=== PATIENT | female | born 1965 | race Caucasian/White ===

== ENCOUNTER 2017-11-06 19:29 | Emergency (ER) | payer OTHER, SELFPAY ==
[2017-11-06 19:31] VITALS: BP 162/88; PULSE 81; RESP 17; TEMP 37.1; O2SAT 98; BMI 33.7
--- NOTE | 2017-11-06 20:19 | RAD_ITS ---
STUDY: X-RAY - LEFT FOOT CLINICAL: Female, 52 years old. Wound to lateral foot. Pain and swelling TECHNIQUE: 3 view(s) of the foot. COMPARISON: None. FINDINGS: There is no evidence of fracture or dislocation. There is soft tissue swelling at the lateral aspect of the left foot. There is a small amount of subcutaneous air. There are no radiographic findings of osteomyelitis. There are moderate degenerative changes in the midfoot. Plantar calcaneal spur noted. There are no radiodense foreign bodies. RAD/Foot min 3 Views IMPRESSION: Soft tissue swelling with a small amount of subcutaneous air at the lateral aspect of the left foot. No radiographic findings of osteomyelitis. If concern persists, consider further evaluation with MRI. No fracture or dislocation. Moderate degenerative changes. Electronically Signed: Manolo Merino, at 20:29 EDT Tel , Service support ,
[2017-11-06 20:25] LABS: Absolute Lymphocyte Count 2.68 X10^3/ul (0.83-4.51); Absolute Neutrophil Count 5.2 X10^3/uL (2.0-7.7); Basophil% 0.3 % (0-1); Eosinophil# 0.16 X10^3/uL; Eosinophils% 1.8 % (0-5); Hematocrit 33.8 % (37-47); Hemoglobin 11.5 g/dl (12.0-15.0); Lymphocyte # 2.68 X10^3/ul (4.0); Lymphocyte % 30.9 % (19-41); Mean Corpuscular Hgb 30.7 pg (27.0-32.0); Mean Corpuscular Volume 90.1 fL (81-99); Mean Platelet Vol. 9.5 fl (6.2-12.0); Monocyte# 0.59 X10^3/uL; Monocyte% 6.8 % (0-10); Neutrophil # 5.21 X10^3/uL (2.7-7.7); Neutrophil % 60.1 % (47-70); Platelet Count 186 K/mm3 (150-450); RBC Distribution Width SD 42.6 fl (35.1-43.9); Red Blood Count 3.75 M/mm3 (4.2-5.4); White Blood Count 8.7 K/mm3 (4.4-11.0)
[2017-11-06 20:26] LABS: Basophil# 0.03 X10^3/uL
[2017-11-06 20:29] LABS: POSITIVE COUNT NO; POSITIVE DIFFERENTIAL NO; POSITIVE MORPHOLOGY NO
[2017-11-06 20:36] LABS: Anion Gap 11 (5-15); BUN 22 mg/dL (7-18); BUN/Creat Ratio 15.4 RATIO (10-20); Calcium,Total 8.7 mg/dL (8.5-10.1); Chloride 101 mmol/L (98-107); Creatinine, Serum 1.43 mg/dL (0.55-1.02); EST Glomerular Filtration Rate 41 mL/min (>60); Est Glom Filt Rate - Afr Amer 49 mL/min (>60); Estimated Creatinine Clearance 44.24 ml/min; Glucose 336 mg/dL (74-106); Potassium 4.2 mmol/L (3.5-5.1); Sodium Level 137 mmol/L (136-145)
[2017-11-06] MEDS: 0.9% Normal Saline 1,000 ML 150 ML IV (21:17)
--- NOTE | 2017-11-06 21:35 | ED.VISSUMM ---
- ER Visit Summary Date of Service: 11/06/17 Chief Complaint: Diabetic ulcer left foot History of Present Illness: The patient is a 52 F who noted a blister to the palm of her left foot in the mirror today. She does state her feet have been achy for the past week and a half. She noted a red streak on the top of her foot tonight so came in to be checked. Patient does have a history of diabetes, hypertension, high cholesterol. She does admit to being out of 2 of her diabetes medications over the past couple weeks. Physical Examination: Vital signs significant for blood pressure 162/88, otherwise unremarkable. Head and neck examination normal. Heart is regular rate and rhythm. Lung sounds are clear. Abdomen is soft nontender. Left lower extremity examination was a 3 cm diameter blister to the lateral plantar surface of the left foot. The blister does appear to be callused and thickened, but is split across the center. There is no drainage at this time. She does have a lymphangitic streak from that blister onto the top of her foot. Test Results: Left foot x-rays reveal soft tissue swelling with small amount of subcu air over the lateral left foot. There are no findings consistent with osteomyelitis. CBC was normal white count with normal differential. Hemoglobin is 11.5. Chemistry studies reveal glucose of 336, BUN 20, creatinine 1.43. I do not have any prior labs to compare to. Emergency Department Course and Treatment: Blood cultures have been drawn. Clindamycin was given IV. On repeat evaluation patient is resting comfortably. Foot is cleansed and dressed. She is encouraged to increase fluids over the next several days. We will write her for clindamycin along with refills on her Glimepiride and Januvia. If the patient develops worsening of the lymphangitic streaking, fever, chills, etc. she is to return for IV antibiotics. She voices understanding and agreement. She is referred to podiatry for follow-up. Treatment Plan: [] Disposition: Discharge Impression: Left foot blister with cellulitis This note was generated with [employer] software. It may contain incorrect words, spelling, and punctuation that were not noted in review of the chart prior to signing ED Disposition - Plan for ED Patient: Disposition: Home or Assisted Living Chief Complaint: Wound Instructions: ED Infec Skin Cellulitis Prescriptions: Glimepiride [Amaryl] 2 mg PO DAILY #14 tablet Sitagliptin Phosphate [Januvia] 100 mg PO DAILY #14 tablet Clindamycin [Cleocin] 300 mg PO 4X/DAY #80 capsule Referrals: Ted Denis MD [Primary Care Provider] - 1-2 Weeks Adrián Duron DPM [STAFF PHYSICIAN] - As Needed
--- NOTE | 2017-11-06 21:38 | DCINST.ED_ITS ---
ED Disposition - Plan for ED Patient: Disposition: Home or Assisted Living Chief Complaint: Wound Instructions: ED Infec Skin Cellulitis Prescriptions: Glimepiride [Amaryl] 2 mg PO DAILY #14 tablet Sitagliptin Phosphate [Januvia] 100 mg PO DAILY #14 tablet Clindamycin [Cleocin] 300 mg PO 4X/DAY #80 capsule Referrals: Ted Denis MD [Primary Care Provider] - 1-2 Weeks Adrián Duron DPM [STAFF PHYSICIAN] - As Needed
[2017-11-06 21:42] VITALS: BP 165/79; PULSE 80; RESP 16; O2SAT 96
[2017-11-06] MEDS: Glimepiride 2 MG Tablet PO (21:53)
[2017-11-06] MEDS: LINAGLIPTIN 5 MG TABLET PO (21:53)
[2017-11-06 22:15] VITALS: BP 165/79; PULSE 80; RESP 16; O2SAT 96
== END 2017-11-06 22:17 | disposition home or self-care (01) ==
PROVIDERS: Emergency Provider Emergency Medicine
DX: L03.116 Cellulitis of left lower limb (principal); E11.621 Type 2 diabetes mellitus with foot ulcer; I10 Essential (primary) hypertension; E78.00 Pure hypercholesterolemia, unspecified
CPT/HCPCS: 36415; 73630; 80048; 85025; 87040; 99285; J7030; A4216

== ENCOUNTER 2018-07-02 11:35 | Emergency (ER) | payer OTHER, SELFPAY ==
[2018-07-02 11:36] VITALS: BP 151/83; PULSE 97; RESP 16; TEMP 36.2; O2SAT 97; BMI 31.3
--- NOTE | 2018-07-02 11:59 | CT_ITS ---
STUDY: CT SOFT TISSUE NECK WITH CONTRAST REASON FOR EXAM: Female, 52 years old. Possible abscess of the left teeth. RADIATION DOSAGE (If Supplied By Facility): CTDIvol = ( 13.88 ) mGy, DLP = ( 414.14 ) mGycm TECHNIQUE: The patient was scanned in a multi-detector CT scanner. High resolution transaxial imaging was performed following intravenous administration of 100ml IV Isovue 370. Sagittal and coronal images were reconstructed. Individualized dose optimization techniques were used for this CT. COMPARISON: None. FINDINGS: There is diffuse soft tissue swelling overlying the left side of the mandible and extending into the region of the left masseter muscle. The left masseter muscle is inhomogeneous. Possible abscess formation is seen. There is evidence of a small collection of gas in the soft tissues overlying the right lower mandible. Normal bilateral parotid glands. Normal bilateral edge cutter spaces. Normal bilateral parapharyngeal spaces. Normal bilateral carotid spaces. Normal bilateral sublingual and submandibular glands and spaces. Normal visualized nasopharynx. Normal retropharyngeal space. Normal perivertebral space. Normal visualized bilateral faucial tonsils. The visualized tongue, tongue base and oropharynx are normal. The visualized cervical lymph nodes (levels I-) are within normal size limits, and maintain normal morphology. There is no demonstrated solid or cystic mass lesion. There is no abnormal contrast enhancement. Normal epiglottis, bilateral vallecula and hypopharynx. The pre-epiglottic and paraglottic adipose spaces are normal. Normal visualized bilateral piriform sinuses, aryepiglottic folds, vocal cords, and arytenoid-cricoid articulations. Normal subglottic trachea. There is a 1.3 cm x 1 cm hypodense nodule with calcification in the upper pole of the right lobe of the thyroid. Normal visualized pulmonary apices. Mucosal thickening of the left maxillary sinus. There is multilevel degenerative changes of the cervical spine. CT/Soft Tissue Neck WITH Contrast IMPRESSION: Diffuse soft tissue swelling overlying the left side of the mandible extending into the left masseter muscle with air within the deep soft tissues suggestive of an abscess formation. Electronically Signed: Axel Harris, at 14:08 EDT , Service support ,
[2018-07-02] MEDS: Ondansetron 4 MG/2 ML Vial IV (12:42)
[2018-07-02] MEDS: 0.9% Normal Saline 1,000 ML 1000 ML IV (12:42)
[2018-07-02] MEDS: Morphine 4 MG/ML Syringe IV ×3 (12:44→17:59)
[2018-07-02 13:02] LABS: Absolute Lymphocyte Count 1.64 X10^3/ul (0.83-4.51); Absolute Neutrophil Count 8.3 X10^3/uL (2.0-7.7); Basophil# 0.02 X10^3/uL; Basophil% 0.2 % (0-1); Eosinophil# 0.18 X10^3/uL; Eosinophils% 1.7 % (0-5); Hematocrit 28.2 % (37-47); Hemoglobin 9.3 g/dl (12.0-15.0); Lymphocyte # 1.64 X10^3/ul (4.0); Lymphocyte % 15.1 % (19-41); Mean Corpuscular Hgb 29.9 pg (27.0-32.0); Mean Corpuscular Volume 90.7 fL (81-99); Mean Platelet Vol. 9.3 fl (6.2-12.0); Monocyte# 0.76 X10^3/uL; Neutrophil # 8.26 X10^3/uL (2.7-7.7); Neutrophil % 75.8 % (47-70); Platelet Count 196 K/mm3 (150-450); RBC Distribution Width CV 13.9 % (11.6-14.6); Red Blood Count 3.11 M/mm3 (4.2-5.4); White Blood Count 10.9 K/mm3 (4.4-11.0)
[2018-07-02 13:05] LABS: POSITIVE COUNT NO; POSITIVE DIFFERENTIAL NO; POSITIVE MORPHOLOGY NO
[2018-07-02 13:11] LABS: Anion Gap 5 (5-15); BUN 25 mg/dL (7-18); BUN/Creat Ratio 22.3 RATIO (10-20); Calcium,Total 8.6 mg/dL (8.5-10.1); Chloride 110 mmol/L (98-107); Creatinine, Serum 1.12 mg/dL (0.55-1.02); EST Glomerular Filtration Rate 54 mL/min (>60); Est Glom Filt Rate - Afr Amer 65 mL/min (>60); Estimated Creatinine Clearance 56.49 ml/min; Glucose 144 mg/dL (74-106); Potassium 4.2 mmol/L (3.5-5.1); Sodium Level 140 mmol/L (136-145)
[2018-07-02 14:03] VITALS: BP 120/74; PULSE 81; RESP 17; O2SAT 96
[2018-07-02 17:11] VITALS: BP 134/76; PULSE 100; RESP 16; O2SAT 94
--- NOTE | 2018-07-02 17:47 | ED.VISSUMM ---
- ER Visit Summary Date of Service: 07/02/18 Chief Complaint: Facial swelling History of Present Illness: The patient is a [address] Denis. She reports that she has facial swelling in the left began 4 days ago. States that she saw her dentist 3 days ago was placed on amoxicillin despite this the pain and swelling is worsening. She describes a throbbing pain is 1010 at worst and 6 out of 10 currently. Is worsened by laying on it. Sick ibuprofen and Tylenol without relief. She reports that she had a fever to 101 degrees 2 days ago, but has not had fever since then. She does report that it seems as though the tooth is draining pus into her mouth. Physical Examination: Vitals: Stable. Afebrile. Mouth: She does have trismus was limits my ability to do the exam. There is no focal abscess by the left mandibular second molar which is the source of this. There is obvious decay here. She does have some swelling to the left submandibular area. There is no evidence of Logwood's angina at this time. General: A&O x 3. NAD. Cardiovascular exam: Regular rate and rhythm, no murmur, rub or gallop. Respiratory exam: Clear to auscultation bilaterally. No wheezes or stridor. Abdominal exam: Soft, nontender, nondistended, normal bowel sounds. No peritoneal signs. Extremity: No clubbing, cyanosis, or edema. Test Results: CBC is marked for an H&H 9.3 and 28.2, 7 neutrophils 76, lymphs lites 15. Chem-7 shows a chloride of 110, BUN 25, creatinine 1.12, glucose 144. Clinical Impression(s) from Imaging Studies Soft Tissue Neck CT 07/02/18 11:59 IMPRESSION: Diffuse soft tissue swelling overlying the left side of the mandible extending into the left masseter muscle with air within the deep soft tissues suggestive of an abscess formation. Electronically Signed: Axel Harris, at 14:08 EDT , Service support , Emergency Department Course and Treatment: The patient was given morphine, Zofran, clindamycin IV. Treatment Plan: Patient was discussed with Dr. Reyes. At this time he suspects the trismus is really mainly due to irritation of the masseter muscle she does not require surgery as long as the airway is patent. Patient will be discharged with clindamycin and Percocet. Instructed follow-up Dr. Reyes this week for repeat exam. Return to the emergency department for any worsening symptoms. Disposition: To home in improved and stable condition. Impression: 1. Dental abscess. 2. Trismus. This note was generated with [employer] dictation software. It may contain incorrect words, spelling, and punctuation that were not noted in review of the chart prior to signing ED Disposition - Plan for ED Patient: Disposition: Home or Assisted Living Instructions: ED Dental Abscess Facial Cellulitis Prescriptions: Oxycodone HCl/Acetaminophen [Percocet 5/325] 1 tablet PO Q6H PRN PRN 5 Days #20 tablet PRN Reason: Pain Clindamycin HCl [Cleocin] 300 mg PO Q6H #40 capsule Referrals: Estuardo Reyes DDS [STAFF PHYSICIAN] - 3-5 Days
--- NOTE | 2018-07-02 18:02 | ED.DCSUM_ITS ---
- ER Visit Summary Date of Service: 07/02/18 Chief Complaint: Facial swelling History of Present Illness: The patient is a [address] Denis. She reports that she has facial swelling in the left began 4 days ago. States that she saw her dentist 3 days ago was placed on amoxicillin despite this the pain and swelling is worsening. She describes a throbbing pain is 1010 at worst and 6 out of 10 currently. Is worsened by laying on it. Sick ibuprofen and Tylenol without relief. She reports that she had a fever to 101 degrees 2 days ago, but has not had fever since then. She does report that it seems as though the tooth is draining pus into her mouth. Physical Examination: Vitals: Stable. Afebrile. Mouth: She does have trismus was limits my ability to do the exam. There is no focal abscess by the left mandibular second molar which is the source of this. There is obvious decay here. She does have some swelling to the left submandibular area. There is no evidence of Logwood's angina at this time. General: A&O x 3. NAD. Cardiovascular exam: Regular rate and rhythm, no murmur, rub or gallop. Respiratory exam: Clear to auscultation bilaterally. No wheezes or stridor. Abdominal exam: Soft, nontender, nondistended, normal bowel sounds. No peritoneal signs. Extremity: No clubbing, cyanosis, or edema. Test Results: CBC is marked for an H&H 9.3 and 28.2, 7 neutrophils 76, lymphs lites 15. Chem-7 shows a chloride of 110, BUN 25, creatinine 1.12, glucose 144. Clinical Impression(s) from Imaging Studies Soft Tissue Neck CT 07/02/18 11:59 IMPRESSION: Diffuse soft tissue swelling overlying the left side of the mandible extending into the left masseter muscle with air within the deep soft tissues suggestive of an abscess formation. Electronically Signed: Axel Harris, at 14:08 EDT , Service support , Emergency Department Course and Treatment: The patient was given morphine, Zofran, clindamycin IV. Treatment Plan: Patient was discussed with Dr. Reyes. At this time he suspects the trismus is really mainly due to irritation of the masseter muscle she does not require surgery as long as the airway is patent. Patient will be discharged with clindamycin and Percocet. Instructed follow-up Dr. Reyes this week for repeat exam. Return to the emergency department for any worsening symptoms. Disposition: To home in improved and stable condition. Impression: 1. Dental abscess. 2. Trismus. This note was generated with [employer] dictation software. It may contain incorrect words, spelling, and punctuation that were not noted in review of the chart prior to signing ED Disposition - Plan for ED Patient: Disposition: Home or Assisted Living Instructions: ED Dental Abscess Facial Cellulitis Prescriptions: Oxycodone HCl/Acetaminophen [Percocet 5/325] 1 tablet PO Q6H PRN PRN 5 Days #20 tablet PRN Reason: Pain Clindamycin HCl [Cleocin] 300 mg PO Q6H #40 capsule Referrals: Estuardo Reyes DDS [STAFF PHYSICIAN] - 3-5 Days
[2018-07-02 18:33] VITALS: BP 141/79; PULSE 102; RESP 16; O2SAT 95
== END 2018-07-02 18:36 | disposition home or self-care (01) ==
LOC: ED 12:03
PROVIDERS: Emergency Provider Emergency Medicine
DX: K04.7 Periapical abscess without sinus (principal); R22.0 Localized swelling, mass and lump, head; R25.2 Cramp and spasm; E11.9 Type 2 diabetes mellitus without complications; I10 Essential (primary) hypertension; E78.00 Pure hypercholesterolemia, unspecified; F17.210 Nicotine dependence, cigarettes, uncomplicated; Z79.899 Other long term (current) drug therapy; Z79.84 Long term (current) use of oral hypoglycemic drugs
CPT/HCPCS: 70491; 80048; 85025; 96365; 96375; 96376; 99283; J7030; J7050; Q9967; A4216; J0295; J2405

== ENCOUNTER 2018-07-09 09:39 | Observation (INO) | payer OTHER, SELFPAY ==
[2018-07-09] VITALS (17 sets, daily range): BP systolic 129–146; BP diastolic 56–86; PULSE 69–105; RESP 16–18; TEMP 36–37.4; O2SAT 89–100; BMI 31.3; BMI 32.2; BMI 32.3
--- NOTE | 2018-07-09 10:14 | ED.VIS.GEN ---
History of Present Illness Chief Complaint: Dental Informant: Patient Onset: Weeks Current Severity: Mild Maximum Severity: Moderate Narrative: 52-year-old female presents with a dental abscess. She has been dealing with this for the past 2 weeks. She has been on several courses of oral antibiotics and following with an oral surgeon. She is not improving, has developed trismus, and swelling/pain of the left side of her face to her eye. She saw her oral surgeon today and was sent to the emergency department for admission with a plan to operate this evening. It is worse with palpation. It is better with oral antibiotics. Past Medical History - Allergies and Home Meds Allergies/Adverse Reactions: Allergies No Known Allergies Allergy (Verified 07/02/18 11:36) Primary Care Physician: Ted Denis MD [Primary Care Provider] - Prior records reviewed: Yes - Diabetes, hypertension Surgical History: no surgical history Smoking Status: Current every day smoker Review of Systems General: Denies: Chills, Fever, Sweats Eyes: Denies: Visual changes - bilaterally, Diplopia ENT: Reports: - - dental pain. Denies: Rhinorrhea, Sore throat Cardiovascular: Denies: Chest pain, Palpitations Respiratory: Denies: Dyspnea, Cough, Dyspnea on exertion Gastrointestinal: Denies: Abdominal pain, Nausea, Vomiting, Diarrhea, Melena, Hematochezia Genitourinary: Denies: Dysuria, Hematuria, Frequency Musculoskeletal: Denies: Back pain, Extremity Pain Skin: Denies: Rash, Wounds Neurological: Denies: Headache, Weakness, Numbness Physical Exam Vital Signs/Narrative: Vital Signs Temp Pulse Resp BP Pulse Ox 07/09/18 09:55 98.8 F 76 16 137/86 H 97 General: Well nourished, Well developed, No Acute Distress Head: Normocephalic, Atraumatic Eyes: Perrl, EOMI ENT: Moist mucous membranes, No rhinorrhea, - - There is submandibular tenderness and fullness on the left and tenderness and induration on the left side of her cheek. Intraoral exam is quite limited by her trismus but she is still handling her secretions without difficulty. Anterior neck structures are soft and voice is normal. Neck: Supple, Nontender Cardiovascular: Regular rate, Regular rhythm, No murmurs Respiratory: No distress, CTA bilaterally, Chest nontender Abdomen: Soft, Nontender, Nondistended, Normal bowel sounds Back: Nontender, Normal Inspection Extremities: Nontender, No edema Skin: Normal color, No rash Neurological: Alert, Oriented x3, Cranial nerves II-XII grossly intact, Normal Strength, Normal Sensation Psychological: Normal affect, Normal Mood Diagnostic/Tx/Re-eval - Medical Decision Making I discussed the case with her oral surgeon as well as the hospitalist. I have ordered a CBC, BMP, and will review them. She was given IV clindamycin. She is protecting her airway without difficulty and I do not feel she needs imaging at this time. We will admit her medically for IV antibiotics, keep her n.p.o., and her surgeon will operate this evening. ED Disposition - Plan for ED Patient: Diagnosis: Dental abscess Referrals: Ted Denis MD [Primary Care Provider] -
[2018-07-09 10:20] LABS: Absolute Lymphocyte Count 1.43 X10^3/ul (0.83-4.51); Absolute Neutrophil Count 12.7 X10^3/uL (2.0-7.7); Basophil# 0.02 X10^3/uL; Basophil% 0.1 % (0-1); Eosinophil# 0.11 X10^3/uL; Eosinophils% 0.7 % (0-5); Hematocrit 29.6 % (37-47); Hemoglobin 9.8 g/dl (12.0-15.0); Lymphocyte # 1.43 X10^3/ul (4.0); Lymphocyte % 9.4 % (19-41); Mean Corp Hgb Conc 33.1 g/gl (32-36); Mean Corpuscular Volume 90.5 fL (81-99); Mean Platelet Vol. 8.3 fl (6.2-12.0); Monocyte# 0.88 X10^3/uL; Monocyte% 5.8 % (0-10); Neutrophil # 12.72 X10^3/uL (2.7-7.7); Neutrophil % 83.1 % (47-70); Platelet Count 405 K/mm3 (150-450); RBC Distribution Width CV 13.5 % (11.6-14.6); RBC Distribution Width SD 44.5 fl (35.1-43.9); Red Blood Count 3.27 M/mm3 (4.2-5.4); White Blood Count 15.3 K/mm3 (4.4-11.0)
[2018-07-09 10:22] LABS: POSITIVE COUNT NO; POSITIVE DIFFERENTIAL NO; POSITIVE MORPHOLOGY NO
[2018-07-09 10:29] LABS: Anion Gap 5 (5-15); BUN 21 mg/dL (7-18); BUN/Creat Ratio 18.8 RATIO (10-20); Calcium,Total 9.1 mg/dL (8.5-10.1); Chloride 105 mmol/L (98-107); Creatinine, Serum 1.12 mg/dL (0.55-1.02); EST Glomerular Filtration Rate 54 mL/min (>60); Est Glom Filt Rate - Afr Amer 65 mL/min (>60); Estimated Creatinine Clearance 56.49 ml/min; Glucose 112 mg/dL (74-106); Potassium 4.5 mmol/L (3.5-5.1); Sodium Level 136 mmol/L (136-145)
[2018-07-09] MEDS: Ondansetron 4 MG/2 ML Vial IV (10:34)
[2018-07-09] MEDS: Morphine 4 MG/ML Syringe IV ×2 (10:34→13:40)
--- NOTE | 2018-07-09 12:18 | EKG12_ITS ---
Test Reason : PREOP Blood Pressure : / mmHG Vent. Rate : 067 BPM Atrial Rate : 067 BPM P-R Int : 162 ms QRS Dur : 080 ms QT Int : 400 ms P-R-T Axes : 055 003 020 degrees QTc Int : 422 ms Normal sinus rhythm Septal infarct , age undetermined Abnormal ECG Confirmed by KAREN CORNELIUS, ANNA ([id number]), editor school photograph MIRLANDE ELAINE ([id number]) on 07/21/2018 1:50:48 PM Referred By: Estuardo Reyes Confirmed By:ANNA JONES MD
[2018-07-09 13:08] LABS: Hemoglobin A1c 7.1 % (4.2-6.3)
[2018-07-09] MEDS: 0.9% Normal Saline 1,000 ML 75 ML IV (13:40)
--- NOTE | 2018-07-09 13:52 | PCM.HP.STD ---
Problem List (1) Type 2 diabetes mellitus Status: Chronic (2) Obesity Status: Chronic Qualifiers: Obesity type: due to excess calories Body mass index: BMI 32.0-32.9 (3) Hypertension Status: Chronic Qualifiers: Hypertension type: essential hypertension Qualified Code(s): I10 - Essential (primary) hypertension (4) Hyperlipidemia Status: Chronic (5) Normochromic normocytic anemia Status: Chronic (6) Elevated serum creatinine Status: Chronic Comment: stage III CRF (7) History of PTCA Status: Chronic Comment: 2 stents done at [facility] in 2017 (8) CAD (coronary artery disease) Status: Chronic Qualifiers: Coronary Disease-Associated Artery/Lesion type: [place] artery History of Present Illness Date of Admission: 07/09/18 Chief Complaint: dental abscess - failed OP antibiotics The patient is a 52 year old F with a PMH of HTN, HLD, tobacco dependence, CAD, GERD, cholelithiasis and PTCA with [address] [facility] in 2017 who was sent to the Ed at [facility] by Dr. Reyes for a dental abscess involving the L mandible that has not improved with OP antibiotics over the past 2 weeks. The pt now has trismus....she can open her mouth enough to protrude her tongue. Denies drooling and is able to manage her saliva. The left submandibular gland is very indurated and painful to palpate. Vital signs of presentation to the emergency department were temperature 98.8, pulse rate 76, blood pressure 137/86, respiratory rate 16 and she is 97% saturated on room air. White blood cell count is elevated at 15.3 with 83% neutrophils. TINO globin is 9.8 with normochromic normocytic indices and a normal RDW. Platelets are normal at 405,000. BMP is remarkable for an elevated BUN at 21 with a creatinine of 1.12. The GFR is 54 which is consistent with stage III chronic renal failure. Hemoglobin A1c is 7.1. No XRAYS were done in the ED. She was admitted to the hospital and made NPO for planned surgery tonight. Clindamycin IV was started in the ED and we will continue this 600 mg IV Q 8 hours. Past Medical History Past Medical History (Chronic Problems): Chronic Problems Type 2 diabetes mellitus (Chronic) Obesity (Chronic) Hypertension (Chronic) Hyperlipidemia (Chronic) Normochromic normocytic anemia (Chronic) Elevated serum creatinine (Chronic) stage III CRF History of PTCA (Chronic) 2 stents done at [facility] in 2016 CAD (coronary artery disease) (Chronic) Allergies No Known Allergies Allergy (Verified 07/09/18 12:38) Home Medications: Ambulatory Orders Medication Instructions Recorded Sitagliptin Phosphate [Januvia] 100 mg PO DAILY #14 tablet 11/06/17 Clindamycin HCl [Cleocin] 300 mg PO Q6H #40 capsule 07/02/18 Losartan Potassium [Cozaar] 50 mg PO DAILY 07/02/18 Metformin HCl [Glucophage] 1,000 mg PO BIDCM 07/02/18 Omeprazole [Prilosec] 20 mg PO DAILY 07/02/18 Pravastatin [Pravachol] 40 mg PO DAILY 07/02/18 Ticagrelor [Brilinta] 90 mg PO DAILY 07/02/18 Glimepiride [Amaryl] 4 mg PO DAILY 07/09/18 Metronidazole 500 mg PO TID 07/09/18 Surgical History: hysterectomy - Hysterectomy with bilateral oophorectomy and removal of a 25 pound ovarian mass-benign, - - PTCA with 2 stents done at [facility] in 2016 Psychiatric History: No pertinent psych hx [employer]BER History: - - 25 lb benign ovarian mass - S/P Lives: Spouse/ Significant Other - hysterectomy with bilateral oophorectomy. Smoking Status: Current every day smoker - 1 pack/day Tobacco Use: Cigarettes Alcohol: Occasional Drugs: None - *Family History Paternal History Items: Heart Disease, - - Father of a myocardial infarction and there is an extensive history of heart disease on the father's side of the family. Maternal History Items: COPD, - - Mother of COPD Review of Systems Constitutional: Reports: Malaise. Denies: Chills, Fever, Weight Change HEENT: Reports: - - unable to open her mouth wide. Denies: Difficulty Swallowing, Ear Pain, Head Aches, Sinus Congestion, Sinus Drainage Cardiovascular: Denies: Chest Pain, Edema, Heaviness, Light Headedness, Palpitations Respiratory: Denies: Cough, Shortness of breath at rest, Sputum production Gastrointestinal: Denies: Abdominal Pain, Nausea, Vomiting Genitourinary: Denies: Dysuria Musculoskeletal: Denies: Joint Pain, Joint Tenderness Skin: Denies: Jaundice, Rash, Wounds Neurological: Reports: Difficulty swallowing - due to the dental abscess has been eating soft foods because of pain. Denies: Focal weakness, Numbness, Tingling Psychiatric: Denies: Anxiety, Depression, Homicidal Ideations, Suicidal Ideations Endocrine: Denies: Hx of Thyroiditis Hematologic/ Lymphatic: Denies: Easy Bruising, Easy Bleeding, Hx of blood clot VTE Information - Inpt Only VTE Present on Admission: No VTE Mechan Device Prophylaxis: SCD's, Knee High ADYO Hose VTE Pharm Prophylaxis ordered?: No Reason prophylaxis not ordered:: Treatment Not Indicated - held for surgery Patient Problems: Active and Suspected Problems Dental abscess (Acute) - Physical Exam General: Alert, Oriented x3, Cooperative, No apparent distress, Well developed, Well nourished HEENT: Atraumatic, PERRLA, EOMI, Normocephalic Oral: - - Only able to protrude her tongue through her teeth and cannot open her mouth wide due to trismus. No drooling. She has marked induration/swelling in the left submandibular area and also has swelling that extends from the left mandible up to just beneath the eye. There is no erythema. I was unable to visualize the pharynx secondary to trismus. Neck: Supple, No JVD, Negative Carotid Bruits Lungs: Clear to auscultation, Normal air movement Cardiovascular: Regular rate, Regular Rhythm, Normal S1, Normal S2, No murmurs, No Ectopic Activity, No rub noted, No Gallop Abdomen: Bowel Sounds Present, Soft, Non Tender, Non-Distended, Obese Extremities: No clubbing, No cyanosis, No edema, Capillary Refill Less than 3 Seconds, No Calf Tenderness, Peripheral Pulses Normal Skin: No rashes, No breakdown Musculoskeletal: No Tenderness to Palpation of Joints or Extremities, No Muscle Wasting Lymphatic: Cervical Adenopathy Neurological: Cranial nerves II-XII grossly intact, Neuro grossly intact Psych/Mental Status: Normal Affect, Appropriate Vital Signs Temp Pulse Resp BP Pulse Ox 98.1 F 69 18 129/56 H 95 07/09/18 13:46 07/09/18 13:46 07/09/18 13:46 07/09/18 13:46 07/09/18 13:46 Oxygen Delivery Method Room Air Weight: 206 lb Body Mass Index (BMI) 32.2 Laboratory Tests Past 24 Hrs 07/09/18 07/09/18 07/09/18 10:10 10:10 10:10 WBC 15.3 H RBC 3.27 L Hgb 9.8 L Hct 29.6 L MCV 90.5 MCH 30.0 MCHC 33.1 RDW 13.5 RDW Differential 44.5 H Plt Count 405 MPV 8.3 Immature Gran % (Auto) 0.900 Neut % (Auto) 83.1 H Lymph % (Auto) 9.4 L [place] % (Auto) 5.8 Eos % (Auto) 0.7 Baso % (Auto) 0.1 Absolute Neuts (auto) 12.7 H Absolute Lymphs (auto) 1.43 Total Counted Not Reportable Sodium 136 Potassium 4.5 Chloride 105 Carbon Dioxide 26.0 Anion Gap 5 BUN 21 H Creatinine 1.12 H Estim Creat Clear Calc 56.49 Est GFR (MDRD) Af Amer 65 Est GFR (MDRD) Non-Af 54 L BUN/Creatinine Ratio 18.8 Glucose 112 H Hemoglobin A1c 7.1 H Calcium 9.1 Assessment/Plan All Active Problems Dental abscess (Acute) Impressions 1. Dental abscess left mandible with trismus unresponsive to outpatient antibiotics for the past 2 weeks 2. Hypertension 3. Hyperlipidemia 4. Coronary artery disease 5. History of PTCA in 2017 at [facility] with 2 stents placed-patient does not recall which artery. 6. Obesity 7. GERD 8. Elevated Creat - Possible stage III chronic renal failure however we only have limited lab available on this patient and this may be acute Admitted to [facility] 2 N.p.o. IV fluids started All oral meds have been held Accu-Cheks before meals and at bedtime with sliding scale insulin coverage until she is able to take a diet SCDs and teds hose for DVT prophylaxis. Pharmacologic prophylaxis held for surgery planned this afternoon Recheck lab in the a.m. clindamycin 600 mg IV every 8 hours Code Visit Inpatient E&M: 69687 Init Hosp L2
--- NOTE | 2018-07-09 13:57 | HP.PCM_ITS ---
Problem List (1) Type 2 diabetes mellitus Status: Chronic (2) Obesity Status: Chronic Qualifiers: Obesity type: due to excess calories Body mass index: BMI 32.0-32.9 (3) Hypertension Status: Chronic Qualifiers: Hypertension type: essential hypertension Qualified Code(s): I10 - Essential (primary) hypertension (4) Hyperlipidemia Status: Chronic (5) Normochromic normocytic anemia Status: Chronic (6) Elevated serum creatinine Status: Chronic Comment: stage III CRF (7) History of PTCA Status: Chronic Comment: 2 stents done at [place] in 2017 (8) CAD (coronary artery disease) Status: Chronic Qualifiers: Coronary Disease-Associated Artery/Lesion type: [place] artery History of Present Illness Date of Admission: 07/09/18 Chief Complaint: dental abscess - failed OP antibiotics The patient is a 52 year old F with a PMH of HTN, HLD, tobacco dependence, CAD, GERD, cholelithiasis and PTCA with 2 stents at [facility] in 2017 who was sent to the Ed at [facility] by Dr. Reyes for a dental abscess involving the L mandible that has not improved with OP antibiotics over the past 2 weeks. The pt now has trismus....she can open her mouth enough to protrude her tongue. Denies drooling and is able to manage her saliva. The left submandibular gland is very indurated and painful to palpate. Vital signs of presentation to the emergency department were temperature 98.8, pulse rate 76, blood pressure 137/86, respiratory rate 16 and she is 97% saturated on room air. White blood cell count is elevated at 15.3 with 83% neutrophils. TINO globin is 9.8 with normochromic normocytic indices and a normal RDW. Platelets are normal at 405,000. BMP is remarkable for an elevated BUN at 21 with a creatinine of 1.12. The GFR is 54 which is consistent with stage III chronic renal failure. Hemoglobin A1c is 7.1. No XRAYS were done in the ED. She was admitted to the hospital and made NPO for planned surgery tonight. Clindamycin IV was started in the ED and we will continue this 600 mg IV Q 8 hours. Past Medical History Past Medical History (Chronic Problems): Chronic Problems Type 2 diabetes mellitus (Chronic) Obesity (Chronic) Hypertension (Chronic) Hyperlipidemia (Chronic) Normochromic normocytic anemia (Chronic) Elevated serum creatinine (Chronic) stage III CRF History of PTCA (Chronic) 2 stents done at [place] in 2016 CAD (coronary artery disease) (Chronic) Allergies No Known Allergies Allergy (Verified 07/09/18 12:38) Home Medications: Ambulatory Orders Medication Instructions Recorded Sitagliptin Phosphate [Januvia] 100 mg PO DAILY #14 tablet 11/06/17 Clindamycin HCl [Cleocin] 300 mg PO Q6H #40 capsule 07/02/18 Losartan Potassium [Cozaar] 50 mg PO DAILY 07/02/18 Metformin HCl [Glucophage] 1,000 mg PO BIDCM 07/02/18 Omeprazole [Prilosec] 20 mg PO DAILY 07/02/18 Pravastatin [Pravachol] 40 mg PO DAILY 07/02/18 Ticagrelor [Brilinta] 90 mg PO DAILY 07/02/18 Glimepiride [Amaryl] 4 mg PO DAILY 07/09/18 Metronidazole 500 mg PO TID 07/09/18 Surgical History: hysterectomy - Hysterectomy with bilateral oophorectomy and removal of a 25 pound ovarian mass-benign, - - PTCA with 2 stents done at [place] in 2016 Psychiatric History: 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 Smoking Status: Current every day smoker - 1 pack/day Tobacco Use: Cigarettes Alcohol: Occasional Drugs: None - *Family History Paternal History Items: Heart Disease, - - Father of a myocardial infarction and there is an extensive history of heart disease on the father's side of the family. Maternal History Items: COPD, - - Mother of COPD Review of Systems Constitutional: Reports: Malaise. Denies: Chills, Fever, Weight Change HEENT: Reports: - - unable to open her mouth wide. Denies: Difficulty Swallowing, Ear Pain, Head Aches, Sinus Congestion, Sinus Drainage Cardiovascular: Denies: Chest Pain, Edema, Heaviness, Light Headedness, Palpitations Respiratory: Denies: Cough, Shortness of breath at rest, Sputum production Gastrointestinal: Denies: Abdominal Pain, Nausea, Vomiting Genitourinary: Denies: Dysuria Musculoskeletal: Denies: Joint Pain, Joint Tenderness Skin: Denies: Jaundice, Rash, Wounds Neurological: Reports: Difficulty swallowing - due to the dental abscess has been eating soft foods because of pain. Denies: Focal weakness, Numbness, Tingling Psychiatric: Denies: Anxiety, Depression, Homicidal Ideations, Suicidal Elroy ations Endocrine: Denies: Hx of Thyroiditis Hematologic/ Lymphatic: Denies: Easy Bruising, Easy Bleeding, Hx of blood clot VTE Information - Inpt Only VTE Present on Admission: No VTE Mechan Device Prophylaxis: SCD's, Knee High DAYO Hose VTE Pharm Prophylaxis ordered?: No Reason prophylaxis not ordered:: Treatment Not Indicated - held for surgery Patient Problems: Active and Suspected Problems Dental abscess (Acute) - Physical Exam General: Alert, Oriented x3, Cooperative, No apparent distress, Well developed, Well nourished HEENT: Atraumatic, PERRLA, EOMI, Normocephalic Oral: - - Only able to protrude her tongue through her teeth and cannot open her mouth wide due to trismus. No drooling. She has marked induration/swelling in the left submandibular area and also has swelling that extends from the left mandible up to just beneath the eye. There is no erythema. I was unable to visualize the pharynx secondary to trismus. Neck: Supple, No JVD, Negative Carotid Bruits Lungs: Clear to auscultation, Normal air movement Cardiovascular: Regular rate, Regular Rhythm, Normal S1, Normal S2, No murmurs, No Ectopic Activity, No rub noted, No Gallop Abdomen: Bowel Sounds Present, Soft, Non Tender, Non-Distended, Obese Extremities: No clubbing, No cyanosis, No edema, Capillary Refill Less than 3 Seconds, No Calf Tenderness, Peripheral Pulses Normal Skin: No rashes, No breakdown Musculoskeletal: No Tenderness to Palpation of Joints or Extremities, No Muscle Wasting Lymphatic: Cervical Adenopathy Neurological: Cranial nerves II-XII grossly intact, Neuro grossly intact Psych/Mental Status: Normal Affect, Appropriate Vital Signs Temp Pulse Resp BP Pulse Ox 98.1 F 69 18 129/56 H 95 07/09/18 13:46 07/09/18 13:46 07/09/18 13:46 07/09/18 13:46 07/09/18 13:46 Oxygen Delivery Method Room Air Weight: 206 lb Body Mass Index (BMI) 32.2 Laboratory Tests Past 24 Hrs 07/09/18 07/09/18 07/09/18 10:10 10:10 10:10 WBC 15.3 H RBC 3.27 L Hgb 9.8 L Hct 29.6 L MCV 90.5 MCH 30.0 MCHC 33.1 RDW 13.5 RDW Differential 44.5 H Plt Count 405 MPV 8.3 Immature Gran % (Auto) 0.900 Neut % (Auto) 83.1 H Lymph % (Auto) 9.4 L [place] % (Auto) 5.8 Eos % (Auto) 0.7 Baso % (Auto) 0.1 Absolute Neuts (auto) 12.7 H Absolute Lymphs (auto) 1.43 Total Counted Not Reportable Sodium 136 Potassium 4.5 Chloride 105 Carbon Dioxide 26.0 Anion Gap 5 BUN 21 H Creatinine 1.12 H Estim Creat Clear Calc 56.49 Est GFR (MDRD) Af Amer 65 Est GFR (MDRD) Non-Af 54 L BUN/Creatinine Ratio 18.8 Glucose 112 H Hemoglobin A1c 7.1 H Calcium 9.1 Assessment/Plan All Active Problems Dental abscess (Acute) Impressions 1. Dental abscess left mandible with trismus unresponsive to outpatient antibiotics for the past 2 weeks 2. Hypertension 3. Hyperlipidemia 4. Coronary artery disease 5. History of PTCA in 2017 at [facility] with 2 stents placed-patient does not recall which artery. 6. Obesity 7. GERD 8. Elevated Creat - Possible stage III chronic renal failure however we only have limited lab available on this patient and this may be acute Admitted to [facility] 2 N.p.o. IV fluids started All oral meds have been held Accu-Cheks before meals and at bedtime with sliding scale insulin coverage until she is able to take a diet SCDs and teds hose for DVT prophylaxis. Pharmacologic prophylaxis held for surgery planned this afternoon Recheck lab in the a.m. clindamycin 600 mg IV every 8 hours Code Visit Inpatient E&M: 68218 Init Hosp L2
[2018-07-09] MEDS: Dextrose 50%-Water 25 GM/50 ML DISP.SYRIN IV (15:06)
[2018-07-09 15:16] LABS: Bedside Glucose 58 mg/dL (70-110)
--- NOTE | 2018-07-09 15:23 | NURSING ---
Report given to Berta Marcus RN. Berta aware that blood sugar only 58 and half amp of given at 1505.
--- NOTE | 2018-07-09 15:30 | RAD_ITS ---
STUDY: X-RAY CHEST REASON FOR EXAM: Female, 52 years old. Preoperative chest TECHNIQUE: Portable chest COMPARISON: None. FINDINGS: The lungs are clear and expanded. There is no demonstrated pleural abnormality. Normal size heart. Normal mediastinum and jigna. Normal visualized pulmonary arteries. Normal visualized aortic arch and descending thoracic aorta. Normal visualized thoracic spine. Normal visualized ribs, clavicles, and shoulders. There is no demonstrated abnormality of the visualized soft tissue structures of the upper abdomen. RAD/Chest 1 View (Portable) IMPRESSION: Normal x-ray examination of the chest. Electronically Signed: Melchor Slade, at 16:03 EDT Tel , Service support ,
[2018-07-09 15:51] LABS: Bedside Glucose 96 mg/dL (70-110)
--- NOTE | 2018-07-09 16:04 | HP.PCM_ITS ---
Problem List (1) Dental abscess Status: Acute Comment: 52 yo female admitted for IV antibiotics and fluids in preparation for I and D of left neck abscess. History of Present Illness Date of Admission: 07/09/18 Chief Complaint: Pain and inability to eat properly from severe trismus The patient is a 52 year old Female seen last week in ED for trismus and infection presumably from left lower tooth. Past Medical History Past Medical History (Chronic Problems): Chronic Problems Type 2 diabetes mellitus (Chronic) Obesity (Chronic) Hypertension (Chronic) Hyperlipidemia (Chronic) Normochromic normocytic anemia (Chronic) Elevated serum creatinine (Chronic) stage III CRF History of PTCA (Chronic) 2 stents done at [place] in 2016 CAD (coronary artery disease) (Chronic) Allergies No Known Allergies Allergy (Verified 07/09/18 12:38) Home Medications: Ambulatory Orders Medication Instructions Recorded Sitagliptin Phosphate [Januvia] 100 mg PO DAILY #14 tablet 11/06/17 Clindamycin HCl [Cleocin] 300 mg PO Q6H #40 capsule 07/02/18 Losartan Potassium [Cozaar] 50 mg PO DAILY 07/02/18 Metformin HCl [Glucophage] 1,000 mg PO BIDCM 07/02/18 Omeprazole [Prilosec] 20 mg PO DAILY 07/02/18 Pravastatin [Pravachol] 40 mg PO DAILY 07/02/18 Ticagrelor [Brilinta] 90 mg PO DAILY 07/02/18 Glimepiride [Amaryl] 4 mg PO DAILY 07/09/18 Metronidazole 500 mg PO TID 07/09/18 Surgical History: hysterectomy - Hysterectomy with bilateral oophorectomy and removal of a 25 pound ovarian mass-benign, - - PTCA with 2 stents done at [place] in 2016 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 Smoking Status: Current every day smoker - 1 pack/day Tobacco Use: Cigarettes Alcohol: Occasional Drugs: None - *Family History Paternal History Items: Heart Disease, - - Father of a myocardial infarction and there is an extensive history of heart disease on the father's side of the family. Maternal History Items: COPD, - - Mother of COPD VTE Information - Inpt Only VTE Present on Admission: Yes VTE Mechan Device Prophylaxis: SCD's VTE Pharm Prophylaxis ordered?: No Patient Problems: Active and Suspected Problems Dental abscess (Acute) 52 yo female admitted for IV antibiotics and fluids in preparation for I and D of left neck abscess. - Physical Exam General: Alert, Oriented x3, Cooperative HEENT: Atraumatic, PERRLA, EOMI, Normocephalic, TM's Clear Oral: Moist Mucosa Neck: Supple Lungs: Clear to auscultation Cardiovascular: Regular rate Abdomen: Soft, Non Tender, Non-Distended Extremities: No clubbing, No cyanosis, No edema Skin: No rashes Musculoskeletal: No Tenderness to Palpation of Joints or Extremities Lymphatic: Cervical Adenopathy Neurological: Cranial nerves II-XII grossly intact Psych/Mental Status: Normal Affect Vital Signs Temp Pulse Resp BP Pulse Ox 98.1 F 69 18 129/56 H 95 07/09/18 15:16 07/09/18 15:16 07/09/18 15:16 07/09/18 15:16 07/09/18 15:16 Oxygen Delivery Method Room Air Weight: 93.44 kg Body Mass Index (BMI) 32.2 Laboratory Tests Past 24 Hrs 07/09/18 07/09/18 07/09/18 10:10 10:10 10:10 WBC 15.3 H RBC 3.27 L Hgb 9.8 L Hct 29.6 L MCV 90.5 MCH 30.0 MCHC 33.1 RDW 13.5 RDW Differential 44.5 H Plt Count 405 MPV 8.3 Immature Gran % (Auto) 0.900 Neut % (Auto) 83.1 H Lymph % (Auto) 9.4 L [place] % (Auto) 5.8 Eos % (Auto) 0.7 Baso % (Auto) 0.1 Absolute Neuts (auto) 12.7 H Absolute Lymphs (auto) 1.43 Total Counted Not Reportable Sodium 136 Potassium 4.5 Chloride 105 Carbon Dioxide 26.0 Anion Gap 5 BUN 21 H Creatinine 1.12 H Estim Creat Clear Calc 56.49 Est GFR (MDRD) Af Amer 65 Est GFR (MDRD) Non-Af 54 L BUN/Creatinine Ratio 18.8 Glucose 112 H Hemoglobin A1c 7.1 H Calcium 9.1 POC Glucose 07/09/18 07/09/18 15:43 15:01 POC Glucose 96 58 L Assessment/Plan All Active Problems Dental abscess (Acute) Left neck abscess from infection stemming from left lower molar. Failed OP therapy with antibiotics now admitted in preparation for I and D left neck.
--- NOTE | 2018-07-09 18:05 | PCM.OPRPT ---
Problem List (1) Dental abscess Status: Acute Comment: 52 yo female admitted for IV antibiotics and fluids in preparation for I and D of left neck abscess. Report of Operation Date of Procedure: 07/09/18 Pre-Operative Diagnosis: Left submandibular, sublingual and residential plumber space abscess Post-Operative Diagnosis: Same Surgery/Procedure Performed:: I and D of left submandibular, sublingual and residential plumber spaces and extraction teeth 19 20 Description of Surgical Findings:: Severe trismus and teeth 19 20 as the source of the dental abscess extending into the secondary spaces. Type of Anesthesia:: General Drains: left neck submandibular space, sublingual space and residential plumber spaces. Estimated Blood Loss (mL): minimal Description of Procedure: Patient taken to OR and placed in supine position. Due to difficult airway glidascope was used. Once intubated the trismus did not get any better making visualization almost impossible in the lower pharyngeal areas. Local anesthesia administered. Tooth 19 extremely decayed and tooth 20 mobile. They were removed. An incision was made in the left submandibular region and sharp/blunt dissection into the left secondary spaces to included submandibular, sublingual and residential plumber spaces. Drains were placed then irrigation with saline. the incision in the neck was loosely closed. The throat was suctioned free of debri and cultures sent of the wound. The patient was awakened and extubated and taken to PACU in stable condition. All sponge and needle counts correct. - Complications None
[2018-07-09 18:11] LABS: Bedside Glucose 64 mg/dL (70-110)
--- NOTE | 2018-07-09 18:13 | OP.PCM_ITS ---
Problem List (1) Dental abscess Status: Acute Comment: 52 yo female admitted for IV antibiotics and fluids in preparation for I and D of left neck abscess. Report of Operation Date of Procedure: 07/09/18 Pre-Operative Diagnosis: Left submandibular, sublingual and international account executive space abscess Post-Operative Diagnosis: Same Surgery/Procedure Performed:: I and D of left submandibular, sublingual and international account executive spaces and extraction teeth 19 20 Description of Surgical Findings:: Severe trismus and teeth 19 20 as the source of the dental abscess extending into the secondary spaces. Type of Anesthesia:: General Drains: left neck submandibular space, sublingual space and international account executive spaces. Estimated Blood Loss (mL): minimal Description of Procedure: Patient taken to OR and placed in supine position. Due to difficult airway glidascope was used. Once intubated the trismus did not get any better making visualization almost impossible in the lower pharyngeal areas. Local anesthesia administered. Tooth 19 extremely decayed and tooth 20 mobile. They were removed. An incision was made in the left submandibular region and sharp/blunt dissection into the left secondary spaces to included submandibular, sublingual and international account executive spaces. Drains were placed then irrigation with saline. the incision in the neck was loosely closed. The throat was suctioned free of debri and cultures sent of the wound. The patient was awakened and extubated and taken to PACU in stable condition. All sponge and needle counts correct. - Complications None
[2018-07-09 18:45] LABS: Bedside Glucose 113 mg/dL (70-110)
--- NOTE | 2018-07-09 19:02 | NURSING ---
just arrived back to floor from surgery
[2018-07-09] MEDS: oxyCODONE 5 MG Tablet PO (21:31)
[2018-07-09 21:46] LABS: Bedside Glucose 65 mg/dL (70-110)
[2018-07-09 21:51] LABS: Bedside Glucose 78 mg/dL (70-110)
[2018-07-09] MEDS: Dext 5%-0.45% NS 1,000 ML 100 ML IV (22:50)
[2018-07-09] MEDS: Acetaminophen 325 MG Tablet 650 MG PO (23:18)
[2018-07-10 02:16] LABS: Bedside Glucose 116 mg/dL (70-110)
[2018-07-10 02:18] VITALS: BP 127/70; PULSE 72; RESP 16; TEMP 37.2; O2SAT 98
[2018-07-10] MEDS: Acetaminophen 325 MG Tablet 650 MG PO ×2 (06:09→20:12)
[2018-07-10 06:35] LABS: Bedside Glucose 111 mg/dL (70-110)
[2018-07-10 07:05] LABS: Absolute Lymphocyte Count 1.93 X10^3/ul (0.83-4.51); Absolute Neutrophil Count 13.4 X10^3/uL (2.0-7.7); Basophil# 0.03 X10^3/uL; Basophil% 0.2 % (0-1); Eosinophil# 0.09 X10^3/uL; Eosinophils% 0.5 % (0-5); Hematocrit 29.8 % (37-47); Hemoglobin 9.5 g/dl (12.0-15.0); Lymphocyte # 1.93 X10^3/ul (4.0); Lymphocyte % 11.6 % (19-41); Mean Corp Hgb Conc 31.9 g/gl (32-36); Mean Corpuscular Hgb 29.4 pg (27.0-32.0); Mean Corpuscular Volume 92.3 fL (81-99); Mean Platelet Vol. 8.9 fl (6.2-12.0); Monocyte# 1.14 X10^3/uL; Monocyte% 6.8 % (0-10); Neutrophil # 13.38 X10^3/uL (2.7-7.7); Neutrophil % 80.1 % (47-70); Platelet Count 424 K/mm3 (150-450); RBC Distribution Width CV 13.3 % (11.6-14.6); RBC Distribution Width SD 44.1 fl (35.1-43.9); Red Blood Count 3.23 M/mm3 (4.2-5.4); White Blood Count 16.7 K/mm3 (4.4-11.0)
[2018-07-10 07:12] LABS: POSITIVE COUNT NO; POSITIVE DIFFERENTIAL NO; POSITIVE MORPHOLOGY NO
[2018-07-10 07:32] LABS: ALB/GLOB Ratio 0.6 RATIO (0.9-2.4); AST(SGOT) 21 U/L (15-37); Alanine Aminotransfer ALT/SGPT 20 U/L (13-56); Albumin, Serum 2.8 g/dL (3.2-5.0); Alkaline Phosphatase 75 U/L (45-117); Anion Gap 5 (5-15); BUN 14 mg/dL (7-18); BUN/Creat Ratio 14.8 RATIO (10-20); Calcium,Total 8.9 mg/dL (8.5-10.1); Chloride 107 mmol/L (98-107); Cholesterol 188 mg/dL (200); Creatinine, Serum 0.95 mg/dL (0.55-1.02); EST Glomerular Filtration Rate 65 mL/min (>60); Est Glom Filt Rate - Afr Amer 79 mL/min (>60); Globulin 4.9 g/dL (2.2-4.2); Glucose 105 mg/dL (74-106); High Density Lipoprotein 24 mg/dL; Potassium 4.6 mmol/L (3.5-5.1); Protein, Total 7.7 g/dL (6.4-8.2); Sodium Level 138 mmol/L (136-145); Triglycerides 213 mg/dL; Very Low Density Lipoprotein 43 mg/dL (5-40)
[2018-07-10] MEDS: oxyCODONE 5 MG Tablet PO ×3 (08:46→21:51)
[2018-07-10 09:16] VITALS: BP 148/76; PULSE 76; RESP 16; TEMP 37.5; O2SAT 97
[2018-07-10] MEDS: Dext 5%-0.45% NS 1,000 ML 100 ML IV ×2 (10:19→21:53)
[2018-07-10] MEDS: Losartan Potassium 50 MG Tablet PO (10:20)
[2018-07-10] MEDS: TICAGRELOR 90 MG TABLET PO (10:20)
--- NOTE | 2018-07-10 10:42 | PCM.PROGNOTE ---
Patient Problems: Active and Suspected Problems Dental abscess (Acute) 52 yo female admitted for IV antibiotics and fluids in preparation for I and D of left neck abscess. Subjective: Day #2 clindamycin All events of the past 24 hours of been reviewed. T-max is 99.5 and that is the current temp. Vital signs are stable and blood pressure is adequately controlled. Pulse ox is 97% on room air today. White blood cell count today is 16.7 with a left shift. Hemoglobin is stable at 9.5. CMP is remarkable for a mildly decreased albumin at 2.8 and increased globulin at 4.9 secondary to infection. Lipid panel shows triglycerides of 213 which is mildly increased. The LDL cholesterol is 121 and not adequately controlled. She is taking pravastatin 40 mg daily. HDL is low at 24. Hemoglobin A1c was 7.1 which is very good. Blood sugar record was reviewed. Blood sugar at at bedtime was low at 65 and rechecked later was 78. The blood sugar at 210 was 116 and the fasting blood sugar is 111. She states her pain is adequately controlled. She denies chest pain, shortness of breath, nausea, drooling. She was able to eat some oatmeal, orange juice and a shake today. Objective: PHYSICAL EXAM: GENERAL: alert, oriented X 3, Cooperative, NAD ORAL: moist mucosa, still with trismus and unable to open her mouth enough for me to see the buccal mucosa NECK: No JVD, supple, trachea midline, There is a drain Left neck where the submandibular gland was opened and a dressing over it. Dr. Reyes may remove the drain today LUNGS: CTA, symmetric chest expansion HEART: RRR, Normal S1 and S2, no rub, no gallop ABDOMEN: soft, NT, ND, BS present, no guarding with palpation EXTREMITIES: no edema, no cyanosis, no calf tenderness SKIN: No rashes, no breakdown NEUROLOGIC: no focal neurologic deficits PSYCH: appropriate, normal affect, pleasant - Physical Exam Vital Signs Temp Pulse Resp BP Pulse Ox 99.5 F H 76 16 148/76 H 97 07/10/18 09:16 07/10/18 09:16 07/10/18 09:16 07/10/18 09:16 07/10/18 09:16 Oxygen Flow Rate (L/min) 2 Oxygen Delivery Method Room Air Weight: 206 lb Body Mass Index (BMI) 32.2 Intake and Output for Last 24 Hours 07/08/18 07/09/18 07/10/18 23:59 23:59 23:59 Intake Total 1500 / 1500 1623 / 1623 Output Total 1300 / 1300 Balance 1500 / 1500 323 / 323 Laboratory Tests Past 24 Hrs 07/09/18 07/10/18 07/10/18 10:10 06:17 06:17 WBC 16.7 H RBC 3.23 L Hgb 9.5 L Hct 29.8 L MCV 92.3 MCH 29.4 MCHC 31.9 L RDW 13.3 RDW Differential 44.1 H Plt Count 424 MPV 8.9 Immature Gran % (Auto) 0.800 Neut % (Auto) 80.1 H Lymph % (Auto) 11.6 L [place] % (Auto) 6.8 Eos % (Auto) 0.5 Baso % (Auto) 0.2 Absolute Neuts (auto) 13.4 H Absolute Lymphs (auto) 1.93 Total Counted Not Reportable Sodium 138 Potassium 4.6 Chloride 107 Carbon Dioxide 26.0 Anion Gap 5 BUN 14 Creatinine 0.95 Estim Creat Clear Calc 66.60 Est GFR (MDRD) Af Amer 79 Est GFR (MDRD) Non-Af 65 BUN/Creatinine Ratio 14.8 Glucose 105 Hemoglobin A1c 7.1 H Calcium 8.9 Total Bilirubin 0.30 AST 21 ALT 20 Alkaline Phosphatase 75 Total Protein 7.7 Albumin 2.8 L Globulin 4.9 H Albumin/Globulin Ratio 0.6 L Triglycerides 213 H Cholesterol 188 LDL Cholesterol 121 VLDL Cholesterol 43 H HDL Cholesterol 24 L POC Glucose 07/10/18 07/10/18 07/09/18 06:29 02:10 21:48 POC Glucose 111 H 116 H 78 07/09/18 07/09/18 07/09/18 21:23 18:43 18:06 POC Glucose 65 L 113 H 64 L 07/09/18 07/09/18 15:43 15:01 POC Glucose 96 58 L Medical Necessity - Tobacco Use Smoking Status: Current every day smoker Tobacco Use: Cigarettes Assessment/Plan All Active Problems Dental abscess (Acute) Impressions 1. Dental abscess left mandible with trismus unresponsive to outpatient antibiotics for the past 2 weeks. taken to surgery on 07/09/18. cultures were sent from surgery. 2. Hypertension 3. Hyperlipidemia-not adequately controlled 4. Coronary artery disease 5. History of PTCA in 2017 at [facility] with 2 stents placed-patient does not recall which artery. 6. Obesity 7. GERD 8. Elevated Creat - Possible stage III chronic renal failure however we only have limited lab available on this patient and this may be acute 9. Diabetes mellitus type 2 with hemoglobin A1c of 7.1 10. Hypoglycemia-likely due to prolonged effect of metformin and Amaryl. await the results of the GM stain and the Culture. If there are GM negatives in the GM stain will probably add Zosyn Adjust the insulin - wait until she is able to take more calories to restart the amaryl , Januvia and the Glucophage. Start Lipitor If no more surgery is planned and the drain is removed will restart the Brilinta Once again discussed smoking cessation and she still refuses the nicotine patch. Discussed low fat diet. 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 Code Visit Inpatient E&M: 85955 Subs Hosp L2
[2018-07-10 11:31] LABS: Bedside Glucose 248 mg/dL (70-110)
[2018-07-10] MEDS: Insulin Lispro 100 UNIT/ML INSULN.PEN SC ×2 (12:07→21:46)
[2018-07-10] MEDS: Enoxaparin 40 MG/0.4 ML Syringe SC (14:31)
[2018-07-10] MEDS: 0.9% NaCl Peripheral Flush Adult/Peds IV ×2 (14:34→16:32)
[2018-07-10 16:11] LABS: Bedside Glucose 139 mg/dL (70-110)
[2018-07-10] MEDS: Morphine 4 MG/ML Syringe IV (16:32)
--- NOTE | 2018-07-10 16:59 | PCM.PN.BLA ---
Progress Note Patient seen in room resting comfortably. Swelling left cheek and neck as one would expect from recent surgery in the face of a significant infection. Drain is putting out minimal mucopurulent discharge. I decided to remove the drains secondary to little output and for patient comfort. Intra- orally the incision sites are intact. Patient is opening a minimal amount approx 10 mm of opening but this is not unusual eith seeing how under anesthesia and paralysis yesterday we only had this amount of opening. The drain sutures were removed and the drains dc'd. She is tolerating PO well and I have encouraged her to continue drinking. At this time my hopes are for a decreasing WBC count and continued no fever and pending cultures continue the cleocin and zosyn possibly to be added. Possible discharge home in the next 24 hours.
[2018-07-10 20:10] VITALS: BP 144/77; PULSE 87; RESP 18; TEMP 37.5; O2SAT 97
[2018-07-10] MEDS: Atorvastatin Calcium 40 MG Tablet PO (21:46)
[2018-07-10 22:01] LABS: Bedside Glucose 194 mg/dL (70-110)
[2018-07-11] MEDS: oxyCODONE 5 MG Tablet PO ×2 (02:39→15:26)
[2018-07-11 02:40] VITALS: BP 152/69; PULSE 76; RESP 18; TEMP 37; O2SAT 98
[2018-07-11 05:44] LABS: Absolute Lymphocyte Count 1.86 X10^3/ul (0.83-4.51); Absolute Neutrophil Count 9.1 X10^3/uL (2.0-7.7); Basophil# 0.02 X10^3/uL; Basophil% 0.2 % (0-1); Eosinophil# 0.13 X10^3/uL; Eosinophils% 1.1 % (0-5); Hematocrit 27.3 % (37-47); Hemoglobin 8.8 g/dl (12.0-15.0); Lymphocyte # 1.86 X10^3/ul (4.0); Lymphocyte % 15.3 % (19-41); Mean Corp Hgb Conc 32.2 g/gl (32-36); Mean Corpuscular Hgb 29.4 pg (27.0-32.0); Mean Corpuscular Volume 91.3 fL (81-99); Mean Platelet Vol. 8.6 fl (6.2-12.0); Monocyte# 0.94 X10^3/uL; Monocyte% 7.7 % (0-10); Neutrophil # 9.08 X10^3/uL (2.7-7.7); Neutrophil % 74.5 % (47-70); Platelet Count 395 K/mm3 (150-450); RBC Distribution Width SD 42.3 fl (35.1-43.9); Red Blood Count 2.99 M/mm3 (4.2-5.4); White Blood Count 12.2 K/mm3 (4.4-11.0)
[2018-07-11 06:19] LABS: POSITIVE COUNT NO; POSITIVE DIFFERENTIAL NO; POSITIVE MORPHOLOGY NO
[2018-07-11] MEDS: Enoxaparin 40 MG/0.4 ML Syringe SC (06:33)
[2018-07-11] MEDS: Insulin Lispro 100 UNIT/ML INSULN.PEN SC ×3 (06:33→17:11)
[2018-07-11] MEDS: Acetaminophen 325 MG Tablet 650 MG PO (06:37)
[2018-07-11 06:46] LABS: Bedside Glucose 180 mg/dL (70-110)
--- NOTE | 2018-07-11 07:24 | PN_ITS ---
Patient Problems: Active and Suspected Problems Dental abscess (Acute) 52 yo female admitted for IV antibiotics and fluids in preparation for I and D of left neck abscess. Subjective: Postoperative day #2 T-max is 99.5 Vital signs are stable. She is 97-98% saturated on room air. White blood cell count is down to 12.2 with 74% neutrophils and 1.2% immature granulocytes. Hemoglobin is 8.8 with normochromic normocytic indices and a normal RDW. Gram stain showed mixed gram-positive organisms. Dr. Reyes removed all the drains last evening. She still has trismus but is able to eat soft foods and liquids. Still c/o pain....mostly around the TMJ . Starting to cough up sputum since she has not been smoking. Denies SOB. Objective: GENERAL: alert, oriented X 3, Cooperative, NAD ORAL: moist mucosa, still with trismus and unable to open her mouth enough for me to see the buccal mucosa, there is less swelling in the submandibular area on the left and the tissue is softer. She has pain with palpation of the left TMJ NECK: No JVD, supple, trachea midline, The drains have been removed LUNGS: CTA after cough and a few deep breaths, symmetric chest expansion, + cough - able to clear secretions. discussed smoking cessation again with her HEART: RRR, Normal S1 and S2, no rub, no gallop, no murmur ABDOMEN: soft, NT, ND, BS present, no guarding with palpation EXTREMITIES: no edema, no cyanosis, no calf tenderness SKIN: No rashes, no breakdown NEUROLOGIC: no focal neurologic deficits PSYCH: appropriate, normal affect, pleasant - Physical Exam Vital Signs Temp Pulse Resp BP Pulse Ox 98.6 F 76 18 152/69 H 98 07/11/18 02:40 07/11/18 02:40 07/11/18 02:40 07/11/18 02:40 07/11/18 02:40 Oxygen Flow Rate (L/min) 2 Oxygen Delivery Method Room Air Weight: 205 lb 15.999 oz Body Mass Index (BMI) 32.2 Intake and Output for Last 24 Hours 07/09/18 07/10/18 07/11/18 23:59 23:59 23:59 Intake Total 1500 / 1500 4793 / 4793 1882 / 1882 Output Total 2800 / 2800 1800 / 1800 Balance 1500 / 1500 1992 82 / 82 Microbiology Past 72 Hours 07/09/18 17:15 Gram Stain - Final Abs - Aerobic & Anaerobic Swabs Wound Culture - Preliminary Mixed Gram Positive Organisms Laboratory Tests Past 24 Hrs 07/10/18 07/11/18 06:17 05:30 WBC 12.2 H RBC 2.99 L Hgb 8.8 L Hct 27.3 L MCV 91.3 MCH 29.4 MCHC 32.2 RDW 13.0 RDW Differential 42.3 Plt Count 395 MPV 8.6 Immature Gran % (Auto) 1.200 H Neut % (Auto) 74.5 H Lymph % (Auto) 15.3 L [place] % (Auto) 7.7 Eos % (Auto) 1.1 Baso % (Auto) 0.2 Absolute Neuts (auto) 9.1 H Absolute Lymphs (auto) 1.86 Total Counted Not Reportable Sodium 138 Potassium 4.6 Chloride 107 Carbon Dioxide 26.0 Anion Gap 5 BUN 14 Creatinine 0.95 Estim Creat Clear Calc 66.60 Est GFR (MDRD) Af Amer 79 Est GFR (MDRD) Non-Af 65 BUN/Creatinine Ratio 14.8 Glucose 105 Calcium 8.9 Total Bilirubin 0.30 AST 21 ALT 20 Alkaline Phosphatase 75 Total Protein 7.7 Albumin 2.8 L Globulin 4.9 H Albumin/Globulin Ratio 0.6 L Triglycerides 213 H Cholesterol 188 LDL Cholesterol 121 VLDL Cholesterol 43 H HDL Cholesterol 24 L POC Glucose 07/11/18 07/10/18 07/10/18 06:31 21:44 16:05 POC Glucose 180 H 194 H 139 H 07/10/18 11:25 POC Glucose 248 H Medical Necessity - Tobacco Use Smoking Status: Current every day smoker Tobacco Use: Cigarettes Assessment/Plan All Active Problems Dental abscess (Acute) Impressions 1. Dental abscess left mandible with trismus unresponsive to outpatient antibiotics for the past 2 weeks. taken to surgery on 07/09/18. cultures were sent from surgery. 2. Hypertension 3. Hyperlipidemia-not adequately controlled 4. Coronary artery disease 5. History of PTCA in 2017 at [facility] with 2 stents placed-patient does not recall which artery. 6. Obesity 7. GERD 8. Elevated Creat - Possible stage III chronic renal failure however we only have limited lab available on this patient and this may be acute 9. Diabetes mellitus type 2 with hemoglobin A1c of 7.1 10. Hypoglycemia-likely due to prolonged effect of metformin and Amaryl. No gram negatives in the Gram stain so we will continue clindamycin. White blood cell count has improved with clindamycin and surgery. Await the final report on the culture taken at the time of surgery Start Motrin 400 mg p.o. every 8 hours for pain at the TMJ joint Discontinue IV fluids Restart oral hypoglycemic agents Recheck lab in the a.m. Probable discharge tomorrow Code Visit Inpatient E&M: 63748 Subs Hosp L2
[2018-07-11 08:35] VITALS: BP 139/67; PULSE 74; RESP 18; TEMP 36.9; O2SAT 98
[2018-07-11] MEDS: Losartan Potassium 50 MG Tablet PO (09:52)
[2018-07-11] MEDS: Dext 5%-0.45% NS 1,000 ML 100 ML IV (09:52)
[2018-07-11] MEDS: TICAGRELOR 90 MG TABLET PO (09:53)
[2018-07-11 11:30] LABS: Bedside Glucose 232 mg/dL (70-110)
[2018-07-11] MEDS: Ibuprofen 100 MG/5 ML UDC 400 MG PO (12:29)
[2018-07-11 16:00] VITALS: BP 144/70; PULSE 79; RESP 18; TEMP 37.2; O2SAT 98
[2018-07-11 16:36] LABS: Bedside Glucose 179 mg/dL (70-110)
--- NOTE | 2018-07-11 16:46 | PCM.DC ---
- Discharge Diagnoses Current Active Problems: Current Active and Chronic Problems Dental abscess (Acute) 52 yo female admitted for IV antibiotics and fluids in preparation for I and D of left neck abscess. Type 2 diabetes mellitus (Chronic) Obesity (Chronic) Hypertension (Chronic) Hyperlipidemia (Chronic) Normochromic normocytic anemia (Chronic) Elevated serum creatinine (Chronic) stage III CRF History of PTCA (Chronic) 2 stents done at [facility] in 2017 CAD (coronary artery disease) (Chronic) You will use the following diet at home:: Calorie/Carbohydrate Controlled (specify 1200, 1400, etc), Cardiac Your food should be the consistency of: Regular Your liquids should be the consistency of: Regular/Thin Discharge Activity: May not drive while taking narcotic pain medications. Call your doctor if your incision/area has: Continuous Slow Oozing, Sudden Increased Bleeding, Increased Pain/ Swelling, Increased Redness, Foul Smelling Discharge, Swelling at the incision site Call your doctor if you observe: Fever of 101 or Higher, Shortness of breath, Chest pain, - - Call your PCP if severe diarrhea ( > 5 stools a day), painful sores in the mouth, painful swallowing, rash or itching. Taking a probiotic such as Lactobacillus or Kefir can help with loose stools while taking antibiotics. Additional Instructions: 1. I have given you a prescription for Lipitor......it is a better statin than pravastatin. the LDL, or bad cholesterol, in a person with known heart disease should be 70 or less. Your LDL is 120. 2. You can take the Clindamycin you already have a t home......you will need to take it for at least 7 more days. If you do not have enough to last that long then Dr. Reyes can give you a prescription at your appt tomorrow. 3. If you need help quitting smoking call the hospital and ask to be connected to the smoking cessation operating systems programmer. Stents do not stay open forever. The risk factors for heart disease are high blood pressure,. diabetes, high cholesterol, smoking, being a woman over the age of 55 and family hx of heart disease....the more risk factors you have the higher the risk. Try your best to stop smoking .....it will prolong your life. Pending Tests on Discharge: final wound culture Allergies/Adverse Reactions: Allergies No Known Allergies Allergy (Verified 07/09/18 12:38) Medications to take at Discharge Sitagliptin Phosphate [Januvia] 100 mg PO DAILY #14 tablet 11/06/17 Clindamycin HCl [Cleocin] 300 mg PO Q6H #40 capsule 07/02/18 Losartan Potassium [Cozaar] 50 mg PO DAILY 07/02/18 Metformin HCl [Glucophage] 1,000 mg PO BIDCM 07/02/18 Omeprazole [Prilosec] 20 mg PO DAILY 07/02/18 Ticagrelor [Brilinta] 90 mg PO DAILY 07/02/18 Glimepiride [Amaryl] 4 mg PO DAILY 07/09/18 Metronidazole 500 mg PO TID 07/09/18 Atorvastatin Calcium [Lipitor] 40 mg PO QHS #30 tab 07/11/18 Oxycodone HCl/Acetaminophen [Percocet 10-325 mg Tablet] 1 tab PO Q6H PRN PRN 7 Days #20 tab 07/11/18 The following prescriptions were given: Oxycodone HCl/Acetaminophen [Percocet 10-325 mg Tablet] 1 tab PO Q6H PRN PRN 7 Days #20 tab PRN Reason: Pain Atorvastatin Calcium [Lipitor] 40 mg PO QHS #30 tab Primary Care Physician: Ted Denis MD [Primary Care Provider] - Please follow up with your Primary Care Physician in: 1 week Test Results: Test results from this visit will be discussed in further detail at your follow-up appointment, if applicable. Please Follow Up With: Estuardo Reyes DDS When: tomorrow....call the office first thing in the morning Proposed Discharge Date: 07/11/18
--- NOTE | 2018-07-11 16:57 | DS.PCM_ITS ---
Discharge Date and Diagnosis - Problem List Patient Problems: Active and Suspected Problems Hypoglycemia (Acute) GERD (gastroesophageal reflux disease) (Acute) Date of Admission: 07/09/18 Date of Discharge: 07/11/18 - Primary Discharge Diagnosis Active and Suspected Problems Dental abscess (Acute)Left mandible Elevated serum creatinine (Acute) Hypoglycemia (Acute) - Secondary Discharge Diagnosis Chronic Problems Tobacco dependence due to cigarettes (Chronic) Type 2 diabetes mellitus (Chronic) Obesity (Chronic) Hypertension (Chronic) Hyperlipidemia (Chronic) Normochromic normocytic anemia (Chronic) History of PTCA (Chronic) 2 stents done at [place] in 2017 CAD (coronary artery disease) (Chronic) Hospital Course and Treatment Imaging Results: Clinical Impression(s) from Imaging Studies Chest X-Ray 07/09/18 15:30 IMPRESSION: Normal x-ray examination of the chest. Electronically Signed: Mlechor Slade, at 16:03 EDT Tel , Service support , Laboratory Results - last 24 hr 07/10/18 07/11/18 07/11/18 21:44 05:30 06:31 WBC 12.2 H RBC 2.99 L Hgb 8.8 L Hct 27.3 L MCV 91.3 MCH 29.4 MCHC 32.2 RDW 13.0 RDW Differential 42.3 Plt Count 395 MPV 8.6 Immature Gran % (Auto) 1.200 H Neut % (Auto) 74.5 H Lymph % (Auto) 15.3 L [place] % (Auto) 7.7 Eos % (Auto) 1.1 Baso % (Auto) 0.2 Absolute Neuts (auto) 9.1 H Absolute Lymphs (auto) 1.86 Total Counted Not Reportable POC Glucose 194 H 180 H 07/11/18 07/11/18 11:26 16:31 WBC RBC Hgb Hct MCV MCH MCHC RDW RDW Differential Plt Count MPV Immature Gran % (Auto) Neut % (Auto) Lymph % (Auto) [place] % (Auto) Eos % (Auto) Baso % (Auto) Absolute Neuts (auto) Absolute Lymphs (auto) Total Counted POC Glucose 232 H 179 H Microbiology 07/09/18 17:15 Abs - Aerobic & Anaerobic Swabs Gram Stain - Final 04/12/19 17:15 Abs - Aerobic & Anaerobic Swabs Wound Culture - Preliminary Mixed Gram Positive Organisms Dr. Estuardo Reyes-oral surgery Operations: - - Incision and drainage of left submandibular, sublingual and house superintendent spaces and extraction of teeth 19 and 20 on 07/09/[address] Reyes. Procedures: None Summary of Care Provided: The patient is a 52 year old F with a PMH of HTN, HLD, tobacco dependence, CAD, GERD, cholelithiasis and PTCA with 2 stents at [facility] in 2017 who was sent to the ED at [facility] by Dr. Reyes for a dental abscess involving the L mandible that has not improved with OP antibiotics including Flagyl and Clindamycin over the preceding 2 weeks. She had has trismus and could only open her mouth enough to protrude her tongue. I was unable to visualize the buccal mucosa or the posterior pharnyx. She denied drooling and was able to manage her saliva. The left submandibular gland was very indurated and painful to palpate. Vital signs at presentation to the emergency department were temperature 98.8, pulse rate 76, blood pressure 137/86, respiratory rate 16 and she was 97% saturated on room air. White blood cell count was elevated at 15.3 with 83% neutrophils. Hemoglobin was 9.8 with normochromic normocytic indices and a normal RDW. Platelets were normal at 405,000. BMP was remarkable for an elevated BUN at 21 with a creatinine of 1.12. The GFR was 54 which is consistent with stage III chronic renal failure. We had no recent baseline. Hemoglobin A1c was 7.1. No XRAYS were done in the ED. She was admitted to the hospital and made NPO for surgery that night by Dr. Reyes. She was started on intravenous clindamycin in the emergency department and this was continued at admission. She was taken to surgery by Dr. Reyes on the evening of 07/09/2018 for incision and drainage of the left submandibular, sublingual and house superintendent spaces and extraction of teeth 19 and 20. The drains were pulled on the evening of 07/10/18. On the morning of 07/11 the swelling was decreasing and her pain was adequately controlled. She was afebrile. The white blood cell count was 12.2, down from 16.7 the preceding day. Blood sugars were adequately controlled. She c/o Left roman catholic pain and left TMJ pain. She still had trismus but was able to eat soft foods and shakes. Dr. Reyes phoned and and said the patient could be discharged and he would see her in the office on Thursday. She was given a prescription for Percocet for pain control. She will resume Clindamycin and Flagyl she has at home. Smoking cessation counselling was given in the hospital. Her lipid panel was checked and triglycerides were elevated at 213. The total cholesterol is 188 with an LDL of 121 and an HDL that is low at 24. She has been taking pravastatin 40 mg daily and she was given a prescription for atorvastatin 40 mg and instructed to take it nightly. She will need a lipid panel and liver panel done in 6 weeks. She was seen in consultation by the dietitian who recommended [id number] kamran a day and instructed her in a low-fat carb controlled diet. I discussed the results of the lipid panel with her and advised her to change her diet. She was told that if she was interested and needed help to stop smoking that she could call the hospital and ask for the smoking cessation coordinator. GENERAL: alert, oriented X 3, Cooperative, NAD ORAL: moist mucosa, still with trismus and unable to open her mouth enough for me to see the buccal mucosa, there is less swelling in the submandibular area on the left and the tissue is softer. She has pain with palpation of the left TMJ NECK: No JVD, supple, trachea midline, The drains have been removed LUNGS: CTA after cough and a few deep breaths, symmetric chest expansion, + cough - able to clear secretions. discussed smoking cessation again with her HEART: RRR, Normal S1 and S2, no rub, no gallop, no murmur ABDOMEN: soft, NT, ND, BS present, no guarding with palpation EXTREMITIES: no edema, no cyanosis, no calf tenderness SKIN: No rashes, no breakdown NEUROLOGIC: no focal neurologic deficits PSYCH: appropriate, normal affect, pleasant This note was generated with [employer] dictation software. It may contain incorrect words, spelling, and punctuation that were not noted in checking the note before signing. Patient Problems: Active and Suspected Problems Hypoglycemia (Acute) GERD (gastroesophageal reflux disease) (Acute) - Physical Exam Vital Signs Temp Pulse Resp BP Pulse Ox 98.9 F 79 18 144/70 H 98 07/11/18 16:00 04/14/19 16:00 07/11/18 16:00 07/11/18 16:00 07/11/18 16:00 Oxygen Flow Rate (L/min) 2 Oxygen Delivery Method Room Air Weight: 205 lb 15.999 oz Body Mass Index (BMI) 32.2 Intake and Output for Last 24 Hours 07/09/18 07/10/18 07/11/18 23:59 23:59 23:59 Intake Total 1500 / 1500 4793 / 4793 3282 / 3282 Output Total 2800 / 2800 3000 / 3000 Balance 1500 / 1500 1992 282 / 282 Microbiology Past 72 Hours 07/09/18 17:15 Gram Stain - Final Abs - Aerobic & Anaerobic Swabs Wound Culture - Preliminary Mixed Gram Positive Organisms Laboratory Tests Past 24 Hrs 07/11/18 05:30 WBC 12.2 H RBC 2.99 L Hgb 8.8 L Hct 27.3 L MCV 91.3 MCH 29.4 MCHC 32.2 RDW 13.0 RDW Differential 42.3 Plt Count 395 MPV 8.6 Immature Gran % (Auto) 1.200 H Neut % (Auto) 74.5 H Lymph % (Auto) 15.3 L [place] % (Auto) 7.7 Eos % (Auto) 1.1 Baso % (Auto) 0.2 Absolute Neuts (auto) 9.1 H Absolute Lymphs (auto) 1.86 Total Counted Not Reportable POC Glucose 07/11/18 07/11/18 07/11/18 16:31 11:26 06:31 POC Glucose 179 H 232 H 180 H 07/10/18 21:44 POC Glucose 194 H Discharge Activity: May not drive while taking narcotic pain medications. Call your doctor if your incision/area has: Continuous Slow Oozing, Sudden Increased Bleeding, Increased Pain/ Swelling, Increased Redness, Foul Smelling Discharge, Swelling at the incision site Call your doctor if you observe: Fever of 101 or Higher, Shortness of breath, Chest pain, - - Call your PCP if severe diarrhea ( > 5 stools a day), painful sores in the mouth, painful swallowing, rash or itching. Taking a probiotic such as Lactobacillus or Kefir can help with loose stools while taking antibiotics. Home Medications: Medications to take at Discharge Sitagliptin Phosphate [Januvia] 100 mg PO DAILY #14 tablet 11/06/17 Clindamycin HCl [Cleocin] 300 mg PO Q6H #40 capsule 07/02/18 Losartan Potassium [Cozaar] 50 mg PO DAILY 07/02/18 Metformin HCl [Glucophage] 1,000 mg PO BIDCM 07/02/18 Omeprazole [Prilosec] 20 mg PO DAILY 07/02/18 Ticagrelor [Brilinta] 90 mg PO DAILY 07/02/18 Glimepiride [Amaryl] 4 mg PO DAILY 07/09/18 Metronidazole 500 mg PO TID 07/09/18 Atorvastatin Calcium [Lipitor] 40 mg PO QHS #30 tab 07/11/18 Oxycodone HCl/Acetaminophen [Percocet 10-325 mg Tablet] 1 tab PO Q6H PRN PRN 7 Days #20 tab 07/11/18 Following Prescrptions Were Given to Patient: Oxycodone HCl/Acetaminophen [Percocet 10-325 mg Tablet] 1 tab PO Q6H PRN PRN 7 Days #20 tab PRN Reason: Pain Atorvastatin Calcium [Lipitor] 40 mg PO QHS #30 tab Primary Care Physician: Ted Denis MD [Primary Care Provider] - Please follow up with your Primary Care Physician in: 1 week Please Follow Up With: Estuardo Reyes DDS When: tomorrow....call the office first thing in the morning Disposition: Home Minutes spent on discharge:: 35 Medical Necessity - Tobacco Use Smoking Status: Current every day smoker Tobacco Use: Cigarettes Meaningful Use Info Meaningful Use Diagnoses (Choose all that apply): None applicable Code Visit Inpatient E&M: 93253 Disch Hosp
[2018-07-11 17:29] VITALS: BP 144/70; PULSE 79; RESP 16; TEMP 37.2; O2SAT 98
== END 2018-07-11 17:20 | disposition home or self-care (01) ==
LOC: ED 09:56 → MS2 11:51
PROVIDERS: Admitting Provider Internal Medicine; Emergency Provider Emergency Medicine; Referring Provider Dentist Oral and Maxillofacial Surgery; Visit Provider Internal Medicine
PROC: (CPT 41009; principal; 2018-07-09 16:20)
DX: K04.7 Periapical abscess without sinus (principal); R25.2 Cramp and spasm; K02.9 Dental caries, unspecified; E66.9 Obesity, unspecified; E78.5 Hyperlipidemia, unspecified; K21.9 Gastro-esophageal reflux disease without esophagitis; I25.10 Atherosclerotic heart disease of native coronary artery without angina pectoris; F17.210 Nicotine dependence, cigarettes, uncomplicated; Z79.899 Other long term (current) drug therapy; Z68.32 Body mass index [BMI] 32.0-32.9, adult; Z71.3 Dietary counseling and surveillance; Z95.5 Presence of coronary angioplasty implant and graft; Z79.84 Long term (current) use of oral hypoglycemic drugs; I10 Essential (primary) hypertension; E11.649 Type 2 diabetes mellitus with hypoglycemia without coma
CPT/HCPCS: 41009; 41899; 36415; 71045; 80048; 80053; 80061; 82962; 83036; 85025; 87070; 87075; 87205; 93005; 96361; 96365; 96366; 96372; 96375; 96376; 97802; 99218; 99282; 99406; J7030; A4216; G0378; J2405; J7799

== ENCOUNTER 2018-07-29 17:29 | Inpatient (IN) | payer OTHER, SELFPAY ==
[2018-07-09 15:16] VITALS: BMI 32.2
[2018-07-29 17:30] VITALS: BP 151/63; PULSE 101; RESP 16; TEMP 36.8; O2SAT 98; BMI 33.2
[2018-07-29] MEDS: 0.9% Normal Saline 1,000 ML 1000 ML IV (18:20)
[2018-07-29 18:34] LABS: Absolute Lymphocyte Count 1.82 X10^3/ul (0.83-4.51); Absolute Neutrophil Count 7.1 X10^3/uL (2.0-7.7); Basophil# 0.02 X10^3/uL; Basophil% 0.2 % (0-1); Eosinophil# 0.17 X10^3/uL; Eosinophils% 1.7 % (0-5); Hemoglobin 9.2 g/dl (12.0-15.0); Lymphocyte # 1.82 X10^3/ul (4.0); Lymphocyte % 18.2 % (19-41); Mean Corp Hgb Conc 32.9 g/gl (32-36); Mean Corpuscular Hgb 29.9 pg (27.0-32.0); Mean Corpuscular Volume 90.9 fL (81-99); Mean Platelet Vol. 9.6 fl (6.2-12.0); Monocyte# 0.92 X10^3/uL; Monocyte% 9.2 % (0-10); Neutrophil # 7.05 X10^3/uL (2.7-7.7); Neutrophil % 70.3 % (47-70); POSITIVE COUNT NO; POSITIVE DIFFERENTIAL NO; POSITIVE MORPHOLOGY NO; Platelet Count 250 K/mm3 (150-450); RBC Distribution Width CV 13.8 % (11.6-14.6); RBC Distribution Width SD 44.3 fl (35.1-43.9); Red Blood Count 3.08 M/mm3 (4.2-5.4)
[2018-07-29 18:41] LABS: International Normalized Ratio 1.1; Prothrombin Time (Protime)PT. 14.2 SECONDS (11.7-14.9)
[2018-07-29 18:42] LABS: Partial Thromboplast Time 31.8 Seconds (24.1-36.2)
[2018-07-29 18:56] VITALS: BP 160/75; PULSE 91; RESP 18; TEMP 37.1; O2SAT 98
--- NOTE | 2018-07-29 18:58 | CT_ITS ---
STUDY: CT SOFT TISSUE NECK WITH CONTRAST REASON FOR EXAM: Female, 52 years old. Dental abscess and facial pain RADIATION DOSAGE (If Supplied By Facility): CTDIvol = ( 22.13 ) mGy, DLP = ( 757.37 ) mGycm TECHNIQUE: The patient was scanned in a multi-detector CT scanner. High resolution transaxial imaging was performed following intravenous administration of 100mL IV Isovue 300. Sagittal and coronal images were reconstructed. Individualized dose optimization techniques were used for this CT. COMPARISON: None. FINDINGS: There is diffuse soft tissue swelling and phlegmonous changes in the soft tissues lateral to the left mandibular body and ramus with associated thickening of the fascia and cellulitis in the subcutaneous fat.. There is enlargement and phlegmonous change noted within the left masseter muscle. Arising in the left web retailer space lateral to the maxillary sinus and medial to the zygomatic arch there is a thick-walled enhancing mass measuring approximately 1.8 x 2.2 x 4.5 cm extending superiorly and laterally lateral to the left temporal and frontal bone consistent with acute abscess. There is dental disease noted in the left mandible. There is no definitive evidence for acute osteomyelitis. Normal bilateral parotid glands. Normal bilateral parapharyngeal spaces. Normal bilateral carotid spaces. Normal bilateral sublingual and submandibular glands and spaces. Normal visualized nasopharynx. Normal retropharyngeal space. Normal perivertebral space. Normal visualized bilateral faucial tonsils. The visualized tongue, tongue base and oropharynx are normal. The visualized cervical lymph nodes (levels I-) are within normal size limits, and maintain normal morphology. There is no demonstrated solid or cystic mass lesion. There is no abnormal contrast enhancement. Normal epiglottis, bilateral vallecula and hypopharynx. The pre-epiglottic and paraglottic adipose spaces are normal. Normal visualized bilateral piriform sinuses, aryepiglottic folds, vocal cords, and arytenoid-cricoid articulations. Normal subglottic trachea. Complex partially calcified nodule in the right lobe of the thyroid which may be further assessed with ultrasound. Normal visualized pulmonary apices. Small mucous retention cyst in left maxillary sinus. Cervical spine demonstrates moderate spondylosis. CT/Soft Tissue Neck WITH Contrast IMPRESSION: Left facial soft tissue swelling with phlegmonous changes in the masseter and abscess arising in the left web retailer space extending superiorly and laterally to the left temporal and frontal bones. No definitive evidence for acute osteomyelitis of the mandible although there are changes consistent with dental disease.. Incidental finding of complex nodule within the right lobe of the thyroid which may be further assessed with ultrasound Electronically Signed: Adrián Rangel MD at 20:35 EDT , Service support ,
--- NOTE | 2018-07-29 18:58 | CT_ITS ---
We are attempting to reach Carl Csatañeda MD to discuss findings. An addendum with communication details will be sent when the communication is complete. STUDY: CT BRAIN WITH AND WITHOUT CONTRAST REASON FOR EXAM: Female, 52 years old. Left facial swelling and pain RADIATION DOSAGE (If Supplied By Facility): CTDIvol = ( 44.99 ) mGy, DLP = ( 1648.46 ) mGycm TECHNIQUE: Transaxial CT imaging of the brain was performed pre and post contrast administration. The examination was performed with intravenous administration of 100mL IV Isovue 300. Individualized dose optimization techniques were used for this CT. COMPARISON: None. FINDINGS: There is a large thick-walled rim-enhancing fluid collection in the left grounds cleaner space extending into the soft tissues of the scalp measuring 1.55 x 4 x 1.5 cm which may be consistent with abscess . The inferior most aspect of the lesion is not imaged Normal calvarium. Normal size ventricles and extra-axial spaces for the patient's age. Normal white matter tracts of the cerebral hemispheres. Normal basal ganglia and thalami. Normal brainstem. Normal cerebellum. There is no intracranial hemorrhage. There are no findings of an acute ischemic infarction. Normal visualized paranasal sinuses. CT/Brain/Head W/WO Contrast IMPRESSION: Large thick-walled rim-enhancing mass which appears to be arising within the left grounds cleaner space extending into the soft tissues of the scalp lateral to the left temporal and frontal bones which may be consistent with abscess Electronically Signed: Adrián Rangel MD at 20:16 EDT , Service support ,
[2018-07-29 18:59] LABS: ALB/GLOB Ratio 0.8 RATIO (0.9-2.4); AST(SGOT) 9 U/L (15-37); Alanine Aminotransfer ALT/SGPT 14 U/L (13-56); Albumin, Serum 3.2 g/dL (3.2-5.0); Alkaline Phosphatase 70 U/L (45-117); Anion Gap 6 (5-15); BUN 20 mg/dL (7-18); BUN/Creat Ratio 20.8 RATIO (10-20); Calcium,Total 8.6 mg/dL (8.5-10.1); Chloride 109 mmol/L (98-107); Creatinine, Serum 0.96 mg/dL (0.55-1.02); EST Glomerular Filtration Rate 64 mL/min (>60); Est Glom Filt Rate - Afr Amer 78 mL/min (>60); Globulin 4.2 g/dL (2.2-4.2); Glucose 232 mg/dL (74-106); Protein, Total 7.4 g/dL (6.4-8.2); Sodium Level 141 mmol/L (136-145)
[2018-07-29 19:00] VITALS: BP 151/74; PULSE 93; RESP 15; TEMP 37.5; O2SAT 99
[2018-07-29 19:00] LABS: Lactic Acid 1.8 mmol/L (0.4-2.0)
[2018-07-29] MEDS: Ondansetron 4 MG/2 ML Vial IV (19:04)
[2018-07-29] MEDS: Morphine 4 MG/ML Syringe IV ×2 (19:04→21:34)
[2018-07-29 20:04] VITALS: BP 152/97; PULSE 91; RESP 17; TEMP 37.6; O2SAT 96; O2SAT 98
--- NOTE | 2018-07-29 21:00 | PCM.HP.STD ---
Problem List (1) GERD (gastroesophageal reflux disease) Status: Acute (2) Tobacco dependence due to cigarettes Status: Chronic (3) Dental abscess Status: Acute Comment: 52 yo female admitted for IV antibiotics and fluids in preparation for I and D of left neck abscess. (4) Type 2 diabetes mellitus Status: Chronic (5) Obesity Status: Chronic Qualifiers: Obesity type: due to excess calories Body mass index: BMI 32.0-32.9 (6) Hypertension Status: Chronic Qualifiers: Hypertension type: essential hypertension Qualified Code(s): I10 - Essential (primary) hypertension (7) Hyperlipidemia Status: Chronic History of Present Illness Date of Admission: 07/29/18 Chief Complaint: left face swelling and pain The patient is a 52 year old F with a significant history of hypertension; CAD status post stent; diabetes mellitus; and hyperlipidemia who presented to the emergency department with a one-month history of persistent pain and swelling on the left side of her face attributed to infected teeth. Patient reports drainage from her teeth. She cannot open her mouth fully. And she chews from her right side. In the past patient followed up with Dr. Estuardo Reyes, orofacial surgeon and had some teeth pulled and a drain placed. She had previously been on a course of antibiotics. On the day of presentation she went to see Dr. Melchor Carrion, infectious disease specialist who recommended patient come to the emergency department. Emergency department doctor reported discussing the case with Dr. Melchor Carrion. Emergency department doctor, Dr. Melchor Carrion wanted an MRI to rule out osteomyelitis. However because an MRI was not available a CT with contrast was done. The CT did not show any osteomyelitis. However it showed facial soft tissue swelling; phlegmon and abscess in the left title i paraprofessional space extending superiorly and laterally to the left temporal and frontal bones. Per emergency department doctor, Dr. Carrion recommended vancomycin and Zosyn to be initiated. Past Medical History Past Medical History (Chronic Problems): Chronic Problems Tobacco dependence due to cigarettes (Chronic) Type 2 diabetes mellitus (Chronic) Obesity (Chronic) Hypertension (Chronic) Hyperlipidemia (Chronic) Normochromic normocytic anemia (Chronic) History of PTCA (Chronic) 2 stents done at [place] in 2017 CAD (coronary artery disease) (Chronic) Allergies No Known Allergies Allergy (Verified 07/29/18 17:33) Home Medications: Ambulatory Orders Medication Instructions Recorded Losartan Potassium [Cozaar] 50 mg PO DAILY 07/02/18 Metformin HCl [Glucophage] 1,000 mg PO BIDCM 07/02/18 Omeprazole [Prilosec] 20 mg PO DAILY 07/02/18 Ticagrelor [Brilinta] 90 mg PO DAILY 07/02/18 Atorvastatin Calcium [Lipitor] 40 mg PO DAILY 07/29/18 Glimepiride 4 mg PO DAILY 07/29/18 Sitagliptin Phosphate [Januvia] 100 mg PO DAILY 07/29/18 Surgical History: hysterectomy - Hysterectomy with bilateral oophorectomy and removal of a 25 pound ovarian mass-benign, - - PTCA with 2 stents done at [place] in 2017 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 Maternal History Items: COPD, - - Mother of COPD Review of Systems Constitutional: Denies: Chills, Fever, Weight Change HEENT: Denies: Head Aches, Sinus Congestion, Sinus Drainage Cardiovascular: Denies: Chest Pain, Palpitations Respiratory: Denies: Cough, Shortness of breath at rest, Sputum production Gastrointestinal: Denies: Abdominal Pain, Nausea, Vomiting Genitourinary: Denies: Dysuria Musculoskeletal: Denies: Joint Pain, Joint Tenderness Skin: Denies: Rash, Wounds Neurological: Denies: Numbness, Tingling, Focal weakness Psychiatric: Denies: Anxiety, Depression, Homicidal Ideations, Suicidal Ideations Hematologic/ Lymphatic: Denies: Easy Bruising, Easy Bleeding VTE Information - Inpt Only VTE Present on Admission: No VTE Mechan Device Prophylaxis: SCD's VTE Pharm Prophylaxis ordered?: No - Physical Exam General: Alert, Oriented x3, Cooperative HEENT: Atraumatic, PERRLA, EOMI, Normocephalic, - - Tender left jaw Oral: - - Pool of yellowish pus at left side of jaw. Left side premolar/molar with blackened region. Neck: Supple, No JVD, Negative Carotid Bruits Lungs: Clear to auscultation, Normal air movement Cardiovascular: Regular rate, No murmurs Abdomen: Bowel Sounds Present, Soft, Non Tender Extremities: No edema, Capillary Refill Less than 3 Seconds Skin: No breakdown, - Musculoskeletal: No Tenderness to Palpation of Joints or Extremities Neurological: Neuro grossly intact Psych/Mental Status: Normal Affect, Appropriate Vital Signs Temp Pulse Resp BP Pulse Ox 99.6 F H 91 17 152/97 H 98 07/29/18 20:04 07/29/18 20:04 07/29/18 20:04 07/29/18 20:04 07/29/18 20:04 Oxygen Delivery Method Room Air Weight: 96.2 kg Body Mass Index (BMI) 33.2 Laboratory Tests Past 24 Hrs 07/29/18 07/29/18 07/29/18 18:15 18:15 18:15 WBC 10.0 RBC 3.08 L Hgb 9.2 L Hct 28.0 L MCV 90.9 MCH 29.9 MCHC 32.9 RDW 13.8 RDW Differential 44.3 H Plt Count 250 MPV 9.6 Immature Gran % (Auto) 0.400 Neut % (Auto) 70.3 H Lymph % (Auto) 18.2 L [place] % (Auto) 9.2 Eos % (Auto) 1.7 Baso % (Auto) 0.2 Absolute Neuts (auto) 7.1 Absolute Lymphs (auto) 1.82 Total Counted Not Reportable PT 14.2 INR 1.1 APTT 31.8 Sodium 141 Potassium 4.0 Chloride 109 H Carbon Dioxide 26.0 Anion Gap 6 BUN 20 H Creatinine 0.96 Estim Creat Clear Calc 65.90 Est GFR (MDRD) Af Amer 78 Est GFR (MDRD) Non-Af 64 BUN/Creatinine Ratio 20.8 H Glucose 232 H Lactic Acid Calcium 8.6 Total Bilirubin 0.20 AST 9 L ALT 14 Alkaline Phosphatase 70 Total Protein 7.4 Albumin 3.2 Globulin 4.2 Albumin/Globulin Ratio 0.8 L 07/29/18 18:15 WBC RBC Hgb Hct MCV MCH MCHC RDW RDW Differential Plt Count MPV Immature Gran % (Auto) Neut % (Auto) Lymph % (Auto) [place] % (Auto) Eos % (Auto) Baso % (Auto) Absolute Neuts (auto) Absolute Lymphs (auto) Total Counted PT INR APTT Sodium Potassium Chloride Carbon Dioxide Anion Gap BUN Creatinine Estim Creat Clear Calc Est GFR (MDRD) Af Amer Est GFR (MDRD) Non-Af BUN/Creatinine Ratio Glucose Lactic Acid 1.8 Calcium Total Bilirubin AST ALT Alkaline Phosphatase Total Protein Albumin Globulin Albumin/Globulin Ratio Assessment/Plan All Active Problems Hypoglycemia (Acute) GERD (gastroesophageal reflux disease) (Acute) Dental abscess (Acute) Elevated serum creatinine (Acute) The patient is a 52 year old F with a significant history of hypertension; CAD status post stent; diabetes mellitus; and hyperlipidemia who presented to the emergency department with a one-month history of persistent pain and swelling of the left side of the face who was previously treated with teeth extraction; antibiotics and with placement of drainage tubes was found to have radiographic evidence of left facial soft tissue swelling; phlegmon and abscess in the left title i paraprofessional space extending superiorly and laterally to the left temporal and frontal bones. Dental abscess Vancomycin and Zosyn ordered We will consult orofacial surgeon and infectious disease Patient is on Brilinta because of history of CAD with stents. She reported that her stent was placed 3 years ago. We will hold her Brilinta at this time in anticipation of dental intervention. Oxycodone as needed for moderate pain. Morphine IV as needed for severe pain. Trend CBC and BMP Culture of dental drainage was obtained at the emergency department; follow Diabetes mellitus Presentation her blood glucose was still within goal Linagliptin continued Glimepiride continued Metformin held since it is too early in her admission and patient received IV contrast. Of note her GFR is normal. Accu-Chek q. before meals at bedtime; and 2 AM with correction scale insulin ordered. Hypertension On presentation her blood pressure was not within goal Cozaar continued Trend blood pressure and adjust blood pressure medication. Tobacco abuse Counselled. Patient declined nicotine patch at this time. Reports that she may request a nicotine patch if needed be. Hyperlipidemia Lipitor continued GERD Prilosec continued DVT prophylaxis SCDs ordered. Code Visit Inpatient E&M: 60729 Init Hosp L3
[2018-07-29 21:23] VITALS: BP 147/78; PULSE 88; RESP 16; TEMP 37.6; O2SAT 99
--- NOTE | 2018-07-29 21:26 | ED.DCSUM_ITS ---
- ER Visit Summary Date of Service: 07/29/18 Chief Complaint: Dental abscess History of Present Illness: The patient is a 52 F with a history of dental abscess. She reports left-sided facial pain and swelling. She was admitted a couple weeks ago for the same. She had I&D as well as a dental extraction. She had a drain placed. She followed up with infectious disease. Her symptoms are worsening. She has trismus. She was advised by her infectious doctor to come to the ED for MRI and cultures. Physical Examination: Afebrile and vital signs unremarkable. Patient has trismus and left side facial swelling and tenderness. Skin intact. She does have gingival swelling and drainage. Neck nontender with good range of motion. No lymphadenopathy. Test Results: Hemoglobin 9.2. Coags normal. Lactate normal. Cultures including wound and blood cultures are pending. CT showed abscess in the left patternmaker wood space. No sign of osteo-. She does have a thyroid nodule. Emergency Department Course and Treatment: Patient was discussed with Dr. Carrion. He advised MRI. This was not available at this time and so a CT was done. He advised cultures and starting vancomycin and Zosyn. I spoke with her oral surgeon who will follow in the hospital. I spoke with the hospitalist will admit for further care. Treatment Plan: As above Disposition: Admission Impression: 1. Dental abscess 2. Thyroid nodule This note was generated with [employer] dictation software. It may contain incorrect words, spelling, and punctuation that were not noted in review of the chart prior to signing ED Disposition - Plan for ED Patient: Referrals: Ted Denis MD [Primary Care Provider] -
[2018-07-29 22:37] VITALS: BMI 32.8
[2018-07-29 22:40] VITALS: BP 149/71; PULSE 100; RESP 16; TEMP 37.1; O2SAT 94
--- NOTE | 2018-07-30 01:09 | PCM.RX.CS ---
Consult Pharmacy has been consulted to manage selected antiobiotic: Vancomycin Type of Consult: New start Suspected Infection: Skin/Soft tissue Prior Doses of Antibiotics Received/Current Regimen: Medications Vancomycin HCl 1,250 mg/ (Sodium Chloride) 275 mls @ 167 mls/hr IV Q12H COREY Discontinued Medications Vancomycin HCl 2,000 mg/ (Sodium Chloride) 540 mls @ 250 mls/hr IV X1 ONE Stop: 07/30/18 01:09 Last Admin: 07/29/18 23:57 Dose: 250 mls/hr Labs: Sodium 141 mmol/L (136-145) 07/29/18 18:15 Potassium 4.0 mmol/L (3.5-5.1) 07/29/18 18:15 Chloride 109 mmol/L (98-107) H 07/29/18 18:15 Carbon Dioxide 26.0 mmol/L (21.0-32.0) 07/29/18 18:15 Anion Gap 6 (5-15) 07/29/18 18:15 BUN 20 mg/dL (7-18) H 07/29/18 18:15 Creatinine 0.96 mg/dL (0.55-1.02) 07/29/18 18:15 Est GFR (MDRD) Af Amer 78 mL/min (>60) 07/29/18 18:15 Est GFR (MDRD) Non-Af 64 mL/min (>60) 07/29/18 18:15 BUN/Creatinine Ratio 20.8 RATIO (10-20) H 07/29/18 18:15 Glucose 232 mg/dL (74-106) H 07/29/18 18:15 Weight used for dosin.2 kg Estimated Creatinine Clearance: 66 Goal Trough: 15-20 mcg/mL Pharmacy Plan for Drug Dosing: Pharmacy Service will continue to monitor and adjust dosing as required. Follow-Up Labs: Trough Vancomycin Labs to be done on [date and time ordered]: 07/31/18 @1135
[2018-07-30] MEDS: oxyCODONE 5 MG Tablet PO ×5 (02:15→20:38)
[2018-07-30 02:26] LABS: Bedside Glucose 110 mg/dL (70-110)
[2018-07-30 04:40] VITALS: BP 148/67; PULSE 98; RESP 16; TEMP 36.7; O2SAT 97
[2018-07-30 05:08] VITALS: O2SAT 94
[2018-07-30] MEDS: Heparin Injection (Vial) 5,000 UNIT/ML VIAL 5000 UNIT SC ×3 (06:24→22:42)
[2018-07-30 06:26] LABS: Absolute Lymphocyte Count 1.68 X10^3/ul (0.83-4.51); Absolute Neutrophil Count 6.9 X10^3/uL (2.0-7.7); Basophil# 0.02 X10^3/uL; Basophil% 0.2 % (0-1); Eosinophil# 0.18 X10^3/uL; Eosinophils% 1.8 % (0-5); Hematocrit 27.7 % (37-47); Hemoglobin 8.9 g/dl (12.0-15.0); Lymphocyte # 1.68 X10^3/ul (4.0); Mean Corp Hgb Conc 32.1 g/gl (32-36); Mean Corpuscular Hgb 29.3 pg (27.0-32.0); Mean Corpuscular Volume 91.1 fL (81-99); Mean Platelet Vol. 9.2 fl (6.2-12.0); Monocyte# 1.04 X10^3/uL; Monocyte% 10.5 % (0-10); Neutrophil # 6.94 X10^3/uL (2.7-7.7); Neutrophil % 70.3 % (47-70); Platelet Count 239 K/mm3 (150-450); RBC Distribution Width SD 44.9 fl (35.1-43.9); Red Blood Count 3.04 M/mm3 (4.2-5.4); White Blood Count 9.9 K/mm3 (4.4-11.0)
[2018-07-30 06:33] LABS: Anion Gap 5 (5-15); BUN 14 mg/dL (7-18); BUN/Creat Ratio 18.1 RATIO (10-20); Calcium,Total 8.7 mg/dL (8.5-10.1); Chloride 110 mmol/L (98-107); Creatinine, Serum 0.78 mg/dL (0.55-1.02); EST Glomerular Filtration Rate 82 mL/min (>60); Est Glom Filt Rate - Afr Amer 100 mL/min (>60); Estimated Creatinine Clearance 81.11 ml/min; Glucose 94 mg/dL (74-106); Potassium 4.3 mmol/L (3.5-5.1); Sodium Level 141 mmol/L (136-145)
[2018-07-30 06:35] VITALS: O2SAT 95
[2018-07-30 06:36] LABS: Bedside Glucose 104 mg/dL (70-110)
[2018-07-30 06:38] LABS: Erythrocyte Sedimentation Rate 47 mm/hr (0-30); POSITIVE COUNT NO; POSITIVE DIFFERENTIAL NO; POSITIVE MORPHOLOGY NO
--- NOTE | 2018-07-30 07:33 | PCM.PN.HOSP ---
Patient Problems: Active and Suspected Problems Osteomyelitis, jaw acute (Acute) Subjective: Patient was seen and examined. Pain is controlled. Denies any fever or chills. Swelling in the left temporal region is improved, still has moderate swelling in the pre-aural region and mandibular region as well as left side of the neck. Oral maxillofacial surgeon consulted. Remains on IV vancomycin and Zosyn. Vitals/I&O's: Vital Signs Temp Pulse Resp BP Pulse Ox 98.0 F 98 16 148/67 H 95 07/30/18 04:40 07/30/18 04:40 07/30/18 04:40 07/30/18 04:40 07/30/18 06:35 Oxygen Delivery Method Room Air Weight: 96.5 kg Body Mass Index (BMI) 32.8 Intake and Output for Last 24 Hours 07/28/18 07/29/18 07/30/18 23:59 23:59 23:59 Intake Total 1107 / 1107 Output Total 500 / 500 Balance 607 / 607 General: Alert, Oriented x3, Cooperative, No apparent distress HEENT: Atraumatic, PERRLA, EOMI, Normocephalic, - - Swelling in the left side of the face and neck Oral: Moist Mucosa Neck: Supple Lungs: Clear to auscultation, Normal air movement Cardiovascular: Regular rate, Regular Rhythm, Normal S1, Normal S2, No murmurs Abdomen: Bowel Sounds Present, Soft, Non Tender, Non-Distended, No Hepato-splenomegaly Extremities: No edema Skin: No rashes, No breakdown Musculoskeletal: No Tenderness to Palpation of Joints or Extremities Lymphatic: No Cervical, Supraclavicular, or Inguinal Adenopathy Neurological: Cranial nerves II-XII grossly intact, Neuro grossly intact Psych/Mental Status: Normal Affect, Appropriate Laboratory Results 07/29/18 18:15: WBC 10.0, RBC 3.08 L, Hgb 9.2 L, Hct 28.0 L, MCV 90.9, MCH 29.9, MCHC 32.9, RDW 13.8, RDW Differential 44.3 H, Plt Count 250, MPV 9.6, Immature Gran % (Auto) 0.400, Neut % (Auto) 70.3 H, Lymph % (Auto) 18.2 L, [place] % (Auto) 9.2, Eos % (Auto) 1.7, Baso % (Auto) 0.2, Absolute Neuts (auto) 7.1, Absolute Lymphs (auto) 1.82, Total Counted Not Reportable 07/29/18 18:15: PT 14.2, INR 1.1, APTT 31.8 07/29/18 18:15: Sodium 141, Potassium 4.0, Chloride 109 H, Carbon Dioxide 26.0, Anion Gap 6, BUN 20 H, Creatinine 0.96, Estim Creat Clear Calc 65.90, Est GFR (MDRD) Af Amer 78, Est GFR (MDRD) Non-Af 64, BUN/Creatinine Ratio 20.8 H, Glucose 232 H, Calcium 8.6, Total Bilirubin 0.20, AST 9 L, ALT 14, Alkaline Phosphatase 70, Total Protein 7.4, Albumin 3.2, Globulin 4.2, Albumin/Globulin Ratio 0.8 L 07/29/18 18:15: Lactic Acid 1.8 07/30/18 02:18: POC Glucose 110 07/30/18 05:58: WBC 9.9, RBC 3.04 L, Hgb 8.9 L, Hct 27.7 L, MCV 91.1, MCH 29.3, MCHC 32.1, RDW 14.0, RDW Differential 44.9 H, Plt Count 239, MPV 9.2, Immature Gran % (Auto) 0.200, Neut % (Auto) 70.3 H, Lymph % (Auto) 17.0 L, [place] % (Auto) 10.5 H, Eos % (Auto) 1.8, Baso % (Auto) 0.2, Absolute Neuts (auto) 6.9, Absolute Lymphs (auto) 1.68, Total Counted Not Reportable, ESR 47 H 07/30/18 05:58: Sodium 141, Potassium 4.3, Chloride 110 H, Carbon Dioxide 26.0, Anion Gap 5, BUN 14, Creatinine 0.78, Estim Creat Clear Calc 81.11, Est GFR (MDRD) Af Amer 100, Est GFR (MDRD) Non-Af 82, BUN/Creatinine Ratio 18.1, Glucose 94, Calcium 8.7, C-React Prot Ext Range 61.60 H 07/30/18 06:28: POC Glucose 104 Current Medications Acetaminophen (Tylenol) 650 mg PO Q6H PRN PRN PRN Reason: Mild Pain (1-3)/Temp > 100.7 F Atorvastatin Calcium (Lipitor) 40 mg PO DAILY@2200 COREY Dextrose (D50w Syringe) 0 gm IV X1 PRN; Protocol PRN Reason: Hypoglycemia Glimepiride (Amaryl) 4 mg PO DAILYCM [facility] Glucagon () 1 mg IM .X1 PRN PRN Reason: Hypoglycemia Heparin Sodium (Porcine) (Heparin Na) 5,000 unit SC Q8 [facility] Last Admin: 07/30/18 06:24 Dose: 5,000 unit Piperacillin Sod/Tazobactam (Sod 3.375 gm/ Sodium Chloride) 50 mls @ 100 mls/hr IV Q8 COREY Last Admin: 07/30/18 06:24 Dose: 100 mls/hr Vancomycin IV Pharmacy to Dose (2,000 ea/ Sodium Chloride) 500 mls @ 250 mls/hr IV PRN PRN; Protocol Vancomycin HCl 1,250 mg/ (Sodium Chloride) 275 mls @ 167 mls/hr IV Q12H [facility] Insulin Human Lispro (Humalog Kwikpen (Bkc)) 0 unit SQ ACHS & 3AM COREY; Protocol Last Admin: 07/30/18 06:51 Dose: Not Given Linagliptin (Tradjenta) 5 mg PO DAILY [facility] Losartan Potassium (Cozaar) 50 mg PO DAILY [facility] Morphine Sulfate () 2 mg IV Q3H PRN PRN PRN Reason: Severe pain (7-10/10) Ondansetron HCl (Zofran) 4 mg IV Q6H PRN PRN PRN Reason: NAUSEA/VOMITING Oxycodone HCl (Oxyir) 5 mg PO Q4H PRN PRN PRN Reason: Moderate Pain (4-6/10) Last Admin: 07/30/18 06:21 Dose: 5 mg Pantoprazole Sodium (Protonix) 20 mg PO DAILY [facility] Sodium Chloride () 5 - 15 ml IV UD PRN PRN Reason: SALINE FLUSH Medical Necessity - Tobacco Use Smoking Status: Current every day smoker Tobacco Use: Cigarettes Assessment/Plan All Active Problems Osteomyelitis, jaw acute (Acute) Hypoglycemia (Acute) GERD (gastroesophageal reflux disease) (Acute) Dental abscess (Acute) Elevated serum creatinine (Acute) 52-year-old female department, history of hypertension, CAD status post stent, type II DM, who was recently admitted and discharged and treated for left mandibular dental abscess status post surgery, drain insertion, and removal. Patient presents with persistent left mandibular swelling and discharge. 1. Left alpha-hemolytic mandibular abscess, no osteomyelitis noted from CT of the soft tissue, ID on board Wound cultures growing alpha-hemolytic organism Patient is on IV vancomycin and Zosyn, will continue the same 2. Type II DM, sugars are fairly controlled, continue on Amaryl, Tradjenta, continue with Accu-Cheks with insulin sliding scale 3. Hypertension, controlled, continue losartan 4. Nicotine dependence, refused replacement 5. DVT prophylaxis -heparin subcu Code Visit Inpatient E&M: 94772 Subs Hosp L2
--- NOTE | 2018-07-30 09:45 | CASEMGMT ---
RN CM Face to Face with patient for initial transition planning/care coordination assessment. RN CM introduced self and role at [facility]. Patient lying in bed, alert and oriented. Patient willing to participate in assessment and is able to answer all questions appropriately. Care providers, pharmacy, and demographics verified. Patient wishes to discharge home, denies need for home health at this time, will monitor for need for IV ATBs and HHC. Patient states she has no further needs or concerns at this time. CM to follow for discharge planning needs that may arise. PCP: Ted Denis Specialists: Amy, oral surgeon; Sheyla, infectious disease Preferred Pharmacy: [facility] Insurance: MMO/TPA Prescription Benefit: yes Living Will/HPOA: none LNOK: Living Arrangements: Patient lives with in 1 story home with 3 steps to enter the home. Patient is independent at home. Transportation: self/ DME/HHC: Patient denies any DME or previous HHC Disposition Plan: Patient to discharge home with family support and follow-up plans in place. Monitor for HHC and IV ATBs at discharge. Deepali CARTAGENAN, RN, CM
[2018-07-30] MEDS: Losartan Potassium 50 MG Tablet PO (10:16)
[2018-07-30] MEDS: Glimepiride 4 MG Tablet PO (10:16)
[2018-07-30] MEDS: Pantoprazole Sodium 20 MG Tablet PO (10:16)
[2018-07-30] MEDS: LINAGLIPTIN 5 MG TABLET PO (10:17)
[2018-07-30 10:40] VITALS: BP 142/72; PULSE 87; RESP 20; TEMP 36.9; O2SAT 98
--- NOTE | 2018-07-30 11:51 | CON.PCM_ITS ---
Problem List (1) Osteomyelitis, jaw acute Status: Acute Reason for Consult: jaw osteo Consulted by: Dr. Reyna History of Present Illness: The patient is a 52 year old F with L jaw osteo due to infected tooth. Taken to OR by Dr. Reyes 07/09, surg cx with s.viridans x2, GPR. Was on po clinda for next three weeks without improvement, ongoing purulence from surgical site, mild chills, some nausea. Developed progressive swelling/pain/warmth/redness extending up L side of face. Referred to ID, seen by me yesterday, sent to ED. Bcx and wound cx collected, vanc/zosyn started, CT showed likely abscess extending upwards. Feeling ok today, some nausea. Full ROS performed and neg except as noted above. - Medical History Past Medical History (Chronic Problems): Chronic Problems Tobacco dependence due to cigarettes (Chronic) Type 2 diabetes mellitus (Chronic) Obesity (Chronic) Hypertension (Chronic) Hyperlipidemia (Chronic) Normochromic normocytic anemia (Chronic) History of PTCA (Chronic) 2 stents done at [place] in 2017 CAD (coronary artery disease) (Chronic) Allergies/Adverse Reactions: Allergies No Known Allergies Allergy (Verified 07/29/18 17:33) Home Medications: Ambulatory Orders Medication Instructions Recorded Losartan Potassium [Cozaar] 50 mg PO DAILY 07/02/18 Metformin HCl [Glucophage] 1,000 mg PO BIDCM 07/02/18 Omeprazole [Prilosec] 20 mg PO DAILY 07/02/18 Ticagrelor [Brilinta] 90 mg PO DAILY 07/02/18 Atorvastatin Calcium [Lipitor] 40 mg PO DAILY 07/29/18 Glimepiride 4 mg PO DAILY 07/29/18 Sitagliptin Phosphate [Januvia] 100 mg PO DAILY 07/29/18 - Social History Tobacco Use: cigarettes Vital Signs Temp Pulse Resp BP Pulse Ox 98.4 F 87 20 H 142/72 H 98 07/30/18 10:40 07/30/18 10:40 07/30/18 10:40 07/30/18 10:40 07/30/18 10:40 Oxygen Delivery Method Room Air Weight: 96.5 kg Body Mass Index (BMI) 32.8 Microbiology Past 72 Hours 07/29/18 18:40 Gram Stain - Final Wound Abcess - Other Laboratory Tests Past 24 Hrs 07/29/18 07/29/18 07/29/18 18:15 18:15 18:15 WBC 10.0 RBC 3.08 L Hgb 9.2 L Hct 28.0 L MCV 90.9 MCH 29.9 MCHC 32.9 RDW 13.8 RDW Differential 44.3 H Plt Count 250 MPV 9.6 Immature Gran % (Auto) 0.400 Neut % (Auto) 70.3 H Lymph % (Auto) 18.2 L [place] % (Auto) 9.2 Eos % (Auto) 1.7 Baso % (Auto) 0.2 Absolute Neuts (auto) 7.1 Absolute Lymphs (auto) 1.82 Total Counted Not Reportable ESR PT 14.2 INR 1.1 APTT 31.8 Sodium 141 Potassium 4.0 Chloride 109 H Carbon Dioxide 26.0 Anion Gap 6 BUN 20 H Creatinine 0.96 Estim Creat Clear Calc 65.90 Est GFR (MDRD) Af Amer 78 Est GFR (MDRD) Non-Af 64 BUN/Creatinine Ratio 20.8 H Glucose 232 H Lactic Acid Calcium 8.6 Total Bilirubin 0.20 AST 9 L ALT 14 Alkaline Phosphatase 70 C-React Prot Ext Range Total Protein 7.4 Albumin 3.2 Globulin 4.2 Albumin/Globulin Ratio 0.8 L 07/29/18 07/30/18 07/30/18 18:15 05:58 05:58 WBC 9.9 RBC 3.04 L Hgb 8.9 L Hct 27.7 L MCV 91.1 MCH 29.3 MCHC 32.1 RDW 14.0 RDW Differential 44.9 H Plt Count 239 MPV 9.2 Immature Gran % (Auto) 0.200 Neut % (Auto) 70.3 H Lymph % (Auto) 17.0 L [place] % (Auto) 10.5 H Eos % (Auto) 1.8 Baso % (Auto) 0.2 Absolute Neuts (auto) 6.9 Absolute Lymphs (auto) 1.68 Total Counted Not Reportable ESR 47 H PT INR APTT Sodium 141 Potassium 4.3 Chloride 110 H Carbon Dioxide 26.0 Anion Gap 5 BUN 14 Creatinine 0.78 Estim Creat Clear Calc 81.11 Est GFR (MDRD) Af Amer 100 Est GFR (MDRD) Non-Af 82 BUN/Creatinine Ratio 18.1 Glucose 94 Lactic Acid 1.8 Calcium 8.7 Total Bilirubin AST ALT Alkaline Phosphatase C-React Prot Ext Range 61.60 H Total Protein Albumin Globulin Albumin/Globulin Ratio - Other Studies Radiology: [] reviewed Other Studies: [] Route of nutrition/ use of supplements: [] Nutritional Intake: [] IV Site: [] [place] Catheter: [] - Physical Exam General: Alert, Oriented x3, Cooperative, - - ill appearing HEENT: Atraumatic, PERRLA, EOMI, - - L face with swelling, warmth, mild erythema. L mandible with purulence from surg site. Neck: Supple, No Nodes Lungs: Clear to auscultation, Normal air movement Cardiovascular: Regular rate, Regular Rhythm, No murmurs Abdomen: Soft, Non Tender, Non-Distended Extremities: No edema Musculoskeletal: No Tenderness to Palpation of Joints or Extremities Neurological: Cranial nerves II-XII grossly intact - Assessment/Plan Antibiotics: [] Assessment/Plan: [] L jaw osteo with worsening associated abscess extending up to temporal area - cxs pending, Dr. Reyes to see. I think she will need surgical debridement. Cont vanc/zosyn. Check staph aureus pcr. 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
[2018-07-30] MEDS: Morphine 2 MG/ML Syringe IV (12:58)
[2018-07-30] MEDS: 0.9% NaCl Peripheral Flush Adult/Peds IV (12:59)
[2018-07-30 13:05] LABS: Bedside Glucose 139 mg/dL (70-110)
--- NOTE | 2018-07-30 14:14 | PCM.CONS.GEN ---
Reason for Consult Date of Consultation: 07/30/18 Reason for Consultation: Continued left facial abscess from odontogenic sources. 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 She was taken to OR with same symptoms of trismus elevated white count although and pain. Difficult intubation due to trismus. I was able to remove the offending teeth and drained the americanization teacher and buccal and lingual spaces in addition to the extractions. Much exudate at that surgery. She continued to improve and was discharged hoem after 2 days. I continued to see her in office where she improved. She continues to have significant drainage. Past Medical History Past Medical History (Chronic Problems): Chronic Problems Tobacco dependence due to cigarettes (Chronic) Type 2 diabetes mellitus (Chronic) Obesity (Chronic) Hypertension (Chronic) Hyperlipidemia (Chronic) Normochromic normocytic anemia (Chronic) History of PTCA (Chronic) 2 stents done at [place] in 2016 CAD (coronary artery disease) (Chronic) Allergies No Known Allergies Allergy (Verified 07/29/18 17:33) Home Medications: Ambulatory Orders Medication Instructions Recorded Losartan Potassium [Cozaar] 50 mg PO DAILY 07/02/18 Metformin HCl [Glucophage] 1,000 mg PO BIDCM 07/02/18 Omeprazole [Prilosec] 20 mg PO DAILY 07/02/18 Ticagrelor [Brilinta] 90 mg PO DAILY 07/02/18 Atorvastatin Calcium [Lipitor] 40 mg PO DAILY 07/29/18 Glimepiride 4 mg PO DAILY 07/29/18 Sitagliptin Phosphate [Januvia] 100 mg PO DAILY 07/29/18 Surgical History: hysterectomy - Hysterectomy with bilateral oophorectomy and removal of a 25 pound ovarian mass-benign, - - PTCA with 2 stents done at [facility] in 2016 Psychiatric History: 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 Maternal History Items: COPD, - - Mother of COPD Patient Problems: Active and Suspected Problems Osteomyelitis, jaw acute (Acute) - Physical Exam General: Alert, Oriented x3, Cooperative, No apparent distress HEENT: Atraumatic, PERRLA, Normocephalic Oral: Moist Mucosa Neck: Supple Lungs: Normal air movement Skin: No rashes Musculoskeletal: No Tenderness to Palpation of Joints or Extremities Neurological: Cranial nerves II-XII grossly intact Psych/Mental Status: Normal Affect, Appropriate Vital Signs Temp Pulse Resp BP Pulse Ox 98.4 F 87 20 H 142/72 H 98 07/30/18 10:40 07/30/18 10:40 07/30/18 10:40 07/30/18 10:40 07/30/18 10:40 Oxygen Delivery Method Room Air Weight: 96.5 kg Body Mass Index (BMI) 32.8 Intake and Output for Last 24 Hours 07/28/18 07/29/18 07/30/18 23:59 23:59 23:59 Intake Total 1685 / 1685 Output Total 1500 / 1500 Balance 185 / 185 Microbiology Past 72 Hours 07/29/18 18:40 Gram Stain - Final Wound Abcess - Other Wound Culture - Preliminary Alpha hemolytic organism Laboratory Tests Past 24 Hrs 07/29/18 07/29/18 07/29/18 18:15 18:15 18:15 WBC 10.0 RBC 3.08 L Hgb 9.2 L Hct 28.0 L MCV 90.9 MCH 29.9 MCHC 32.9 RDW 13.8 RDW Differential 44.3 H Plt Count 250 MPV 9.6 Immature Gran % (Auto) 0.400 Neut % (Auto) 70.3 H Lymph % (Auto) 18.2 L [place] % (Auto) 9.2 Eos % (Auto) 1.7 Baso % (Auto) 0.2 Absolute Neuts (auto) 7.1 Absolute Lymphs (auto) 1.82 Total Counted Not Reportable ESR PT 14.2 INR 1.1 APTT 31.8 Sodium 141 Potassium 4.0 Chloride 109 H Carbon Dioxide 26.0 Anion Gap 6 BUN 20 H Creatinine 0.96 Estim Creat Clear Calc 65.90 Est GFR (MDRD) Af Amer 78 Est GFR (MDRD) Non-Af 64 BUN/Creatinine Ratio 20.8 H Glucose 232 H Lactic Acid Calcium 8.6 Total Bilirubin 0.20 AST 9 L ALT 14 Alkaline Phosphatase 70 C-React Prot Ext Range Total Protein 7.4 Albumin 3.2 Globulin 4.2 Albumin/Globulin Ratio 0.8 L 07/29/18 07/30/18 07/30/18 18:15 05:58 05:58 WBC 9.9 RBC 3.04 L Hgb 8.9 L Hct 27.7 L MCV 91.1 MCH 29.3 MCHC 32.1 RDW 14.0 RDW Differential 44.9 H Plt Count 239 MPV 9.2 Immature Gran % (Auto) 0.200 Neut % (Auto) 70.3 H Lymph % (Auto) 17.0 L [place] % (Auto) 10.5 H Eos % (Auto) 1.8 Baso % (Auto) 0.2 Absolute Neuts (auto) 6.9 Absolute Lymphs (auto) 1.68 Total Counted Not Reportable ESR 47 H PT INR APTT Sodium 141 Potassium 4.3 Chloride 110 H Carbon Dioxide 26.0 Anion Gap 5 BUN 14 Creatinine 0.78 Estim Creat Clear Calc 81.11 Est GFR (MDRD) Af Amer 100 Est GFR (MDRD) Non-Af 82 BUN/Creatinine Ratio 18.1 Glucose 94 Lactic Acid 1.8 Calcium 8.7 Total Bilirubin AST ALT Alkaline Phosphatase C-React Prot Ext Range 61.60 H Total Protein Albumin Globulin Albumin/Globulin Ratio POC Glucose 07/30/18 07/30/18 07/30/18 12:11 06:28 02:18 POC Glucose 139 H 104 110 Assessment/Plan All Active Problems Osteomyelitis, jaw acute (Acute) Hypoglycemia (Acute) GERD (gastroesophageal reflux disease) (Acute) Dental abscess (Acute) Elevated serum creatinine (Acute) Discussed case with hospitalist. Due to difficult airway, and patient reports swelling coming down and she continues to have drainage which was establishe 1-2 weeks ago I did not feel rushing to the OR for debridement was indicated and especially concerning the difficult airway at that time. She will remain in hospital with fluids and aggressive IV antibiotic therapy with further assessment.
[2018-07-30 16:31] LABS: Bedside Glucose 98 mg/dL (70-110)
[2018-07-30 16:33] VITALS: BP 134/68; PULSE 96; RESP 18; TEMP 37.1; O2SAT 97
[2018-07-30] MEDS: Acetaminophen 325 MG Tablet 650 MG PO (18:59)
[2018-07-30 20:33] VITALS: BP 141/70; PULSE 85; RESP 18; TEMP 37.5; O2SAT 95
[2018-07-30] MEDS: Insulin Lispro 100 UNIT/ML INSULN.PEN SQ (22:42)
[2018-07-30] MEDS: Atorvastatin Calcium 40 MG Tablet PO (22:43)
[2018-07-30 22:51] LABS: Bedside Glucose 236 mg/dL (70-110)
[2018-07-30 22:51] LABS: Bedside Glucose 220 mg/dL (70-110)
[2018-07-31 02:46] VITALS: BP 143/81; PULSE 91; RESP 18; TEMP 37.5; O2SAT 95
[2018-07-31] MEDS: oxyCODONE 5 MG Tablet PO ×5 (02:55→22:48)
[2018-07-31] MEDS: Heparin Injection (Vial) 5,000 UNIT/ML VIAL 5000 UNIT SC ×3 (05:41→22:41)
[2018-07-31 07:32] VITALS: O2SAT 93
[2018-07-31 07:47] VITALS: BP 138/81; PULSE 86; RESP 18; TEMP 37.3; O2SAT 97
[2018-07-31] MEDS: Losartan Potassium 50 MG Tablet PO (08:53)
[2018-07-31] MEDS: Glimepiride 4 MG Tablet PO (08:53)
[2018-07-31] MEDS: Pantoprazole Sodium 20 MG Tablet PO (08:53)
[2018-07-31] MEDS: LINAGLIPTIN 5 MG TABLET PO (08:53)
[2018-07-31 09:41] LABS: Bedside Glucose 132 mg/dL (70-110)
[2018-07-31 09:41] LABS: Bedside Glucose 97 mg/dL (70-110)
[2018-07-31] MEDS: Insulin Lispro 100 UNIT/ML INSULN.PEN SQ ×3 (11:32→22:41)
[2018-07-31 11:41] LABS: Bedside Glucose 184 mg/dL (70-110)
[2018-07-31 12:05] LABS: Vancomycin, Trough Level 13.3 ug/mL (5.0-15.0)
--- NOTE | 2018-07-31 12:05 | PCM.PN.HOSP ---
Patient Problems: Active and Suspected Problems Osteomyelitis, jaw acute (Acute) Subjective: Patient was seen and examined. Denies any fever or chills. Has lots of drainage in the mouth. She is otherwise stable. Objective: Physical exam: General: Alert, Oriented x3, Cooperative, No apparent distress HEENT: Atraumatic, PERRLA, EOMI, Normocephalic, - - Swelling in the left side of the face and neck Oral: Moist Mucosa Neck: Supple Lungs: Clear to auscultation, Normal air movement Cardiovascular: Regular rate, Regular Rhythm, Normal S1, Normal S2, No murmurs Abdomen: Bowel Sounds Present, Soft, Non Tender, Non-Distended, No Hepato-splenomegaly Extremities: No edema Skin: No rashes, No breakdown Musculoskeletal: No Tenderness to Palpation of Joints or Extremities Lymphatic: No Cervical, Supraclavicular, or Inguinal Adenopathy Neurological: Cranial nerves II-XII grossly intact, Neuro grossly intact Psych/Mental Status: Normal Affect, Appropriate Vitals/I&O's: Vital Signs Temp Pulse Resp BP Pulse Ox 99.1 F 86 18 138/81 H 97 07/31/18 07:47 07/31/18 07:47 07/31/18 07:47 07/31/18 07:47 07/31/18 07:47 Oxygen Delivery Method Room Air Weight: 96.5 kg Body Mass Index (BMI) 32.8 Intake and Output for Last 24 Hours 07/29/18 07/30/18 07/31/18 23:59 23:59 23:59 Intake Total 2781 / 2781 1190 / 1190 Output Total 1999 2400 / 2400 Balance 781 / 781 -1210 / -1210 Microbiology Past 72 Hours 07/29/18 18:40 Wound Abcess - Other Gram Stain - Final 07/29/18 18:40 Wound Abcess - Other Wound Culture - Final Strep not Strep pneumo Strep not Strep pneumo#2 Gram positive stacie Laboratory Results 07/30/18 10:13: POC Glucose 236 H 07/30/18 12:11: POC Glucose 139 H 07/30/18 16:24: POC Glucose 98 07/30/18 22:38: POC Glucose 220 H 07/31/18 02:51: POC Glucose 97 07/31/18 06:43: POC Glucose 132 H 07/31/18 11:20: Vancomycin Trough 13.3 07/31/18 11:29: POC Glucose 184 H Current Medications Acetaminophen (Tylenol) 650 mg PO Q6H PRN PRN PRN Reason: Mild Pain (1-3)/Temp > 100.7 F Last Admin: 07/30/18 18:59 Dose: 650 mg Atorvastatin Calcium (Lipitor) 40 mg PO DAILY@2200 [facility] Last Admin: 07/30/18 22:43 Dose: 40 mg Dextrose (D50w Syringe) 0 gm IV X1 PRN; Protocol PRN Reason: Hypoglycemia Glimepiride (Amaryl) 4 mg PO DAILYCM [facility] Last Admin: 07/31/18 08:53 Dose: 4 mg Glucagon () 1 mg IM .X1 PRN PRN Reason: Hypoglycemia Heparin Sodium (Porcine) (Heparin Na) 5,000 unit SC Q8 [facility] Last Admin: 07/31/18 05:41 Dose: 5,000 unit Piperacillin Sod/Tazobactam (Sod 3.375 gm/ Sodium Chloride) 50 mls @ 100 mls/hr IV Q8 [facility] Last Admin: 07/31/18 05:41 Dose: 100 mls/hr Vancomycin IV Pharmacy to Dose (2,000 ea/ Sodium Chloride) 500 mls @ 250 mls/hr IV PRN PRN; Protocol Vancomycin HCl 1,250 mg/ (Sodium Chloride) 275 mls @ 167 mls/hr IV Q12H [facility] Last Admin: 07/31/18 11:31 Dose: 167 mls/hr Insulin Human Lispro (Humalog Kwikpen (Bkc)) 0 unit SQ ACHS & 3AM [facility]; Protocol Last Admin: 07/31/18 11:32 Dose: 2 units Linagliptin (Tradjenta) 5 mg PO DAILY [facility] Last Admin: 07/31/18 08:53 Dose: 5 mg Losartan Potassium (Cozaar) 50 mg PO DAILY [facility] Last Admin: 07/31/18 08:53 Dose: 50 mg Morphine Sulfate () 2 mg IV Q3H PRN PRN PRN Reason: Severe pain (7-10/10) Last Admin: 07/30/18 12:58 Dose: 2 mg Ondansetron HCl (Zofran) 4 mg IV Q6H PRN PRN PRN Reason: NAUSEA/VOMITING Oxycodone HCl (Oxyir) 5 mg PO Q4H PRN PRN PRN Reason: Moderate Pain (4-6/10) Last Admin: 07/31/18 07:57 Dose: 5 mg Pantoprazole Sodium (Protonix) 20 mg PO DAILY [facility] Last Admin: 07/31/18 08:53 Dose: 20 mg Sodium Chloride () 5 - 15 ml IV UD PRN PRN Reason: SALINE FLUSH Last Admin: 07/30/18 12:59 Dose: 10 ml Medical Necessity - Tobacco Use Smoking Status: Current every day smoker Tobacco Use: Cigarettes Assessment/Plan All Active Problems Osteomyelitis, jaw acute (Acute) Hypoglycemia (Acute) GERD (gastroesophageal reflux disease) (Acute) Dental abscess (Acute) Elevated serum creatinine (Acute) 52-year-old female department with past medical history of hypertension, CAD status post stent, type II DM, who was recently admitted and discharged and treated for left mandibular dental abscess status post surgery, drain insertion, and removal. Patient presents with persistent left mandibular swelling and discharge. 1. Left streptococcus mandibular abscess, no osteomyelitis noted from CT of the soft tissue, ID and alecia-maxillofacial surgeon on board Wound cultures growing streptococcus, continue on IV vancomycin and Zosyn, 2. Type II DM, sugars are controlled, continue on Amaryl, Tradjenta, continue with Accu-Cheks with insulin sliding scale 3. Hypertension, controlled, continue losartan 4. Nicotine dependence, refused replacement 5. DVT prophylaxis -heparin subcu Code Visit Inpatient E&M: 42672 Subs Hosp L2
--- NOTE | 2018-07-31 12:08 | PN_ITS ---
Patient Problems: Active and Suspected Problems Osteomyelitis, jaw acute (Acute) Subjective: Patient was seen and examined. Denies any fever or chills. Has lots of drainage in the mouth. She is otherwise stable. Objective: Physical exam: General: Alert, Oriented x3, Cooperative, No apparent distress HEENT: Atraumatic, PERRLA, EOMI, Normocephalic, - - Swelling in the left side of the face and neck Oral: Moist Mucosa Neck: Supple Lungs: Clear to auscultation, Normal air movement Cardiovascular: Regular rate, Regular Rhythm, Normal S1, Normal S2, No murmurs Abdomen: Bowel Sounds Present, Soft, Non Tender, Non-Distended, No Hepato- splenomegaly Extremities: No edema Skin: No rashes, No breakdown Musculoskeletal: No Tenderness to Palpation of Joints or Extremities Lymphatic: No Cervical, Supraclavicular, or Inguinal Adenopathy Neurological: Cranial nerves II-XII grossly intact, Neuro grossly intact Psych/Mental Status: Normal Affect, Appropriate Vitals/I&O's: Vital Signs Temp Pulse Resp BP Pulse Ox 99.1 F 86 18 138/81 H 97 07/31/18 07:47 07/31/18 07:47 07/31/18 07:47 07/31/18 07:47 07/31/18 07:47 Oxygen Delivery Method Room Air Weight: 96.5 kg Body Mass Index (BMI) 32.8 Intake and Output for Last 24 Hours 07/29/18 07/30/18 07/31/18 23:59 23:59 23:59 Intake Total 2781 / 2781 1190 / 1190 Output Total 1999 2400 / 2400 Balance 781 / 781 -1210 / -1210 Microbiology Past 72 Hours 07/29/18 18:40 Wound Abcess - Other Gram Stain - Final 07/29/18 18:40 Wound Abcess - Other Wound Culture - Final Strep not Strep pneumo Strep not Strep pneumo#2 Gram positive stacie Laboratory Results 07/30/18 10:13: POC Glucose 236 H 07/30/18 12:11: POC Glucose 139 H 07/30/18 16:24: POC Glucose 98 07/30/18 22:38: POC Glucose 220 H 07/31/18 02:51: POC Glucose 97 07/31/18 06:43: POC Glucose 132 H 07/31/18 11:20: Vancomycin Trough 13.3 07/31/18 11:29: POC Glucose 184 H Current Medications Acetaminophen (Tylenol) 650 mg PO Q6H PRN PRN PRN Reason: Mild Pain (1-3)/Temp > 100.7 F Last Admin: 07/30/18 18:59 Dose: 650 mg Atorvastatin Calcium (Lipitor) 40 mg PO DAILY@2200 [facility] Last Admin: 07/30/18 22:43 Dose: 40 mg Dextrose (D50w Syringe) 0 gm IV X1 PRN; Protocol PRN Reason: Hypoglycemia Glimepiride (Amaryl) 4 mg PO DAILYCM [facility] Last Admin: 07/31/18 08:53 Dose: 4 mg Glucagon () 1 mg IM .X1 PRN PRN Reason: Hypoglycemia Heparin Sodium (Porcine) (Heparin Na) 5,000 unit SC Q8 [facility] Last Admin: 07/31/18 05:41 Dose: 5,000 unit Piperacillin Sod/Tazobactam (Sod 3.375 gm/ Sodium Chloride) 50 mls @ 100 mls/hr IV Q8 [facility] Last Admin: 07/31/18 05:41 Dose: 100 mls/hr Vancomycin IV Pharmacy to Dose (2,000 ea/ Sodium Chloride) 500 mls @ 250 mls/hr IV PRN PRN; Protocol Vancomycin HCl 1,250 mg/ (Sodium Chloride) 275 mls @ 167 mls/hr IV Q12H [facility] Last Admin: 07/31/18 11:31 Dose: 167 mls/hr Insulin Human Lispro (Humalog Kwikpen (Bkc)) 0 unit SQ ACHS & 3AM [facility]; Protocol Last Admin: 07/31/18 11:32 Dose: 2 units Linagliptin (Tradjenta) 5 mg PO DAILY [facility] Last Admin: 07/31/18 08:53 Dose: 5 mg Losartan Potassium (Cozaar) 50 mg PO DAILY [facility] Last Admin: 07/31/18 08:53 Dose: 50 mg Morphine Sulfate () 2 mg IV Q3H PRN PRN PRN Reason: Severe pain (7-10/10) Last Admin: 07/30/18 12:58 Dose: 2 mg Ondansetron HCl (Zofran) 4 mg IV Q6H PRN PRN PRN Reason: NAUSEA/VOMITING Oxycodone HCl (Oxyir) 5 mg PO Q4H PRN PRN PRN Reason: Moderate Pain (4-6/10) Last Admin: 07/31/18 07:57 Dose: 5 mg Pantoprazole Sodium (Protonix) 20 mg PO DAILY [facility] Last Admin: 07/31/18 08:53 Dose: 20 mg Sodium Chloride () 5 - 15 ml IV UD PRN PRN Reason: SALINE FLUSH Last Admin: 07/30/18 12:59 Dose: 10 ml Medical Necessity - Tobacco Use Smoking Status: Current every day smoker Tobacco Use: Cigarettes Assessment/Plan All Active Problems Osteomyelitis, jaw acute (Acute) Hypoglycemia (Acute) GERD (gastroesophageal reflux disease) (Acute) Dental abscess (Acute) Elevated serum creatinine (Acute) 52-year-old female department with past medical history of hypertension, CAD status post stent, type II DM, who was recently admitted and discharged and treated for left mandibular dental abscess status post surgery, drain insertion, and removal. Patient presents with persistent left mandibular swelling and discharge. 1. Left streptococcus mandibular abscess, no osteomyelitis noted from CT of the soft tissue, ID and alecia-maxillofacial surgeon on board Wound cultures growing streptococcus, continue on IV vancomycin and Zosyn, 2. Type II DM, sugars are controlled, continue on Amaryl, Tradjenta, continue with Accu-Cheks with insulin sliding scale 3. Hypertension, controlled, continue losartan 4. Nicotine dependence, refused replacement 5. DVT prophylaxis -heparin subcu Code Visit Inpatient E&M: 09555 Subs Hosp L2
[2018-07-31 14:00] VITALS: BP 147/74; PULSE 81; RESP 18; TEMP 37.2; O2SAT 99
--- NOTE | 2018-07-31 14:13 | PCM.RX.CS ---
Consult Pharmacy has been consulted to manage selected antiobiotic: Vancomycin Type of Consult: Follow-up Suspected Infection: Skin/Soft tissue, Osteomyelitis Prior Doses of Antibiotics Received/Current Regimen: Medications Discontinued Medications Vancomycin HCl 1,250 mg/ (Sodium Chloride) 275 mls @ 167 mls/hr IV Q12H [facility] Last Admin: 07/31/18 11:31 Dose: 167 mls/hr Labs: Sodium 141 mmol/L (136-145) 07/30/18 05:58 Potassium 4.3 mmol/L (3.5-5.1) 07/30/18 05:58 Chloride 110 mmol/L (98-107) H 07/30/18 05:58 Carbon Dioxide 26.0 mmol/L (21.0-32.0) 07/30/18 05:58 Anion Gap 5 (5-15) 07/30/18 05:58 BUN 14 mg/dL (7-18) 07/30/18 05:58 Creatinine 0.78 mg/dL (0.55-1.02) 07/30/18 05:58 Est GFR (MDRD) Af Amer 100 mL/min (>60) 07/30/18 05:58 Est GFR (MDRD) Non-Af 82 mL/min (>60) 07/30/18 05:58 BUN/Creatinine Ratio 18.1 RATIO (10-20) 07/30/18 05:58 Glucose 94 mg/dL (74-106) 07/30/18 05:58 Vancomycin Trough 13.3 ug/mL (5.0-15.0) 07/31/18 11:20 Microbiology: Microbiology 07/29/18 18:40 Wound Abcess - Other Gram Stain - Final 07/29/18 18:40 Wound Abcess - Other Wound Culture - Final Strep not Strep pneumo Strep not Strep pneumo#2 Gram positive stacie Goal Trough: 15-20 mcg/mL Pharmacy Plan for Drug Dosing: The patient had a trough drawn which resulted in a value of 13.3 (~11.5hrs from last administered dose). The patient has a goal trough of 15-20. Given patient diagnosis, will increase the dose in an attempt to target the 15-20 trough goal range. Will recheck a trough prior to the 4th dose of new regimen and adjust then as necessary. PLAN/RECOMMENDATIONS 1. Vancomycin 1500mg IV Q12hr to start 07/31/18 @2300 2. Trough scheduled 08/02/18 @1030, prior to 4th dose of new regimen 3. Pharmacy Service will continue to monitor and adjust dosing as required.
--- NOTE | 2018-07-31 15:15 | PCM.PN.BLA ---
Progress Note Patient seen this afternoon with continued pain in the left temporal region. It does appear slightly more reddened. Trismus continues. Diagnosis at this time is left measurement superintendent space infection as a result of abscessed teeth which have been removed several weeks ago now with superior extension into the left temporal space. The original drainage sites continue to drain. At this time I would like to take the patient to OR for I and D of the left temporal spaces with debridement. This will be done tomorrow morning after being NPO this evening.
--- NOTE | 2018-07-31 15:25 | PN_ITS ---
Progress Note Patient seen this afternoon with continued pain in the left temporal region. It does appear slightly more reddened. Trismus continues. Diagnosis at this time is left siebel architect space infection as a result of abscessed teeth which have been removed several weeks ago now with superior extension into the left temporal space. The original drainage sites continue to drain. At this time I would like to take the patient to OR for I and D of the left temporal spaces with debridement. This will be done tomorrow morning after being NPO this evening.
--- NOTE | 2018-07-31 16:35 | PCM.PN.ID ---
Patient Problems: Active and Suspected Problems Osteomyelitis, jaw acute (Acute) - Physical Exam Vital Signs Temp Pulse Resp BP Pulse Ox 99.0 F 81 18 147/74 H 99 07/31/18 14:00 07/31/18 14:00 07/31/18 14:00 07/31/18 14:00 07/31/18 14:00 Oxygen Delivery Method Room Air Weight: 96.5 kg Body Mass Index (BMI) 32.8 Intake and Output for Last 24 Hours 07/29/18 07/30/18 07/31/18 23:59 23:59 23:59 Intake Total 2781 / 2781 2126 / 2126 Output Total 1999 3300 / 3300 Balance 781 / 781 -1173 / -1173 Microbiology Past 72 Hours 07/30/18 12:30 Nasal Screen MRSA/MSSA - Final Swab (Method) 07/29/18 18:40 Gram Stain - Final Wound Abcess - Other Wound Culture - Final Strep not Strep pneumo Strep not Strep pneumo#2 Gram positive stacie Laboratory Tests Past 24 Hrs 07/31/18 11:20 Vancomycin Trough 13.3 POC Glucose 07/31/18 07/31/18 07/31/18 11:29 06:43 02:51 POC Glucose 184 H 132 H 97 07/30/18 07/30/18 22:38 10:13 POC Glucose 220 H 236 H Medical Necessity - Tobacco Use Smoking Status: Current every day smoker Tobacco Use: Cigarettes Route of nutrition/ use of supplements: [] Nutritional Intake: [] IV Site: [] [place] Catheter: [] - Assessment/Plan Antibiotics: [] Assessment/Plan: [] L jaw osteo with worsening associated abscess extending up to temporal area - cx with strep and GPR. MRSA pcr neg. Will stop vanc, narrow zosyn to ceftriaxone/flagyl due to unasyn shortage. Will follow.
[2018-07-31 16:51] LABS: Bedside Glucose 160 mg/dL (70-110)
[2018-07-31 21:04] VITALS: BP 146/64; PULSE 84; RESP 16; TEMP 37.5; O2SAT 97
[2018-07-31] MEDS: metroNIDAZOLE 500 MG Tablet PO (22:41)
[2018-07-31] MEDS: Atorvastatin Calcium 40 MG Tablet PO (22:41)
[2018-07-31 22:50] LABS: Bedside Glucose 214 mg/dL (70-110)
[2018-08-01] VITALS (14 sets, daily range): BP systolic 127–164; BP diastolic 54–90; PULSE 64–104; RESP 14–18; TEMP 36.6–37.3; O2SAT 92–100; BMI 32.8
[2018-08-01 02:36] LABS: Bedside Glucose 121 mg/dL (70-110)
--- NOTE | 2018-08-01 05:00 | EKG12_ITS ---
Test Reason : PRE OP Blood Pressure : / mmHG Vent. Rate : 087 BPM Atrial Rate : 087 BPM P-R Int : 156 ms QRS Dur : 078 ms QT Int : 364 ms P-R-T Axes : 054 009 031 degrees QTc Int : 438 ms Normal sinus rhythm Septal infarct (cited on or before 09-JUL-2018) Abnormal ECG When compared with ECG of 09-JUL-2018 12:39, No significant change was found Confirmed by FRANCIS CORNELIUS, ROSE ([id number]), science editor MIRLANDE ELAINE ([id number]) on 08/03/2018 2:04:03 PM Referred By: KRISTOPHER Confirmed By:ROSE BLANCO MD
[2018-08-01] MEDS: metroNIDAZOLE 500 MG Tablet PO (05:55)
[2018-08-01] MEDS: oxyCODONE 5 MG Tablet PO ×2 (06:07→21:03)
--- NOTE | 2018-08-01 06:12 | NURSING ---
Pt took Flagyl & Oxyir with approximately 3 cc of water since she is NPO for surgery.
[2018-08-01 06:31] LABS: Absolute Lymphocyte Count 1.76 X10^3/ul (0.83-4.51); Absolute Neutrophil Count 5.5 X10^3/uL (2.0-7.7); Basophil# 0.03 X10^3/uL; Basophil% 0.4 % (0-1); Eosinophil# 0.19 X10^3/uL; Eosinophils% 2.3 % (0-5); Hematocrit 25.5 % (37-47); Hemoglobin 8.5 g/dl (12.0-15.0); Lymphocyte # 1.76 X10^3/ul (4.0); Lymphocyte % 20.9 % (19-41); Mean Corp Hgb Conc 33.3 g/gl (32-36); Mean Corpuscular Hgb 29.7 pg (27.0-32.0); Mean Corpuscular Volume 89.2 fL (81-99); Mean Platelet Vol. 9.1 fl (6.2-12.0); Monocyte# 0.89 X10^3/uL; Monocyte% 10.6 % (0-10); Neutrophil # 5.54 X10^3/uL (2.7-7.7); Neutrophil % 65.6 % (47-70); Platelet Count 238 K/mm3 (150-450); RBC Distribution Width CV 13.6 % (11.6-14.6); RBC Distribution Width SD 44.4 fl (35.1-43.9); Red Blood Count 2.86 M/mm3 (4.2-5.4); White Blood Count 8.4 K/mm3 (4.4-11.0)
[2018-08-01 06:33] LABS: POSITIVE COUNT NO; POSITIVE DIFFERENTIAL NO; POSITIVE MORPHOLOGY NO
[2018-08-01 06:45] LABS: Bedside Glucose 135 mg/dL (70-110)
[2018-08-01 06:48] LABS: BUN 12 mg/dL (7-18); Creatinine, Serum 0.72 mg/dL (0.55-1.02); Estimated Creatinine Clearance 87.87 ml/min; Glucose 118 mg/dL (74-106)
[2018-08-01 06:49] LABS: Anion Gap 7 (5-15); BUN/Creat Ratio 16.6 RATIO (10-20); Calcium,Total 8.8 mg/dL (8.5-10.1); Chloride 106 mmol/L (98-107); EST Glomerular Filtration Rate 89 mL/min (>60); Est Glom Filt Rate - Afr Amer 108 mL/min (>60); Potassium 3.8 mmol/L (3.5-5.1); Sodium Level 140 mmol/L (136-145)
[2018-08-01 08:00] LABS: Hemoglobin A1c 6.3 % (4.2-6.3)
--- NOTE | 2018-08-01 08:25 | PN_ITS ---
Patient Problems: Active and Suspected Problems Osteomyelitis, jaw acute (Acute) Subjective: Patient was seen and examined. Going for surgery today by oromaxillary surgery. Has a lot of output from the mouth. Denies any fever or chills. Feels well. Objective: Physical exam: General: Alert, Oriented x3, Cooperative, No apparent distress HEENT: Atraumatic, PERRLA, EOMI, Normocephalic, - - Swelling in the left side of the face and neck Oral: Moist Mucosa Neck: Supple Lungs: Clear to auscultation, Normal air movement Cardiovascular: Regular rate, Regular Rhythm, Normal S1, Normal S2, No murmurs Abdomen: Bowel Sounds Present, Soft, Non Tender, Non-Distended, No Hepato- splenomegaly Extremities: No edema Skin: No rashes, No breakdown Musculoskeletal: No Tenderness to Palpation of Joints or Extremities Lymphatic: No Cervical, Supraclavicular, or Inguinal Adenopathy Neurological: Cranial nerves II-XII grossly intact, Neuro grossly intact Psych/Mental Status: Normal Affect, Appropriate Vitals/I&O's: Vital Signs Temp Pulse Resp BP Pulse Ox 98.8 F 75 18 151/70 H 98 08/01/18 07:59 08/01/18 07:59 08/01/18 07:59 08/01/18 07:59 08/01/18 07:59 Oxygen Delivery Method Room Air Weight: 96.5 kg Body Mass Index (BMI) 32.8 Intake and Output for Last 24 Hours 07/30/18 07/31/18 08/01/18 23:59 23:59 23:59 Intake Total 2781 / 2781 3017 / 3017 967 / 967 Output Total 1999 4100 / 4100 2500 / 2500 Balance 781 / 781 -1083 / -1083 -1533 / -1533 Microbiology Past 72 Hours 07/29/18 18:20 Blood Culture (Wb) - Right Hand Blood Culture - Preliminary No growth in 48 hours. 07/29/18 18:15 Blood Culture (Wb) - Left Forearm Blood Culture - Preliminary No growth in 48 hours. 07/30/18 12:30 Swab (Method) Nasal Screen MRSA/MSSA - Final 07/29/18 18:40 Wound Abcess - Other Gram Stain - Final 07/29/18 18:40 Wound Abcess - Other Wound Culture - Final Strep not Strep pneumo Strep not Strep pneumo#2 Gram positive stacie Laboratory Results 07/31/18 02:51: POC Glucose 97 07/31/18 06:43: POC Glucose 132 H 07/31/18 11:20: Vancomycin Trough 13.3 07/31/18 11:29: POC Glucose 184 H 07/31/18 16:31: POC Glucose 160 H 07/31/18 22:41: POC Glucose 214 H 08/01/18 02:31: POC Glucose 121 H 08/01/18 05:40: WBC 8.4, RBC 2.86 L, Hgb 8.5 L, Hct 25.5 L, MCV 89.2, MCH 29.7, MCHC 33.3, RDW 13.6, RDW Differential 44.4 H, Plt Count 238, MPV 9.1, Immature Gran % (Auto) 0.200, Neut % (Auto) 65.6, Lymph % (Auto) 20.9, Swift % (Auto) 10.6 H, Eos % (Auto) 2.3, Baso % (Auto) 0.4, Absolute Neuts (auto) 5.5, Absolute Lymphs (auto) 1.76, Total Counted Not Reportable 08/01/18 05:40: Sodium 140, Potassium 3.8, Chloride 106, Carbon Dioxide 27.0, Anion Gap 7, BUN 12, Creatinine 0.72, Estim Creat Clear Calc 87.87, Est GFR (MDRD) Af Amer 108, Est GFR (MDRD) Non-Af 89, BUN/Creatinine Ratio 16.6, Glucose 118 H, Calcium 8.8 08/01/18 05:40: Hemoglobin A1c 6.3 08/01/18 06:38: POC Glucose 135 H Current Medications Acetaminophen (Tylenol) 650 mg PO Q6H PRN PRN PRN Reason: Mild Pain (1-3)/Temp > 100.7 F Last Admin: 07/30/18 18:59 Dose: 650 mg Atorvastatin Calcium (Lipitor) 40 mg PO DAILY@2200 [facility] Last Admin: 07/31/18 22:41 Dose: 40 mg Dextrose (D50w Syringe) 0 gm IV X1 PRN; Protocol PRN Reason: Hypoglycemia Glimepiride (Amaryl) 4 mg PO DAILYCM [facility] Last Admin: 07/31/18 08:53 Dose: 4 mg Glucagon () 1 mg IM .X1 PRN PRN Reason: Hypoglycemia Heparin Sodium (Porcine) (Heparin Na) 5,000 unit SC Q8 [facility] Last Admin: 08/01/18 05:57 Dose: Not Given Ceftriaxone Sodium 2 gm/ (Sodium Chloride) 50 mls @ 100 mls/hr IV Q24 [facility] Last Admin: 07/31/18 17:40 Dose: 100 mls/hr Insulin Human Lispro (Humalog Kwikpen (Bkc)) 0 unit SQ ACHS & 3AM [facility]; Protocol Last Admin: 08/01/18 06:39 Dose: Not Given Linagliptin (Tradjenta) 5 mg PO DAILY [facility] Last Admin: 07/31/18 08:53 Dose: 5 mg Losartan Potassium (Cozaar) 50 mg PO DAILY [facility] Last Admin: 07/31/18 08:53 Dose: 50 mg Metronidazole (Flagyl) 500 mg PO TID [facility] Last Admin: 08/01/18 05:55 Dose: 500 mg Morphine Sulfate () 2 mg IV Q3H PRN PRN PRN Reason: Severe pain (7-10/10) Last Admin: 07/30/18 12:58 Dose: 2 mg Ondansetron HCl (Zofran) 4 mg IV Q6H PRN PRN PRN Reason: NAUSEA/VOMITING Oxycodone HCl (Oxyir) 5 mg PO Q4H PRN PRN PRN Reason: Moderate Pain (4-6/10) Last Admin: 08/01/18 06:07 Dose: 5 mg Pantoprazole Sodium (Protonix) 20 mg PO DAILY [facility] Last Admin: 07/31/18 08:53 Dose: 20 mg Sodium Chloride () 5 - 15 ml IV UD PRN PRN Reason: SALINE FLUSH Last Admin: 07/30/18 12:59 Dose: 10 ml Medical Necessity - Tobacco Use Smoking Status: Current every day smoker Tobacco Use: Cigarettes Assessment/Plan All Active Problems Osteomyelitis, jaw acute (Acute) Hypoglycemia (Acute) GERD (gastroesophageal reflux disease) (Acute) Dental abscess (Acute) Elevated serum creatinine (Acute) 52-year-old female department with past medical history of hypertension, CAD status post stent, type II DM, who was recently admitted and discharged and treated for left mandibular dental abscess status post surgery, drain insertion, and removal. Patient presents with persistent left mandibular swelling and discharge. 1. Left streptococcus mandibular/temporal region abscess, status post recent dental abscess surgery with tooth extraction no osteomyelitis noted from CT of the soft tissue, ID and alecia-maxillofacial surgeon on board Wound cultures growing streptococcus, on IV ceftriaxone and Flagyl 2. Type II DM, sugars are controlled, continue on Amaryl, Tradjenta, continue with Accu-Cheks with insulin sliding scale 3. Hypertension, controlled, continue losartan 4. Nicotine dependence, refused replacement 5. DVT prophylaxis -heparin subcu Code Visit Inpatient E&M: 25567 Subs Hosp L2
--- NOTE | 2018-08-01 08:27 | PN_ITS ---
Patient Problems: Active and Suspected Problems Osteomyelitis, jaw acute (Acute) Vitals/I&O's: Vital Signs Temp Pulse Resp BP Pulse Ox 98.8 F 75 18 151/70 H 98 08/01/18 07:59 08/01/18 07:59 08/01/18 07:59 08/01/18 07:59 08/01/18 07:59 Oxygen Delivery Method Room Air Weight: 96.5 kg Body Mass Index (BMI) 32.8 Intake and Output for Last 24 Hours 07/30/18 07/31/18 08/01/18 23:59 23:59 23:59 Intake Total 2781 / 2781 3017 / 3017 967 / 967 Output Total 1999 4100 / 4100 2500 / 2500 Balance 781 / 781 -1083 / -1083 -1533 / -1533 Microbiology Past 72 Hours 07/29/18 18:20 Blood Culture (Wb) - Right Hand Blood Culture - Preliminary No growth in 48 hours. 07/29/18 18:15 Blood Culture (Wb) - Left Forearm Blood Culture - Preliminary No growth in 48 hours. 07/30/18 12:30 Swab (Method) Nasal Screen MRSA/MSSA - Final 07/29/18 18:40 Wound Abcess - Other Gram Stain - Final 07/29/18 18:40 Wound Abcess - Other Wound Culture - Final Strep not Strep pneumo Strep not Strep pneumo#2 Gram positive stacie Laboratory Results 07/31/18 02:51: POC Glucose 97 07/31/18 06:43: POC Glucose 132 H 07/31/18 11:20: Vancomycin Trough 13.3 07/31/18 11:29: POC Glucose 184 H 07/31/18 16:31: POC Glucose 160 H 07/31/18 22:41: POC Glucose 214 H 08/01/18 02:31: POC Glucose 121 H 08/01/18 05:40: WBC 8.4, RBC 2.86 L, Hgb 8.5 L, Hct 25.5 L, MCV 89.2, MCH 29.7, MCHC 33.3, RDW 13.6, RDW Differential 44.4 H, Plt Count 238, MPV 9.1, Immature Gran % (Auto) 0.200, Neut % (Auto) 65.6, Lymph % (Auto) 20.9, [place] % (Auto) 10.6 H, Eos % (Auto) 2.3, Baso % (Auto) 0.4, Absolute Neuts (auto) 5.5, Absolute Lymphs (auto) 1.76, Total Counted Not Reportable 08/01/18 05:40: Sodium 140, Potassium 3.8, Chloride 106, Carbon Dioxide 27.0, Anion Gap 7, BUN 12, Creatinine 0.72, Estim Creat Clear Calc 87.87, Est GFR (MDRD) Af Amer 108, Est GFR (MDRD) Non-Af 89, BUN/Creatinine Ratio 16.6, Glucose 118 H, Calcium 8.8 08/01/18 05:40: Hemoglobin A1c 6.3 08/01/18 06:38: POC Glucose 135 H Current Medications Acetaminophen (Tylenol) 650 mg PO Q6H PRN PRN PRN Reason: Mild Pain (1-3)/Temp > 100.7 F Last Admin: 07/30/18 18:59 Dose: 650 mg Atorvastatin Calcium (Lipitor) 40 mg PO DAILY@2200 [facility] Last Admin: 07/31/18 22:41 Dose: 40 mg Dextrose (D50w Syringe) 0 gm IV X1 PRN; Protocol PRN Reason: Hypoglycemia Glimepiride (Amaryl) 4 mg PO DAILYCM [facility] Last Admin: 07/31/18 08:53 Dose: 4 mg Glucagon () 1 mg IM .X1 PRN PRN Reason: Hypoglycemia Heparin Sodium (Porcine) (Heparin Na) 5,000 unit SC Q8 [facility] Last Admin: 08/01/18 05:57 Dose: Not Given Ceftriaxone Sodium 2 gm/ (Sodium Chloride) 50 mls @ 100 mls/hr IV Q24 [facility] Last Admin: 07/31/18 17:40 Dose: 100 mls/hr Insulin Human Lispro (Humalog Kwikpen (Bkc)) 0 unit SQ ACHS & 3AM [facility]; Protocol Last Admin: 08/01/18 06:39 Dose: Not Given Linagliptin (Tradjenta) 5 mg PO DAILY [facility] Last Admin: 07/31/18 08:53 Dose: 5 mg Losartan Potassium (Cozaar) 50 mg PO DAILY [facility] Last Admin: 07/31/18 08:53 Dose: 50 mg Metronidazole (Flagyl) 500 mg PO TID [facility] Last Admin: 08/01/18 05:55 Dose: 500 mg Morphine Sulfate () 2 mg IV Q3H PRN PRN PRN Reason: Severe pain (7-10/10) Last Admin: 07/30/18 12:58 Dose: 2 mg Ondansetron HCl (Zofran) 4 mg IV Q6H PRN PRN PRN Reason: NAUSEA/VOMITING Oxycodone HCl (Oxyir) 5 mg PO Q4H PRN PRN PRN Reason: Moderate Pain (4-6/10) Last Admin: 08/01/18 06:07 Dose: 5 mg Pantoprazole Sodium (Protonix) 20 mg PO DAILY [facility] Last Admin: 07/31/18 08:53 Dose: 20 mg Sodium Chloride () 5 - 15 ml IV UD PRN PRN Reason: SALINE FLUSH Last Admin: 07/30/18 12:59 Dose: 10 ml Medical Necessity - Tobacco Use Smoking Status: Current every day smoker Tobacco Use: Cigarettes Assessment/Plan All Active Problems Osteomyelitis, jaw acute (Acute) Hypoglycemia (Acute) GERD (gastroesophageal reflux disease) (Acute) Dental abscess (Acute) Elevated serum creatinine (Acute)
[2018-08-01 09:41] LABS: Bedside Glucose 128 mg/dL (70-110)
[2018-08-01] MEDS: Bupiv/Epi 0.5% Mpf 30 ML Vial (10:28)
--- NOTE | 2018-08-01 11:34 | PCM.OPRPT ---
Report of Operation Date of Procedure: 08/01/18 Pre-Operative Diagnosis: Temporal space abscess as a component of Cryptological Technician space abscess Post-Operative Diagnosis: Same Surgery/Procedure Performed:: I and D of all components of Cryptological Technician space to include pterygomandibular, masseteric and superficial and deep temporal spaces Description of Surgical Findings:: The patient was identified in the pre-op hold area and the discussion for the procedure included re-exploring the masseteric, pterygomandibular and then surgical access for the deep and superficial spaces of the temporal space. She agrees and consent was previously obtained. Risk included but not limited to injury to neurovascular structures including the facial nerve. Patient placed in supine position on OR table and anesthesia was administered and oral intubation with the glide scope was performed. Difficult but successful intubation due to severe trismus. Patient was then sterile prepped and draped. Local anesthesia administered in the oral cavity in the left maxillary vestibule and in the left temporal region of the skull. An 18 ga needle for aspiration in the left temporal space yielded purulent exudate. At this time our attention was directed to the left maxillary vestibule and incisions made. Sharp and blunt dissection into the pterygomandibular,masseteric spaces made and dissection superiorly to the left zygomatic arch. No return of exudate.At this time a left temporal incision first thr.ugh skin then down to the superficial layer of deep fascia. Widespread undermining of the tissue was done. At this time incision through the fascia easily expressed purulent exudate. Wide spreading of the tissues over the temporalis region expressed more pus. At this time entry to the deep space via through the temporalis muscle resulted in more exudate. Copious irrigation with sterile saline performed. Jennifer drains placed in both deep and superficial pockets of the temporal pouches. The I/o incisions were irrigated but no drains placed. The throat was suctioned ad patient extubated when breathing spontaneously. Taken to recovery in stable condition. All sponge and needle counts correct and estimated blood loss less then 25 cc Type of Anesthesia:: General Specimen's removed: None. Drains: 2 in left temporal region Estimated Blood Loss (mL): 25 cc Description of Procedure: see above
[2018-08-01 11:50] LABS: Bedside Glucose 158 mg/dL (70-110)
[2018-08-01] MEDS: Ondansetron 4 MG/2 ML Vial IV (13:56)
[2018-08-01] MEDS: Morphine 2 MG/ML Syringe IV (13:58)
[2018-08-01] MEDS: Heparin Injection (Vial) 5,000 UNIT/ML VIAL 5000 UNIT SC ×2 (14:00→21:45)
[2018-08-01 16:31] LABS: Bedside Glucose 361 mg/dL (70-110)
[2018-08-01] MEDS: Insulin Lispro 100 UNIT/ML INSULN.PEN SQ ×2 (16:33→21:45)
[2018-08-01] MEDS: Acetaminophen 325 MG Tablet 650 MG PO (21:03)
[2018-08-01] MEDS: Atorvastatin Calcium 40 MG Tablet PO (21:45)
[2018-08-01 22:46] LABS: Bedside Glucose 368 mg/dL (70-110)
[2018-08-02 02:32] VITALS: BP 142/73; PULSE 69; RESP 18; TEMP 36.6; O2SAT 99
[2018-08-02] MEDS: oxyCODONE 5 MG Tablet PO ×4 (02:44→20:55)
[2018-08-02] MEDS: Insulin Lispro 100 UNIT/ML INSULN.PEN SQ ×5 (02:45→20:58)
[2018-08-02 03:00] LABS: Bedside Glucose 261 mg/dL (70-110)
[2018-08-02] MEDS: Heparin Injection (Vial) 5,000 UNIT/ML VIAL 5000 UNIT SC ×3 (06:13→21:01)
[2018-08-02 06:50] LABS: Bedside Glucose 163 mg/dL (70-110)
--- NOTE | 2018-08-02 07:51 | PN_ITS ---
Patient Problems: Active and Suspected Problems Osteomyelitis, jaw acute (Acute) Subjective: Patient is a 52-year-old lady who presented with swelling involving the left jaw and assessment of left jaw osteomyelitis with associated abscess extending to the temporal area was made consultation was placed to maxillofacial surgery Dr. Reyes who did perform I and D of order component of the coronary clinical specialist on 08/01/2018 Objective: GENERAL: cooperative HEENT: Atraumatic; surgical dressing over the left masseter muscle EYES; Anicteric, Normal Conjunctiva NECK; supple, normal thyroid, RESPIRATORY: Diminished to auscultation bilaterally, CARDIOVASCULAR: Regular S1 S2, GI: soft, non-tender, normoactive bowel sounds, : No Renal angle tenderness; EXTREMITIES: No edema, no clubbing, no cyanosis. MUSCULOSKELETAL: No Joint Tenderness; NEURO: Awake; no lateralizing signs. SKIN: Erythema involving the left cheek PSYCH; Normal affect Vitals/I&O's: Vital Signs Temp Pulse Resp BP Pulse Ox 98 F 69 18 142/73 H 99 08/02/18 02:32 08/02/18 02:32 08/02/18 02:32 08/02/18 02:32 08/02/18 02:32 Oxygen Flow Rate (L/min) 2 Oxygen Delivery Method Room Air Weight: 96.5 kg Body Mass Index (BMI) 32.8 Intake and Output for Last 24 Hours 07/31/18 08/01/18 08/02/18 23:59 23:59 23:59 Intake Total 3017 / 3017 2717 / 2717 1000 / 1000 Output Total 4100 / 4100 3000 / 3000 Balance -1083 / -1083 -283 / -283 1000 / 1000 Microbiology Past 72 Hours 08/01/18 Unknown Abs - Aerobic & Anaerobic Swabs Gram Stain - Final 07/29/18 18:20 Blood Culture (Wb) - Right Hand Blood Culture - Preliminary No growth in 48 hours. 07/29/18 18:15 Blood Culture (Wb) - Left Forearm Blood Culture - Preliminary No growth in 48 hours. 07/30/18 12:30 Swab (Method) Nasal Screen MRSA/MSSA - Final 07/29/18 18:40 Wound Abcess - Other Gram Stain - Final 07/29/18 18:40 Wound Abcess - Other Wound Culture - Final Strep not Strep pneumo Strep not Strep pneumo#2 Gram positive stacie Laboratory Results 08/01/18 05:40: Hemoglobin A1c 6.3 08/01/18 09:25: POC Glucose 128 H 08/01/18 11:47: POC Glucose 158 H 08/01/18 16:28: POC Glucose 361 H 08/01/18 21:44: POC Glucose 368 H 08/02/18 02:38: POC Glucose 261 H 08/02/18 06:40: POC Glucose 163 H Current Medications Acetaminophen (Tylenol) 650 mg PO Q6H PRN PRN PRN Reason: Mild Pain (1-3)/Temp > 100.7 F Last Admin: 08/01/18 21:03 Dose: 650 mg Atorvastatin Calcium (Lipitor) 40 mg PO DAILY@2200 [facility] Last Admin: 08/01/18 21:45 Dose: 40 mg Dextrose (D50w Syringe) 0 gm IV X1 PRN; Protocol PRN Reason: Hypoglycemia Glimepiride (Amaryl) 4 mg PO DAILYCM [facility] Last Admin: 08/01/18 09:04 Dose: Not Given Glucagon () 1 mg IM .X1 PRN PRN Reason: Hypoglycemia Heparin Sodium (Porcine) (Heparin Na) 5,000 unit SC Q8 [facility] Last Admin: 08/02/18 06:13 Dose: 5,000 unit Ceftriaxone Sodium 2 gm/ (Sodium Chloride) 50 mls @ 100 mls/hr IV Q24 [facility] Last Admin: 08/01/18 10:08 Dose: 100 mls/hr Metronidazole (Flagyl) 500 mg in 100 mls @ 100 mls/hr IV Q8 [facility] Last Admin: 08/02/18 06:13 Dose: 100 mls/hr Insulin Human Lispro (Humalog Kwikpen (Bkc)) 0 unit SQ ACHS & 3AM [facility]; Protocol Last Admin: 08/02/18 06:43 Dose: 2 units Linagliptin (Tradjenta) 5 mg PO DAILY [facility] Last Admin: 08/01/18 13:34 Dose: Not Given Losartan Potassium (Cozaar) 50 mg PO DAILY [facility] Last Admin: 08/01/18 13:34 Dose: Not Given Morphine Sulfate () 2 mg IV Q3H PRN PRN PRN Reason: Severe pain (7-10/10) Last Admin: 08/01/18 13:58 Dose: 2 mg Ondansetron HCl (Zofran) 4 mg IV Q6H PRN PRN PRN Reason: NAUSEA/VOMITING Last Admin: 08/01/18 13:56 Dose: 4 mg Oxycodone HCl (Oxyir) 5 mg PO Q4H PRN PRN PRN Reason: Moderate Pain (4-6/10) Last Admin: 08/02/18 02:44 Dose: 5 mg Pantoprazole Sodium (Protonix) 20 mg PO DAILY [facility] Last Admin: 08/01/18 13:34 Dose: Not Given Sodium Chloride () 5 - 15 ml IV UD PRN PRN Reason: SALINE FLUSH Last Admin: 07/30/18 12:59 Dose: 10 ml Medical Necessity - Tobacco Use Smoking Status: Current every day smoker Tobacco Use: Cigarettes Assessment/Plan All Active Problems Osteomyelitis, jaw acute (Acute) Hypoglycemia (Acute) GERD (gastroesophageal reflux disease) (Acute) Dental abscess (Acute) Elevated serum creatinine (Acute) Patient is a 52-year-old lady with recent dental abscess surgery with tooth extraction who who presented with swelling involving the left jaw and assessment of left jaw osteomyelitis with associated abscess extending to the temporal area was made consultation was placed to maxillofacial surgery Dr. Reyes who did perform I and D of order component of the coronary clinical specialist on 08/01/2018 1. 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 Reyes who did perform I and D of order component of the coronary clinical specialist on 08/01/2018. Consultation was also placed infectious disease patient has been seen by Dr. Carrion who is currently managing patient's antibiotics 2. Hypertension-blood pressure controlled, home medications continued with dose adjustment as needed 3. Diabetes mellitus type II: Controlled on home regimen in addition to Accu- Cheks a.c. and at bedtime and covered with sliding scale insulin 4. Coronary artery disease with previous stent placement 5. Tobacco dependence counseled on cessation, offered nicotine patch for tobacco cravings 6. Dyslipidemia-patient is on statin therapy, continued at home dose 7. DVT prophylaxis SC heparin Active Medications Acetaminophen (Tylenol) 650 mg PO Q6H PRN PRN PRN Reason: Mild Pain (1-3)/Temp > 100.7 F Last Admin: 08/01/18 21:03 Dose: 650 mg Atorvastatin Calcium (Lipitor) 40 mg PO DAILY@2200 [facility] Last Admin: 08/01/18 21:45 Dose: 40 mg Dextrose (D50w Syringe) 0 gm IV X1 PRN; Protocol PRN Reason: Hypoglycemia Glimepiride (Amaryl) 4 mg PO DAILYCM [facility] Last Admin: 08/01/18 09:04 Dose: Not Given Glucagon () 1 mg IM .X1 PRN PRN Reason: Hypoglycemia Heparin Sodium (Porcine) (Heparin Na) 5,000 unit SC Q8 [facility] Last Admin: 08/02/18 06:13 Dose: 5,000 unit Ceftriaxone Sodium 2 gm/ (Sodium Chloride) 50 mls @ 100 mls/hr IV Q24 [facility] Last Admin: 08/01/18 10:08 Dose: 100 mls/hr Metronidazole (Flagyl) 500 mg in 100 mls @ 100 mls/hr IV Q8 [facility] Last Admin: 08/02/18 06:13 Dose: 100 mls/hr Insulin Human Lispro (Humalog Kwikpen (Bkc)) 0 unit SQ ACHS & 3AM [facility]; Protocol Last Admin: 08/02/18 06:43 Dose: 2 units Linagliptin (Tradjenta) 5 mg PO DAILY [facility] Last Admin: 08/01/18 13:34 Dose: Not Given Losartan Potassium (Cozaar) 50 mg PO DAILY [facility] Last Admin: 08/01/18 13:34 Dose: Not Given Morphine Sulfate () 2 mg IV Q3H PRN PRN PRN Reason: Severe pain (7-10/10) Last Admin: 08/01/18 13:58 Dose: 2 mg Ondansetron HCl (Zofran) 4 mg IV Q6H PRN PRN PRN Reason: NAUSEA/VOMITING Last Admin: 08/01/18 13:56 Dose: 4 mg Oxycodone HCl (Oxyir) 5 mg PO Q4H PRN PRN PRN Reason: Moderate Pain (4-6/10) Last Admin: 08/02/18 02:44 Dose: 5 mg Pantoprazole Sodium (Protonix) 20 mg PO DAILY [facility] Last Admin: 08/01/18 13:34 Dose: Not Given Sodium Chloride () 5 - 15 ml IV UD PRN PRN Reason: SALINE FLUSH Last Admin: 07/30/18 12:59 Dose: 10 ml Clinical Impression(s) from Imaging Studies Brain CT 07/29/18 18:58 IMPRESSION: Large thick-walled rim-enhancing mass which appears to be arising within the left coronary clinical specialist space extending into the soft tissues of the scalp lateral to the left temporal and frontal bones which may be consistent with abscess Electronically Signed: Adrián Rangel MD at 20:16 EDT , Service support , ADDENDUM: 07/29/182048 IMPRESSION: Large thick-walled rim-enhancing mass which appears to be arising within the left coronary clinical specialist space extending into the soft tissues of the scalp lateral to the left temporal and frontal bones which may be consistent with abscess N.B. : The above information has been verbally conveyed by Adrián Rangel MD to Carl Castañeda MD, on 07/29/2018 20:42:22 (ET). Electronically Signed: Adrián Rangel MD at 20:16 EDT , Service support , Soft Tissue Neck CT 07/29/18 18:58 IMPRESSION: Left facial soft tissue swelling with phlegmonous changes in the masseter and abscess arising in the left coronary clinical specialist space extending superiorly and laterally to the left temporal and frontal bones. No definitive evidence for acute osteomyelitis of the mandible although there are changes consistent with dental disease.. Incidental finding of complex nodule within the right lobe of the thyroid which may be further assessed with ultrasound Electronically Signed: Adrián Rangel MD at 20:35 EDT , Service support , Code Visit Inpatient E&M: 10112 Subs Hosp L3
[2018-08-02 08:30] VITALS: BP 127/58; PULSE 71; RESP 16; TEMP 36.9; O2SAT 98
[2018-08-02] MEDS: LINAGLIPTIN 5 MG TABLET PO (09:54)
[2018-08-02] MEDS: Glimepiride 4 MG Tablet PO (09:54)
[2018-08-02] MEDS: Pantoprazole Sodium 20 MG Tablet PO (09:54)
[2018-08-02 11:50] LABS: Bedside Glucose 268 mg/dL (70-110)
[2018-08-02 13:28] VITALS: BP 154/66; PULSE 93; RESP 16; TEMP 37; O2SAT 99
[2018-08-02] MEDS: Losartan Potassium 50 MG Tablet PO (13:32)
[2018-08-02] MEDS: Acetaminophen 325 MG Tablet 650 MG PO ×2 (13:43→23:16)
--- NOTE | 2018-08-02 15:40 | PCM.PN.ID ---
Patient Problems: Active and Suspected Problems Osteomyelitis, jaw acute (Acute) Subjective: Feeling better, face less sore and swollen. No fever, no n/v/d. - Physical Exam General: Alert, Cooperative Lungs: Clear to auscultation, Normal air movement Cardiovascular: Regular rate, No murmurs Abdomen: Soft, Non Tender, Non-Distended Extremities: No edema Skin: - - Drains in L temporal area, less facial swelling Vital Signs Temp Pulse Resp BP Pulse Ox 98.6 F 93 16 154/66 H 99 08/02/18 13:28 08/02/18 13:28 08/02/18 13:28 08/02/18 13:28 08/02/18 13:28 Oxygen Flow Rate (L/min) 2 Oxygen Delivery Method Room Air Weight: 96.5 kg Body Mass Index (BMI) 32.8 Intake and Output for Last 24 Hours 07/31/18 08/01/18 08/02/18 23:59 23:59 23:59 Intake Total 3017 / 3017 2717 / 2717 1237 / 1237 Output Total 4100 / 4100 3000 / 3000 Balance -1083 / -1083 -283 / -283 1237 / 1237 Microbiology Past 72 Hours 08/01/18 Unknown Gram Stain - Final Abs - Aerobic & Anaerobic Swabs Wound Culture - Preliminary No growth-Final to follow 07/29/18 18:20 Blood Culture - Preliminary Blood Culture (Wb) - Right Hand No growth in 48 hours. 07/29/18 18:15 Blood Culture - Preliminary Blood Culture (Wb) - Left Forearm No growth in 48 hours. 07/30/18 12:30 Nasal Screen MRSA/MSSA - Final Swab (Method) 07/29/18 18:40 Gram Stain - Final Wound Abcess - Other Wound Culture - Final Strep not Strep pneumo Strep not Strep pneumo#2 Gram positive stacie POC Glucose 08/02/18 08/02/18 08/02/18 11:33 06:40 02:38 POC Glucose 268 H 163 H 261 H 08/01/18 08/01/18 21:44 16:28 POC Glucose 368 H 361 H Medical Necessity - Tobacco Use Smoking Status: Current every day smoker Tobacco Use: Cigarettes Route of nutrition/ use of supplements: [] Nutritional Intake: [] IV Site: [] [place] Catheter: [] - Assessment/Plan Antibiotics: [] Assessment/Plan: [] L jaw osteo with associated abscess extending up to temporal area - cx with strep and GPR. MRSA pcr neg. Narrowed abx to ceftriaxone/flagyl due to unasyn shortage. Now s/p OR 08/[address] Reyes for I&D and drain placement. Discussed options for iv abx at discharge. Will follow.
[2018-08-02 17:01] LABS: Bedside Glucose 303 mg/dL (70-110)
--- NOTE | 2018-08-02 17:49 | PCM.PN.BLA ---
Progress Note Patient feeling better since I and D yesterday. Has dried purulent bloody discharge over left temporal region. She may get in shower and let warm water flow over the left temporal region. I prefer at least another day of observation and consider outpatient IV antibiotics. Trismus will continue for an undetermined times since the main muscles of mastication are involved. Oral incisions are without drainage on my inspection. Continue present management and consider discharge in next 24 hours with continue antibiotics per ID.
[2018-08-02 20:09] VITALS: BP 162/74; PULSE 81; RESP 17; TEMP 36; O2SAT 97
[2018-08-02] MEDS: Atorvastatin Calcium 40 MG Tablet PO (21:01)
[2018-08-02 21:21] LABS: Bedside Glucose 280 mg/dL (70-110)
[2018-08-03] MEDS: Insulin Lispro 100 UNIT/ML INSULN.PEN SQ (02:29)
[2018-08-03] MEDS: oxyCODONE 5 MG Tablet PO ×3 (02:35→15:11)
[2018-08-03 02:36] LABS: Bedside Glucose 210 mg/dL (70-110)
[2018-08-03 02:38] VITALS: BP 137/70; PULSE 73; RESP 17; TEMP 36.8; O2SAT 98
[2018-08-03] MEDS: Heparin Injection (Vial) 5,000 UNIT/ML VIAL 5000 UNIT SC (05:56)
[2018-08-03 07:00] LABS: Bedside Glucose 125 mg/dL (70-110)
--- NOTE | 2018-08-03 07:15 | PCM.PN.HOSP ---
Patient Problems: Active and Suspected Problems Osteomyelitis, jaw acute (Acute) Subjective: Patient seen complaining of severe left-sided headache. An order was given for patient to receive Toradol patient also complains of loose bowel movement. Objective: GENERAL: cooperative HEENT: Atraumatic; surgical dressing over the left masseter muscle EYES; Anicteric, Normal Conjunctiva NECK; supple, normal thyroid, RESPIRATORY: Diminished to auscultation bilaterally, CARDIOVASCULAR: Regular S1 S2, GI: soft, non-tender, normoactive bowel sounds, : No Renal angle tenderness; EXTREMITIES: No edema, no clubbing, no cyanosis. MUSCULOSKELETAL: No Joint Tenderness; NEURO: Awake; no lateralizing signs. SKIN: Erythema involving the left cheek PSYCH; Normal affect Vitals/I&O's: Vital Signs Temp Pulse Resp BP Pulse Ox 98.2 F 73 17 137/70 H 98 08/03/18 02:38 08/03/18 02:38 08/03/18 02:38 08/03/18 02:38 08/03/18 02:38 Oxygen Flow Rate (L/min) 2 Oxygen Delivery Method Room Air Weight: 96.5 kg Body Mass Index (BMI) 32.8 Intake and Output for Last 24 Hours 08/01/18 08/02/18 08/03/18 23:59 23:59 23:59 Intake Total 2717 / 2717 1992 534 / 534 Output Total 3000 / 3000 Balance -283 / -283 1992 534 / 534 Microbiology Past 72 Hours 08/01/18 Unknown Abs - Aerobic & Anaerobic Swabs Gram Stain - Final 08/01/18 Unknown Abs - Aerobic & Anaerobic Swabs Wound Culture - Preliminary No growth-Final to follow 07/29/18 18:20 Blood Culture (Wb) - Right Hand Blood Culture - Preliminary No growth in 48 hours. 07/29/18 18:15 Blood Culture (Wb) - Left Forearm Blood Culture - Preliminary No growth in 48 hours. 07/30/18 12:30 Swab (Method) Nasal Screen MRSA/MSSA - Final 07/29/18 18:40 Wound Abcess - Other Gram Stain - Final 07/29/18 18:40 Wound Abcess - Other Wound Culture - Final Strep not Strep pneumo Strep not Strep pneumo#2 Gram positive stacie Laboratory Results 08/02/18 11:33: POC Glucose 268 H 08/02/18 16:45: POC Glucose 303 H 08/02/18 20:52: POC Glucose 280 H 08/03/18 02:27: POC Glucose 210 H 08/03/18 06:43: POC Glucose 125 H Current Medications Acetaminophen (Tylenol) 650 mg PO Q6H PRN PRN PRN Reason: Mild Pain (1-3)/Temp > 100.7 F Last Admin: 08/02/18 23:16 Dose: 650 mg Atorvastatin Calcium (Lipitor) 40 mg PO DAILY@2200 [facility] Last Admin: 08/02/18 21:01 Dose: 40 mg Dextrose (D50w Syringe) 0 gm IV X1 PRN; Protocol PRN Reason: Hypoglycemia [facility] ([facility]) [facility] Last Admin: 08/02/18 09:54 Dose: 4 mg Glucagon () 1 mg IM .X1 PRN PRN Reason: Hypoglycemia Heparin Sodium (Porcine) (Heparin Na) 5,000 unit SC Q8 [facility] Last Admin: 08/03/18 05:56 Dose: 5,000 unit Ceftriaxone Sodium 2 gm/ (Sodium Chloride) 50 mls @ 100 mls/hr IV Q24 [facility] Last Admin: 08/02/18 09:54 Dose: 100 mls/hr Metronidazole (Flagyl) 500 mg in 100 mls @ 100 mls/hr IV Q8 [facility] Last Admin: 08/03/18 05:54 Dose: 100 mls/hr Insulin Human Lispro (Humalog Kwikpen (Bkc)) 0 unit SQ ACHS & 3AM [facility]; Protocol Last Admin: 08/03/18 06:44 Dose: Not Given Linagliptin (Tradjenta) 5 mg PO DAILY [facility] Last Admin: 08/02/18 09:54 Dose: 5 mg Losartan Potassium (Cozaar) 50 mg PO DAILY [facility] Last Admin: 08/02/18 13:32 Dose: 50 mg Morphine Sulfate () 2 mg IV Q3H PRN PRN PRN Reason: Severe pain (7-10/10) Last Admin: 08/01/18 13:58 Dose: 2 mg Nicotine (Nicoderm Cq (Pbkc)) 21 mg TRANSDERM. DAILY [facility] Last Admin: 08/02/18 21:36 Dose: 21 mg Ondansetron HCl (Zofran) 4 mg IV Q6H PRN PRN PRN Reason: NAUSEA/VOMITING Last Admin: 08/01/18 13:56 Dose: 4 mg Oxycodone HCl (Oxyir) 5 mg PO Q4H PRN PRN PRN Reason: Moderate Pain (4-6/10) Last Admin: 08/03/18 06:46 Dose: 5 mg Pantoprazole Sodium (Protonix) 20 mg PO DAILY [facility] Last Admin: 08/02/18 09:54 Dose: 20 mg Sodium Chloride () 5 - 15 ml IV UD PRN PRN Reason: SALINE FLUSH Last Admin: 07/30/18 12:59 Dose: 10 ml Medical Necessity - Tobacco Use Smoking Status: Current every day smoker Tobacco Use: Cigarettes Assessment/Plan All Active Problems Osteomyelitis, jaw acute (Acute) Hypoglycemia (Acute) GERD (gastroesophageal reflux disease) (Acute) Dental abscess (Acute) Elevated serum creatinine (Acute) Patient is a 52-year-old lady with recent dental abscess surgery with tooth extraction who who presented with swelling involving the left jaw and assessment of left jaw osteomyelitis with associated abscess extending to the temporal area was made consultation was placed to maxillofacial surgery Dr. Reyes who did perform I and D of order component of the assistant professor of spanish on 08/01/2018 1. 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 Reyes who did perform I and D of order component of the assistant professor of spanish on 08/01/2018. Consultation was also placed infectious disease patient has been seen by Dr. Carrion who is currently managing patient's antibiotics the patient remains on Rocephin and Flagyl 2. Hypertension-blood pressure controlled, home medications continued with dose adjustment as needed 3. Diabetes mellitus type II: Controlled on home regimen in addition to Accu-Cheks a.c. and at bedtime and covered with sliding scale insulin 4. Coronary artery disease with previous stent placement 5. Tobacco dependence counseled on cessation, offered nicotine patch for tobacco cravings 6. Dyslipidemia-patient is on statin therapy, continued at home dose 7. DVT prophylaxis SC heparin 8. Diarrhea do suspect side effect of antibiotics however if patient continues to experience loose bowel movement will have to rule out C. difficile Active Medications Acetaminophen (Tylenol) 650 mg PO Q6H PRN PRN PRN Reason: Mild Pain (1-3)/Temp > 100.7 F Last Admin: 08/02/18 23:16 Dose: 650 mg Atorvastatin Calcium (Lipitor) 40 mg PO DAILY@2200 [facility] Last Admin: 08/02/18 21:01 Dose: 40 mg Dextrose (D50w Syringe) 0 gm IV X1 PRN; Protocol PRN Reason: Hypoglycemia Glimepiride (Amaryl) 4 mg PO DAILYCM [facility] Last Admin: 08/03/18 09:11 Dose: 4 mg Glucagon () 1 mg IM .X1 PRN PRN Reason: Hypoglycemia Heparin Sodium (Porcine) (Heparin Na) 5,000 unit SC Q8 [facility] Last Admin: 08/03/18 05:56 Dose: 5,000 unit Ceftriaxone Sodium 2 gm/ (Sodium Chloride) 50 mls @ 100 mls/hr IV Q24 [facility] Last Admin: 08/03/18 09:12 Dose: 100 mls/hr Metronidazole (Flagyl) 500 mg in 100 mls @ 100 mls/hr IV Q8 [facility] Last Admin: 08/03/18 05:54 Dose: 100 mls/hr Insulin Human Lispro (Humalog Kwikpen (Bkc)) 0 unit SQ ACHS & 3AM [facility]; Protocol Last Admin: 08/03/18 06:44 Dose: Not Given Linagliptin (Tradjenta) 5 mg PO DAILY [facility] Last Admin: 08/03/18 09:11 Dose: 5 mg Losartan Potassium (Cozaar) 50 mg PO DAILY [facility] Last Admin: 08/03/18 08:27 Dose: 50 mg Morphine Sulfate () 2 mg IV Q3H PRN PRN PRN Reason: Severe pain (7-10/10) Last Admin: 08/01/18 13:58 Dose: 2 mg Nicotine (Nicoderm Cq (Pbkc)) 21 mg TRANSDERM. DAILY [facility] Last Admin: 08/03/18 08:26 Dose: 21 mg Ondansetron HCl (Zofran) 4 mg IV Q6H PRN PRN PRN Reason: NAUSEA/VOMITING Last Admin: 08/01/18 13:56 Dose: 4 mg Oxycodone HCl (Oxyir) 5 mg PO Q4H PRN PRN PRN Reason: Moderate Pain (4-6/10) Last Admin: 08/03/18 06:46 Dose: 5 mg Pantoprazole Sodium (Protonix) 20 mg PO DAILY [facility] Last Admin: 08/03/18 08:27 Dose: 20 mg Sodium Chloride () 5 - 15 ml IV UD PRN PRN Reason: SALINE FLUSH Last Admin: 08/03/18 08:27 Dose: 10 ml Code Visit Inpatient E&M: 14814 Subs Hosp L2
--- NOTE | 2018-08-03 07:31 | PN_ITS ---
Patient Problems: Active and Suspected Problems Osteomyelitis, jaw acute (Acute) Subjective: Patient seen complaining of severe left-sided headache. An order was given for patient to receive Toradol patient also complains of loose bowel movement. Objective: GENERAL: cooperative HEENT: Atraumatic; surgical dressing over the left masseter muscle EYES; Anicteric, Normal Conjunctiva NECK; supple, normal thyroid, RESPIRATORY: Diminished to auscultation bilaterally, CARDIOVASCULAR: Regular S1 S2, GI: soft, non-tender, normoactive bowel sounds, : No Renal angle tenderness; EXTREMITIES: No edema, no clubbing, no cyanosis. MUSCULOSKELETAL: No Joint Tenderness; NEURO: Awake; no lateralizing signs. SKIN: Erythema involving the left cheek PSYCH; Normal affect Vitals/I&O's: Vital Signs Temp Pulse Resp BP Pulse Ox 98.2 F 73 17 137/70 H 98 08/03/18 02:38 08/03/18 02:38 08/03/18 02:38 08/03/18 02:38 08/03/18 02:38 Oxygen Flow Rate (L/min) 2 Oxygen Delivery Method Room Air Weight: 96.5 kg Body Mass Index (BMI) 32.8 Intake and Output for Last 24 Hours 08/01/18 08/02/18 08/03/18 23:59 23:59 23:59 Intake Total 2717 / 2717 1992 534 / 534 Output Total 3000 / 3000 Balance -283 / -283 1992 534 / 534 Microbiology Past 72 Hours 08/01/18 Unknown Abs - Aerobic & Anaerobic Swabs Gram Stain - Final 08/01/18 Unknown Abs - Aerobic & Anaerobic Swabs Wound Culture - Preliminary No growth-Final to follow 07/29/18 18:20 Blood Culture (Wb) - Right Hand Blood Culture - Preliminary No growth in 48 hours. 07/29/18 18:15 Blood Culture (Wb) - Left Forearm Blood Culture - Preliminary No growth in 48 hours. 07/30/18 12:30 Swab (Method) Nasal Screen MRSA/MSSA - Final 07/29/18 18:40 Wound Abcess - Other Gram Stain - Final 07/29/18 18:40 Wound Abcess - Other Wound Culture - Final Strep not Strep pneumo Strep not Strep pneumo#2 Gram positive stacie Laboratory Results 08/02/18 11:33: POC Glucose 268 H 08/02/18 16:45: POC Glucose 303 H 08/02/18 20:52: POC Glucose 280 H 08/03/18 02:27: POC Glucose 210 H 08/03/18 06:43: POC Glucose 125 H Current Medications Acetaminophen (Tylenol) 650 mg PO Q6H PRN PRN PRN Reason: Mild Pain (1-3)/Temp > 100.7 F Last Admin: 08/02/18 23:16 Dose: 650 mg Atorvastatin Calcium (Lipitor) 40 mg PO DAILY@2200 [facility] Last Admin: 08/02/18 21:01 Dose: 40 mg Dextrose (D50w Syringe) 0 gm IV X1 PRN; Protocol PRN Reason: Hypoglycemia [facility]) [facility] Last Admin: 08/02/18 09:54 Dose: 4 mg Glucagon () 1 mg IM .X1 PRN PRN Reason: Hypoglycemia Heparin Sodium (Porcine) (Heparin Na) 5,000 unit SC Q8 [facility] Last Admin: 08/03/18 05:56 Dose: 5,000 unit Ceftriaxone Sodium 2 gm/ (Sodium Chloride) 50 mls @ 100 mls/hr IV Q24 [facility] Last Admin: 08/02/18 09:54 Dose: 100 mls/hr Metronidazole (Flagyl) 500 mg in 100 mls @ 100 mls/hr IV Q8 [facility] Last Admin: 08/03/18 05:54 Dose: 100 mls/hr Insulin Human Lispro (Humalog Kwikpen (Bkc)) 0 unit SQ ACHS & 3AM [facility]; Protocol Last Admin: 08/03/18 06:44 Dose: Not Given Linagliptin (Tradjenta) 5 mg PO DAILY [facility] Last Admin: 08/02/18 09:54 Dose: 5 mg Losartan Potassium (Cozaar) 50 mg PO DAILY [facility] Last Admin: 08/02/18 13:32 Dose: 50 mg Morphine Sulfate () 2 mg IV Q3H PRN PRN PRN Reason: Severe pain (7-10/10) Last Admin: 08/01/18 13:58 Dose: 2 mg Nicotine (Nicoderm Cq (Pbkc)) 21 mg TRANSDERM. DAILY [facility] Last Admin: 08/02/18 21:36 Dose: 21 mg Ondansetron HCl (Zofran) 4 mg IV Q6H PRN PRN PRN Reason: NAUSEA/VOMITING Last Admin: 08/01/18 13:56 Dose: 4 mg Oxycodone HCl (Oxyir) 5 mg PO Q4H PRN PRN PRN Reason: Moderate Pain (4-6/10) Last Admin: 08/03/18 06:46 Dose: 5 mg Pantoprazole Sodium (Protonix) 20 mg PO DAILY [facility] Last Admin: 08/02/18 09:54 Dose: 20 mg Sodium Chloride () 5 - 15 ml IV UD PRN PRN Reason: SALINE FLUSH Last Admin: 07/30/18 12:59 Dose: 10 ml Medical Necessity - Tobacco Use Smoking Status: Current every day smoker Tobacco Use: Cigarettes Assessment/Plan All Active Problems Osteomyelitis, jaw acute (Acute) Hypoglycemia (Acute) GERD (gastroesophageal reflux disease) (Acute) Dental abscess (Acute) Elevated serum creatinine (Acute) Patient is a 52-year-old lady with recent dental abscess surgery with tooth extraction who who presented with swelling involving the left jaw and assessment of left jaw osteomyelitis with associated abscess extending to the temporal area was made consultation was placed to maxillofacial surgery Dr. Reyes who did perform I and D of order component of the warehouse shift supervisor on 08/01/2018 1. 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 Reyes who did perform I and D of order component of the warehouse shift supervisor on 08/01/2018. Consultation was also placed infectious disease patient has been seen by Dr. Carrion who is currently managing patient's antibiotics the patient remains on Rocephin and Flagyl 2. Hypertension-blood pressure controlled, home medications continued with dose adjustment as needed 3. Diabetes mellitus type II: Controlled on home regimen in addition to Accu- Cheks a.c. and at bedtime and covered with sliding scale insulin 4. Coronary artery disease with previous stent placement 5. Tobacco dependence counseled on cessation, offered nicotine patch for tobacco cravings 6. Dyslipidemia-patient is on statin therapy, continued at home dose 7. DVT prophylaxis SC heparin 8. Diarrhea do suspect side effect of antibiotics however if patient continues to experience loose bowel movement will have to rule out C. difficile Active Medications Acetaminophen (Tylenol) 650 mg PO Q6H PRN PRN PRN Reason: Mild Pain (1-3)/Temp > 100.7 F Last Admin: 08/02/18 23:16 Dose: 650 mg Atorvastatin Calcium (Lipitor) 40 mg PO DAILY@2200 [facility] Last Admin: 08/02/18 21:01 Dose: 40 mg Dextrose (D50w Syringe) 0 gm IV X1 PRN; Protocol PRN Reason: Hypoglycemia Glimepiride (Amaryl) 4 mg PO DAILYCM [facility] Last Admin: 08/03/18 09:11 Dose: 4 mg Glucagon () 1 mg IM .X1 PRN PRN Reason: Hypoglycemia Heparin Sodium (Porcine) (Heparin Na) 5,000 unit SC Q8 [facility] Last Admin: 08/03/18 05:56 Dose: 5,000 unit Ceftriaxone Sodium 2 gm/ (Sodium Chloride) 50 mls @ 100 mls/hr IV Q24 [facility] Last Admin: 08/03/18 09:12 Dose: 100 mls/hr Metronidazole (Flagyl) 500 mg in 100 mls @ 100 mls/hr IV Q8 [facility] Last Admin: 08/03/18 05:54 Dose: 100 mls/hr Insulin Human Lispro (Humalog Kwikpen (Bkc)) 0 unit SQ ACHS & 3AM [facility]; Protocol Last Admin: 08/03/18 06:44 Dose: Not Given Linagliptin (Tradjenta) 5 mg PO DAILY [facility] Last Admin: 08/03/18 09:11 Dose: 5 mg Losartan Potassium (Cozaar) 50 mg PO DAILY [facility] Last Admin: 08/03/18 08:27 Dose: 50 mg Morphine Sulfate () 2 mg IV Q3H PRN PRN PRN Reason: Severe pain (7-10/10) Last Admin: 08/01/18 13:58 Dose: 2 mg Nicotine (Nicoderm Cq (Pbkc)) 21 mg TRANSDERM. DAILY [facility] Last Admin: 08/03/18 08:26 Dose: 21 mg Ondansetron HCl (Zofran) 4 mg IV Q6H PRN PRN PRN Reason: NAUSEA/VOMITING Last Admin: 08/01/18 13:56 Dose: 4 mg Oxycodone HCl (Oxyir) 5 mg PO Q4H PRN PRN PRN Reason: Moderate Pain (4-6/10) Last Admin: 08/03/18 06:46 Dose: 5 mg Pantoprazole Sodium (Protonix) 20 mg PO DAILY [facility] Last Admin: 08/03/18 08:27 Dose: 20 mg Sodium Chloride () 5 - 15 ml IV UD PRN PRN Reason: SALINE FLUSH Last Admin: 08/03/18 08:27 Dose: 10 ml Code Visit Inpatient E&M: [id number] Subs Hosp L2
[2018-08-03 08:21] VITALS: BP 149/65; PULSE 76; RESP 18; TEMP 36.5; O2SAT 97
[2018-08-03] MEDS: Ketorolac 15 MG/ML Vial IV (08:26)
[2018-08-03] MEDS: Losartan Potassium 50 MG Tablet PO (08:27)
[2018-08-03] MEDS: Pantoprazole Sodium 20 MG Tablet PO (08:27)
[2018-08-03] MEDS: 0.9% NaCl Peripheral Flush Adult/Peds IV (08:27)
[2018-08-03] MEDS: LINAGLIPTIN 5 MG TABLET PO (09:11)
[2018-08-03] MEDS: Glimepiride 4 MG Tablet PO (09:11)
--- NOTE | 2018-08-03 10:15 | PCM.PN.ID ---
Patient Problems: Active and Suspected Problems Osteomyelitis, jaw acute (Acute) Subjective: Feeling better, some headache, no fever, no n/v/d. - Physical Exam General: Alert, Cooperative, No apparent distress Lungs: Clear to auscultation, Normal air movement Cardiovascular: Regular rate, Regular Rhythm Abdomen: Soft, Non Tender, Non-Distended Skin: Ulcer/ Wound - tubes in place L zoroastrian Vital Signs Temp Pulse Resp BP Pulse Ox 97.7 F L 76 18 149/65 H 97 08/03/18 08:21 08/03/18 08:21 08/03/18 08:21 08/03/18 08:21 08/03/18 08:21 Oxygen Flow Rate (L/min) 2 Oxygen Delivery Method Room Air Weight: 96.5 kg Body Mass Index (BMI) 32.8 Intake and Output for Last 24 Hours 08/01/18 08/02/18 08/03/18 23:59 23:59 23:59 Intake Total 2717 / 2717 1992 534 / 534 Output Total 3000 / 3000 Balance -283 / -283 1992 534 / 534 Microbiology Past 72 Hours 08/01/18 Unknown Gram Stain - Final Abs - Aerobic & Anaerobic Swabs Wound Culture - Preliminary No growth-Final to follow 07/29/18 18:20 Blood Culture - Preliminary Blood Culture (Wb) - Right Hand No growth in 48 hours. 07/29/18 18:15 Blood Culture - Preliminary Blood Culture (Wb) - Left Forearm No growth in 48 hours. 07/30/18 12:30 Nasal Screen MRSA/MSSA - Final Swab (Method) 07/29/18 18:40 Gram Stain - Final Wound Abcess - Other Wound Culture - Final Strep not Strep pneumo Strep not Strep pneumo#2 Gram positive stacie POC Glucose 08/03/18 08/03/18 08/02/18 06:43 02:27 20:52 POC Glucose 125 H 210 H 280 H 08/02/18 08/02/18 16:45 11:33 POC Glucose 303 H 268 H Medical Necessity - Tobacco Use Smoking Status: Current every day smoker Tobacco Use: Cigarettes Route of nutrition/ use of supplements: [] Nutritional Intake: [] IV Site: [] [place] Catheter: [] - Assessment/Plan Antibiotics: [] Assessment/Plan: [] L jaw osteo with associated abscess extending up to temporal area - cx with strep and GPR. MRSA pcr neg. Narrowed abx to ceftriaxone/flagyl due to unasyn shortage. Now s/p OR 08/[address] Reyes for I&D and drain placement. Wrote for 2 weeks of ceftriaxone iv 2gm daily with po flagyl, then plan will be to switch to po if she is improving as an outpt. Will follow. D/w case specialist.
--- NOTE | 2018-08-03 11:45 | CASEMGMT ---
BENJI LEE received script for IV ATBs at discharge with planned discharge for today. BENJI CM in to discuss discharge plans with patient. BENJI LEE reviewed home IV ATBs with [facility] or outpatient infusions center. Patient would like [facility] and home IV ATBs. Patient would like [facility] and is agreeable to [facility] for home IV ATBs. BENJI LEE sent referral to [facility] and [facility]. CM will continue to follow this patient and plan for a safe discharge.
--- NOTE | 2018-08-03 11:51 | DCINST_ITS ---
- Discharge Diagnoses Current Active Problems: Current Active and Chronic Problems Osteomyelitis, jaw acute (Acute) You will use the following diet at home:: No restrictions Your food should be the consistency of: Regular Discharge Activity: Return to Normal Activity Allergies/Adverse Reactions: Allergies No Known Allergies Allergy (Verified 07/29/18 17:33) Medications to take at Discharge Losartan Potassium [Cozaar] 50 mg PO DAILY 07/02/18 Metformin HCl [Glucophage] 1,000 mg PO BIDCM 07/02/18 Omeprazole [Prilosec] 20 mg PO DAILY 07/02/18 Ticagrelor [Brilinta] 90 mg PO DAILY 07/02/18 Atorvastatin Calcium [Lipitor] 40 mg PO DAILY 07/29/18 Glimepiride 4 mg PO DAILY 07/29/18 Sitagliptin Phosphate [Januvia] 100 mg PO DAILY 07/29/18 Acetaminophen [Tylenol Tablet] 650 mg PO Q6H PRN PRN tablet 08/03/18 Ceftriaxone 2 gm IV Q24 14 Days #14 vial 08/03/18 Metronidazole [Flagyl] 500 mg PO TID #42 tablet 08/03/18 Oxycodone [Oxyir] 5 mg PO Q4H PRN PRN 5 Days #14 tablet 08/03/18 The following prescriptions were given: Ceftriaxone 2 gm IV Q24 14 Days #14 vial Metronidazole [Flagyl] 500 mg PO TID #42 tablet Oxycodone [Oxyir] 5 mg PO Q4H PRN PRN 5 Days #14 tablet PRN Reason: Moderate Pain (4-6/10) Primary Care Physician: Ted Denis MD [Primary Care Provider] - Please follow up with your Primary Care Physician in: in 5-7 days Test Results: Test results from this visit will be discussed in further detail at your follow- up appointment, if applicable. Please Follow Up With: Melchor Carrion MD When: in 2 weeks Please Follow Up With: Estuardo Reyes DDS When: in 2-3 days Proposed Discharge Date: 08/03/18
--- NOTE | 2018-08-03 11:54 | DS.PCM_ITS ---
Discharge Date and Diagnosis - Problem List Patient Problems: Active and Suspected Problems Osteomyelitis, jaw acute (Acute) Date of Admission: 07/29/18 Date of Discharge: 08/03/18 - Primary Discharge Diagnosis Active and Suspected Problems Osteomyelitis, jaw acute (Acute) - Secondary Discharge Diagnosis Chronic Problems Tobacco dependence due to cigarettes (Chronic) Type 2 diabetes mellitus (Chronic) Obesity (Chronic) Hypertension (Chronic) Hyperlipidemia (Chronic) Normochromic normocytic anemia (Chronic) History of PTCA (Chronic) 2 stents done at [place] in 2017 CAD (coronary artery disease) (Chronic) Hospital Course and Treatment Imaging Results: Clinical Impression(s) from Imaging Studies Brain CT 07/29/18 18:58 IMPRESSION: Large thick-walled rim-enhancing mass which appears to be arising within the left social work faculty member space extending into the soft tissues of the scalp lateral to the left temporal and frontal bones which may be consistent with abscess Electronically Signed: Adrián Rangel MD at 20:16 EDT , Service support , ADDENDUM: 07/29/182048 IMPRESSION: Large thick-walled rim-enhancing mass which appears to be arising within the left social work faculty member space extending into the soft tissues of the scalp lateral to the left temporal and frontal bones which may be consistent with abscess N.B. : The above information has been verbally conveyed by Adrián Rangel MD to Carl Castañeda MD, on 07/29/2018 20:42:22 (ET). Electronically Signed: Adrián Rangel MD at 20:16 EDT , Service support , Soft Tissue Neck CT 07/29/18 18:58 IMPRESSION: Left facial soft tissue swelling with phlegmonous changes in the masseter and abscess arising in the left social work faculty member space extending superiorly and laterally to the left temporal and frontal bones. No definitive evidence for acute osteomyelitis of the mandible although there are changes consistent with dental disease.. Incidental finding of complex nodule within the right lobe of the thyroid which may be further assessed with ultrasound Electronically Signed: Adrián Rangel MD at 20:35 EDT , Service support , Summary of Care Provided: Patient is a 52-year-old lady with recent dental abscess surgery with tooth extraction who who presented with swelling involving the left jaw and assessment of left jaw osteomyelitis with associated abscess extending to the temporal area was made consultation was placed to maxillofacial surgery Dr. Reyes who did perform I and D of order component of the social work faculty member on 08/01/2018 1. 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 Reyes who did perform I and D of order component of the social work faculty member on 08/01/2018. Consultation was also placed infectious disease patient has been seen by Dr. Carrion who did manage patient's antibiotics the patient was discharged home on Rocephin and Flagyl for 2 weeks with plans for patient to follow-up with Dr. Amy Carrion as well as patient's PCP. 2. Hypertension-blood pressure controlled, home medications continued with dose adjustment as needed 3. Diabetes mellitus type II: Controlled on home regimen in addition to Accu- Cheks a.c. and at bedtime and covered with sliding scale insulin 4. Coronary artery disease with previous stent placement 5. Tobacco dependence counseled on cessation, offered nicotine patch for tobacco cravings 6. Dyslipidemia-patient is on statin therapy, continued at home dose 7. DVT prophylaxis SC heparin Patient Problems: Active and Suspected Problems Osteomyelitis, jaw acute (Acute) Objective: GENERAL: cooperative HEENT: Atraumatic; EYES; Anicteric, Normal Conjunctiva NECK; supple, normal thyroid, RESPIRATORY: Diminished to auscultation bilaterally, CARDIOVASCULAR: Regular S1 S2, EXTREMITIES: No edema, no clubbing, MUSCULOSKELETAL: No Joint Tenderness; NEURO: Awake; no lateralizing signs. SKIN: Erythema involving the left cheek PSYCH; Normal affect - Physical Exam Vital Signs Temp Pulse Resp BP Pulse Ox 97.7 F L 76 18 149/65 H 97 08/03/18 08:21 08/03/18 08:21 08/03/18 08:21 08/03/18 08:21 08/03/18 08:21 Oxygen Flow Rate (L/min) 2 Oxygen Delivery Method Room Air Weight: 96.5 kg Body Mass Index (BMI) 32.8 Intake and Output for Last 24 Hours 08/01/18 08/02/18 08/03/18 23:59 23:59 23:59 Intake Total 2717 / 2717 1992 534 / 534 Output Total 3000 / 3000 Balance -283 / -283 1992 534 / 534 Microbiology Past 72 Hours 08/01/18 Unknown Gram Stain - Final Abs - Aerobic & Anaerobic Swabs Wound Culture - Preliminary No growth-Final to follow 07/29/18 18:20 Blood Culture - Preliminary Blood Culture (Wb) - Right Hand No growth in 48 hours. 07/29/18 18:15 Blood Culture - Preliminary Blood Culture (Wb) - Left Forearm No growth in 48 hours. 07/30/18 12:30 Nasal Screen MRSA/MSSA - Final Swab (Method) 07/29/18 18:40 Gram Stain - Final Wound Abcess - Other Wound Culture - Final Strep not Strep pneumo Strep not Strep pneumo#2 Gram positive stacie POC Glucose 08/03/18 08/03/18 08/02/18 06:43 02:27 20:52 POC Glucose 125 H 210 H 280 H 08/02/18 16:45 POC Glucose 303 H Discharge Diet: 1800 Calorie Control Diet Discharge Activity: Return to Normal Activity Home Medications: Medications to take at Discharge Losartan Potassium [Cozaar] 50 mg PO DAILY 07/02/18 Metformin HCl [Glucophage] 1,000 mg PO BIDCM 07/02/18 Omeprazole [Prilosec] 20 mg PO DAILY 07/02/18 Ticagrelor [Brilinta] 90 mg PO DAILY 07/02/18 Atorvastatin Calcium [Lipitor] 40 mg PO DAILY 07/29/18 Glimepiride 4 mg PO DAILY 07/29/18 Sitagliptin Phosphate [Januvia] 100 mg PO DAILY 07/29/18 Acetaminophen [Tylenol Tablet] 650 mg PO Q6H PRN PRN tablet 08/03/18 Ceftriaxone 2 gm IV Q24 14 Days #14 vial 08/03/18 Metronidazole [Flagyl] 500 mg PO TID #42 tablet 08/03/18 Oxycodone [Oxyir] 5 mg PO Q4H PRN PRN 5 Days #14 tablet 08/03/18 Following Prescrptions Were Given to Patient: Ceftriaxone 2 gm IV Q24 14 Days #14 vial Metronidazole [Flagyl] 500 mg PO TID #42 tablet Oxycodone [Oxyir] 5 mg PO Q4H PRN PRN 5 Days #14 tablet PRN Reason: Moderate Pain (4-6/10) Primary Care Physician: Ted Denis MD [Primary Care Provider] - Please follow up with your Primary Care Physician in: in 5-7 days Please Follow Up With: Melchor Carrion MD When: in 2 weeks Please Follow Up With: Estuardo Reyes DDS When: in 2-3 days Disposition: Home with Home Health Minutes spent on discharge:: 45 Medical Necessity - Tobacco Use Smoking Status: Current every day smoker Tobacco Use: Cigarettes Meaningful Use Info Meaningful Use Diagnoses (Choose all that apply): None applicable Code Visit Inpatient E&M: 12842 Disch Hosp
[2018-08-03 11:55] LABS: Bedside Glucose 126 mg/dL (70-110)
--- NOTE | 2018-08-03 12:49 | PCM.PN.BLA ---
Progress Note Patient seen resting comfortably in bed just had PIC line placed for outpatient antibiotics. Agree with discharge home and I will remove the drains in office. Patient will call office for appointment.
--- NOTE | 2018-08-03 13:45 | CASEMGMT ---
BENJI LEE called Niki at [facility] to confirm IV ATBs for start of care for 08/04/18 1000. Niki gave financials for atbs of out of pocket cost of $800 with IV ATB and supplies at $22/day. Niki to call and update patient. EBNJI LEE confirmed with [facility] and they are able to accept patient with start of care for 08/04/18 1000. BENJI LEE updated patient. BENJI LEE updated floor nurse Leona LEBLANC confirming discharge IV ATB and HHC setup.
[2018-08-03 13:58] VITALS: BP 136/46; PULSE 82; RESP 18; TEMP 37.1; O2SAT 99
[2018-08-03] MEDS: metroNIDAZOLE 500 MG Tablet PO (14:10)
[2018-08-03] MEDS: Acetaminophen 325 MG Tablet 650 MG PO (15:12)
--- NOTE | 2018-08-04 14:18 | CASEMGMT ---
BEJNI CM Discharge Follow-Up Phone Call. Lace: 9 Strata: 3 Discharge Date: 08/03/18 Adm Dx: Dental abscess Attempted discharge follow-up phone call. No answer. Message stating VM is full and cannot accept messages, so unable to leave message at this time. Felipe CARTAGENAN RN CM
== END 2018-08-03 15:20 | disposition home health service (06) | DRG 137 ==
LOC: ED 18:31 → MS3 21:44
PROVIDERS: Anesthesiology; Dentist Oral and Maxillofacial Surgery; Internal Medicine; Admitting Provider Hospitalist; Emergency Provider Emergency Medicine; Visit Provider Internal Medicine
PROC: 0J910ZZ Drainage of Face Subcutaneous Tissue and Fascia, Open Approach (ICD-10-PCS; principal; 2018-08-01 10:00)
DX: M27.2 Inflammatory conditions of jaws (principal); L02.01 Cutaneous abscess of face; I25.10 Atherosclerotic heart disease of native coronary artery without angina pectoris; E11.9 Type 2 diabetes mellitus without complications; F17.210 Nicotine dependence, cigarettes, uncomplicated; E78.5 Hyperlipidemia, unspecified; I10 Essential (primary) hypertension; Z79.84 Long term (current) use of oral hypoglycemic drugs; Z95.5 Presence of coronary angioplasty implant and graft; B95.4 Other streptococcus as the cause of diseases classified elsewhere
CPT/HCPCS: 36415; 70470; 70491; 80048; 80053; 80202; 82962; 83036; 83605; 85025; 85610; 85652; 85730; 86140; 87040; 87070; 87075; 87077; 87081; 87205; 93005; 99284; J7030; J7040; J7050; J7120; Q9967; A4216; J0696; J2405

== ENCOUNTER 2018-08-16 13:27 | Outpatient (RCR) | payer SELFPAY ==
[2018-08-01 09:32] VITALS: BMI 32.8
[2018-08-09 13:31] LABS: Erythrocyte Sedimentation Rate 81 mm/hr (0-30)
[2018-08-09 13:33] LABS: Hematocrit 29.8 % (37-47); Hemoglobin 9.9 g/dl (12.0-15.0); Mean Corp Hgb Conc 33.2 g/gl (32-36); Mean Corpuscular Hgb 30.3 pg (27.0-32.0); Mean Corpuscular Volume 91.1 fL (81-99); Mean Platelet Vol. 9.5 fl (6.2-12.0); Platelet Count 329 K/mm3 (150-450); RBC Distribution Width CV 14.5 % (11.6-14.6); RBC Distribution Width SD 45.1 fl (35.1-43.9); Red Blood Count 3.27 M/mm3 (4.2-5.4); Scan Indicated on CBC? Y/N NO; White Blood Count 10.8 K/mm3 (4.4-11.0)
[2018-08-09 13:38] LABS: Anion Gap 6 (5-15); BUN 21 mg/dL (7-18); BUN/Creat Ratio 24.5 RATIO (10-20); Calcium,Total 8.5 mg/dL (8.5-10.1); Chloride 107 mmol/L (98-107); Creatinine, Serum 0.86 mg/dL (0.55-1.02); EST Glomerular Filtration Rate 73 mL/min (>60); Est Glom Filt Rate - Afr Amer 89 mL/min (>60); Glucose 293 mg/dL (74-106); Potassium 4.5 mmol/L (3.5-5.1); Sodium Level 137 mmol/L (136-145)
== END 2018-08-27 23:59 ==
LOC: HHLAB 13:27
PROVIDERS: Referring Provider Internal Medicine Infectious Disease; Visit Provider Internal Medicine Infectious Disease
DX: E11.69 Type 2 diabetes mellitus with other specified complication (principal); M27.2 Inflammatory conditions of jaws; K04.7 Periapical abscess without sinus; B95.5 Unspecified streptococcus as the cause of diseases classified elsewhere; B96.89 Other specified bacterial agents as the cause of diseases classified elsewhere; I25.10 Atherosclerotic heart disease of native coronary artery without angina pectoris
CPT/HCPCS: 80048; 85027; 85652

== ENCOUNTER → 2018-08-16 20:31 | Outpatient (CLI) | payer SELFPAY ==
[2018-08-01 09:32] VITALS: BMI 32.8
[2018-08-16 20:41] LABS: Hematocrit 30.6 % (37-47); Hemoglobin 10.2 g/dl (12.0-15.0); Mean Corp Hgb Conc 33.3 g/gl (32-36); Mean Corpuscular Hgb 30.2 pg (27.0-32.0); Mean Corpuscular Volume 90.5 fL (81-99); Mean Platelet Vol. 9.6 fl (6.2-12.0); Platelet Count 265 K/mm3 (150-450); RBC Distribution Width CV 15.3 % (11.6-14.6); RBC Distribution Width SD 50.4 fl (35.1-43.9); Red Blood Count 3.38 M/mm3 (4.2-5.4); White Blood Count 7.8 K/mm3 (4.4-11.0)
[2018-08-16 20:42] LABS: Scan Indicated on CBC? Y/N NO
[2018-08-16 21:09] LABS: AST(SGOT) 10 U/L (15-37); Alanine Aminotransfer ALT/SGPT 14 U/L (13-56); Albumin, Serum 3.8 g/dL (3.2-5.0); Alkaline Phosphatase 81 U/L (45-117); Anion Gap 8 (5-15); BUN 24 mg/dL (7-18); BUN/Creat Ratio 24.6 RATIO (10-20); Calcium,Total 8.8 mg/dL (8.5-10.1); Chloride 110 mmol/L (98-107); Creatinine, Serum 0.97 mg/dL (0.55-1.02); EST Glomerular Filtration Rate 63 mL/min (>60); Est Glom Filt Rate - Afr Amer 77 mL/min (>60); Globulin 3.9 g/dL (2.2-4.2); Glucose 113 mg/dL (74-106); Potassium 4.1 mmol/L (3.5-5.1); Protein, Total 7.7 g/dL (6.4-8.2); Sodium Level 140 mmol/L (136-145)
[2018-08-16 21:22] LABS: Erythrocyte Sedimentation Rate 54 mm/hr (0-30)
== END ==
DX: M27.2 Inflammatory conditions of jaws (principal); E11.69 Type 2 diabetes mellitus with other specified complication; K04.7 Periapical abscess without sinus; B95.5 Unspecified streptococcus as the cause of diseases classified elsewhere; B96.89 Other specified bacterial agents as the cause of diseases classified elsewhere; I25.10 Atherosclerotic heart disease of native coronary artery without angina pectoris
CPT/HCPCS: 80053; 85027; 85652

== ENCOUNTER 2018-08-24 18:13 | Outpatient (RCR) | payer OTHER, SELFPAY ==
[2018-08-01 09:32] VITALS: BMI 32.8
[2018-08-24 18:25] LABS: Hematocrit 33.4 % (37-47); Hemoglobin 11.1 g/dl (12.0-15.0); Mean Corp Hgb Conc 33.2 g/gl (32-36); Mean Corpuscular Hgb 30.1 pg (27.0-32.0); Mean Corpuscular Volume 90.5 fL (81-99); Mean Platelet Vol. 10.3 fl (6.2-12.0); Platelet Count 233 K/mm3 (150-450); RBC Distribution Width SD 49.1 fl (35.1-43.9); Red Blood Count 3.69 M/mm3 (4.2-5.4); White Blood Count 7.5 K/mm3 (4.4-11.0)
[2018-08-24 18:28] LABS: Scan Indicated on CBC? Y/N NO
[2018-08-24 18:33] LABS: Erythrocyte Sedimentation Rate 59 mm/hr (0-30)
[2018-08-24 18:44] LABS: ALB/GLOB Ratio 0.9 RATIO (0.9-2.4); AST(SGOT) 11 U/L (15-37); Alanine Aminotransfer ALT/SGPT 16 U/L (13-56); Albumin, Serum 3.7 g/dL (3.2-5.0); Alkaline Phosphatase 79 U/L (45-117); Anion Gap 6 (5-15); BUN 25 mg/dL (7-18); BUN/Creat Ratio 22.1 RATIO (10-20); Calcium,Total 8.8 mg/dL (8.5-10.1); Chloride 107 mmol/L (98-107); Creatinine, Serum 1.13 mg/dL (0.55-1.02); EST Glomerular Filtration Rate 53 mL/min (>60); Est Glom Filt Rate - Afr Amer 65 mL/min (>60); Glucose 173 mg/dL (74-106); Potassium 3.7 mmol/L (3.5-5.1); Protein, Total 7.7 g/dL (6.4-8.2); Sodium Level 139 mmol/L (136-145)
== END 2018-08-27 23:59 ==
LOC: HHLAB 18:13
PROVIDERS: Referring Provider Internal Medicine Infectious Disease; Visit Provider Internal Medicine Infectious Disease
DX: E11.69 Type 2 diabetes mellitus with other specified complication (principal); M27.2 Inflammatory conditions of jaws
CPT/HCPCS: 80053; 85027; 85652

== ENCOUNTER → 2018-08-30 | Outpatient (CLI) | payer OTHER, SELFPAY ==
[2018-08-01 09:32] VITALS: BMI 32.8
[2018-08-30 19:45] LABS: Hematocrit 35.3 % (37-47); Hemoglobin 11.8 g/dl (12.0-15.0); Mean Corp Hgb Conc 33.4 g/gl (32-36); Mean Corpuscular Hgb 30.2 pg (27.0-32.0); Mean Corpuscular Volume 90.3 fL (81-99); Mean Platelet Vol. 10.2 fl (6.2-12.0); Platelet Count 184 K/mm3 (150-450); RBC Distribution Width CV 14.8 % (11.6-14.6); RBC Distribution Width SD 48.8 fl (35.1-43.9); Red Blood Count 3.91 M/mm3 (4.2-5.4); White Blood Count 7.9 K/mm3 (4.4-11.0)
[2018-08-30 19:49] LABS: Scan Indicated on CBC? Y/N NO
[2018-08-30 19:56] LABS: ALB/GLOB Ratio 0.9 RATIO (0.9-2.4); AST(SGOT) 15 U/L (15-37); Alanine Aminotransfer ALT/SGPT 20 U/L (13-56); Albumin, Serum 3.7 g/dL (3.2-5.0); Alkaline Phosphatase 93 U/L (45-117); Anion Gap 9 (5-15); BUN 31 mg/dL (7-18); BUN/Creat Ratio 30.1 RATIO (10-20); Calcium,Total 8.7 mg/dL (8.5-10.1); Chloride 105 mmol/L (98-107); Creatinine, Serum 1.03 mg/dL (0.55-1.02); EST Glomerular Filtration Rate 59 mL/min (>60); Erythrocyte Sedimentation Rate 59 mm/hr (0-30); Est Glom Filt Rate - Afr Amer 72 mL/min (>60); Globulin 4.3 g/dL (2.2-4.2); Glucose 207 mg/dL (74-106); Sodium Level 138 mmol/L (136-145)
== END | disposition home or self-care (01) ==
DX: E11.69 Type 2 diabetes mellitus with other specified complication (principal); M27.2 Inflammatory conditions of jaws
CPT/HCPCS: 80053; 85027; 85652

== ENCOUNTER → 2018-11-30 09:50 | Outpatient (CLI) | payer OTHER, SELFPAY ==
[2018-08-01 09:32] VITALS: BMI 32.8
[2018-11-30 11:20] LABS: Hemoglobin A1c 7.7 % (4.2-6.3)
[2018-11-30 11:31] LABS: ALB/GLOB Ratio 0.9 RATIO (0.9-2.4); AST(SGOT) 11 U/L (15-37); Alanine Aminotransfer ALT/SGPT 18 U/L (13-56); Albumin, Serum 3.8 g/dL (3.2-5.0); Alkaline Phosphatase 91 U/L (45-117); Anion Gap 7 (5-15); BUN 24 mg/dL (7-18); BUN/Creat Ratio 25.1 RATIO (10-20); Calcium,Total 9.4 mg/dL (8.5-10.1); Chloride 110 mmol/L (98-107); Creatinine, Serum 0.96 mg/dL (0.55-1.02); EST Glomerular Filtration Rate 65 mL/min (>60); Est Glom Filt Rate - Afr Amer 78 mL/min (>60); Globulin 4.1 g/dL (2.2-4.2); Glucose 153 mg/dL (74-106); Potassium 4.7 mmol/L (3.5-5.1); Protein, Total 7.9 g/dL (6.4-8.2); Sodium Level 142 mmol/L (136-145)
== END ==
PROVIDERS: Referring Provider Nurse Practitioner Family; Visit Provider Nurse Practitioner Family
DX: E11.65 Type 2 diabetes mellitus with hyperglycemia (principal)
CPT/HCPCS: 36415; 80053; 83036

== ENCOUNTER → 2019-01-06 15:59 | Outpatient (CLI) | payer OTHER, SELFPAY ==
[2018-08-01 09:32] VITALS: BMI 32.8
--- NOTE | 2019-01-06 16:02 | BI_ITS ---
BILATERAL DIGITAL MAMMOGRAM WITH TOMOSYNTHESIS: Mediolateraloblique and craniocaudal views demonstrate no evidence of dominant parenchymal masses. No cluster of microcalcifications or architectural distortion is seen. No evidence of skin thickening is identified. No comparison images are available. Breast Density: There are scattered areas of fibroglandular density. CAD was used to assist in final assessment. BI/SCREEN MAMM (CAD) W/LAINE BILAT IMPRESSION: Normal bilateral mammogram ASSESSMENT CATEGORY: FINAL ASSESSMENT: BI-RAD CATEGORY I (NEGATIVE) YEARLY MAMMOGRAPHY RECOMMENDED Approximately 10% of breast cancers are not detected by mammography. A normal mammogram should not delay biopsy of a clinically suspicious abnormality. [id number] Electronically Signed: Bruce Petty, at 17:12 EDT Tel , Service support ,
== END ==
PROVIDERS: Referring Provider Nurse Practitioner Family; Visit Provider Nurse Practitioner Family
DX: Z12.31 Encounter for screening mammogram for malignant neoplasm of breast (principal)
CPT/HCPCS: 77063; 77067

== ENCOUNTER → 2019-04-23 09:42 | Outpatient (CLI) | payer OTHER, SELFPAY ==
[2018-08-01 09:32] VITALS: BMI 32.8
[2019-04-23 10:28] LABS: Absolute Lymphocyte Count 2.58 X10^3/uL (0.83-4.51); Absolute Neutrophil Count 5.6 X10^3/uL (2.0-7.7); Basophil# 0.06 X10^3/uL; Basophil% 0.7 % (0-1); Eosinophil# 0.18 X10^3/uL; Hematocrit 37.6 % (37-47); Hemoglobin 12.5 g/dL (12.0-15.0); Lymphocyte # 2.58 X10^3/ul (4.0); Lymphocyte % 28.4 % (19-41); Mean Corp Hgb Conc 33.2 g/dL (32-36); Mean Corpuscular Hgb 31.2 pg (27.0-32.0); Mean Corpuscular Volume 93.8 fL (81-99); Mean Platelet Vol. 9.8 fl (6.2-12.0); Monocyte# 0.66 X10^3/uL; Monocyte% 7.3 % (0-10); NRBC Flagged by Analyzer 0 % (0-5); Neutrophil # 5.55 X10^3/uL (2.7-7.7); Neutrophil % 61.2 % (47-70); Platelet Count 247 K/mm3 (150-450); RBC Distribution Width CV 12.7 % (11.6-14.6); RBC Distribution Width SD 43.9 fl (35.1-43.9); Red Blood Count 4.01 M/mm3 (4.2-5.4); White Blood Count 9.1 K/mm3 (4.4-11.0)
[2019-04-23 11:00] LABS: Creatinine, Urine (random) < 13.00 mg/dL (NO RANGE EST.)
[2019-04-23 11:02] LABS: Hemoglobin A1c 6.9 % (4.2-6.3)
[2019-04-23 11:11] LABS: AST(SGOT) 12 U/L (15-37); Alanine Aminotransfer ALT/SGPT 20 U/L (13-56); Albumin, Serum 3.8 g/dL (3.2-5.0); Alkaline Phosphatase 60 U/L (45-117); Anion Gap 3 (5-15); BUN 24 mg/dL (7-18); BUN/Creat Ratio 23.3 RATIO (10-20); Calcium,Total 9.1 mg/dL (8.5-10.1); Chloride 110 mmol/L (98-107); Cholesterol 164 mg/dL (200); Creatinine, Serum 1.03 mg/dL (0.55-1.02); EST Glomerular Filtration Rate 59 mL/min (>60); Est Glom Filt Rate - Afr Amer 72 mL/min (>60); Globulin 3.8 g/dL (2.2-4.2); Glucose 88 mg/dL (74-106); High Density Lipoprotein 34 mg/dL; Potassium 4.5 mmol/L (3.5-5.1); Protein, Total 7.6 g/dL (6.4-8.2); Sodium Level 141 mmol/L (136-145); Triglycerides 161 mg/dL; Very Low Density Lipoprotein 32 mg/dL (5-40)
== END ==
PROVIDERS: Referring Provider Nurse Practitioner Family; Visit Provider Nurse Practitioner Family
DX: E11.65 Type 2 diabetes mellitus with hyperglycemia (principal); E78.2 Mixed hyperlipidemia
CPT/HCPCS: 36415; 80053; 80061; 82043; 82570; 83036; 85025

== ENCOUNTER → 2020-02-04 10:47 | Outpatient (CLI) | payer OTHER, SELFPAY ==
[2018-08-01 09:32] VITALS: BMI 32.8
[2020-02-04 12:21] LABS: Hemoglobin A1c 6.9 % (3.8-5.6)
[2020-02-04 12:24] LABS: Microalbumin:Creatinine Ratio 449.2 mg/g CRE (<30 mg/g CRE)
[2020-02-04 12:41] LABS: AST(SGOT) 15 U/L (15-37); Alanine Aminotransfer ALT/SGPT 24 U/L (13-56); Albumin, Serum 3.9 g/dL (3.2-5.0); Alkaline Phosphatase 72 U/L (45-117); Anion Gap 6 (5-15); BUN 25 mg/dL (7-18); BUN/Creat Ratio 24.5 RATIO (10-20); Chloride 108 mmol/L (98-107); Cholesterol 180 mg/dL (200); Creatinine, Serum 1.02 mg/dL (0.55-1.02); EST Glomerular Filtration Rate 60 mL/min (>60); Est Glom Filt Rate - Afr Amer 72 mL/min (>60); Globulin 3.8 g/dL (2.2-4.2); Glucose 93 mg/dL (74-106); High Density Lipoprotein 41 mg/dL; Potassium 4.5 mmol/L (3.5-5.1); Protein, Total 7.7 g/dL (6.4-8.2); Sodium Level 139 mmol/L (136-145); Triglycerides 196 mg/dL; Very Low Density Lipoprotein 39 mg/dL (5-40)
== END ==
PROVIDERS: Nurse Practitioner Family; Referring Provider Radiology Diagnostic Radiology; Visit Provider Radiology Diagnostic Radiology
DX: E11.42 Type 2 diabetes mellitus with diabetic polyneuropathy (principal)
CPT/HCPCS: 36415; 80053; 80061; 82043; 82570; 83036

== ENCOUNTER → 2020-08-11 10:32 | Outpatient (CLI) | payer OTHER, SELFPAY ==
[2018-08-01 09:32] VITALS: BMI 32.8
[2020-08-11 11:04] LABS: Absolute Neutrophil Count 5.6 X10^3/uL (2.0-7.7); Basophil# 0.04 X10^3/uL; Basophil% 0.5 % (0-1); Eosinophil# 0.13 X10^3/uL; Eosinophils% 1.7 % (0-5); Hematocrit 35.7 % (37-47); Hemoglobin 11.3 g/dL (12.0-15.0); Lymphocyte % 18.1 % (19-41); Mean Corp Hgb Conc 31.7 g/dL (32-36); Mean Corpuscular Hgb 29.2 pg (27.0-32.0); Mean Corpuscular Volume 92.2 fL (81-99); Mean Platelet Vol. 10.1 fl (6.2-12.0); Monocyte# 0.53 X10^3/uL; Monocyte% 6.9 % (0-10); NRBC Flagged by Analyzer 0 % (0-5); Neutrophil % 72.5 % (47-70); Platelet Count 252 K/mm3 (150-450); RBC Distribution Width CV 14.1 % (11.6-14.6); Red Blood Count 3.87 M/mm3 (4.2-5.4); White Blood Count 7.7 K/mm3 (4.4-11.0)
[2020-08-11 11:28] LABS: AST(SGOT) 17 U/L (15-37); Alanine Aminotransfer ALT/SGPT 16 U/L (13-56); Albumin, Serum 3.9 g/dL (3.2-5.0); Alkaline Phosphatase 55 U/L (45-117); Anion Gap 8 (5-15); BUN 25 mg/dL (7-18); BUN/Creat Ratio 18.9 RATIO (10-20); Calcium,Total 9.4 mg/dL (8.5-10.1); Chloride 105 mmol/L (98-107); Cholesterol 144 mg/dL (200); Creatinine, Serum 1.32 mg/dL (0.55-1.02); EST Glomerular Filtration Rate 44 mL/min (>60); Est Glom Filt Rate - Afr Amer 54 mL/min (>60); Globulin 3.9 g/dL (2.2-4.2); Glucose 94 mg/dL (74-106); High Density Lipoprotein 34 mg/dL; Potassium 4.3 mmol/L (3.5-5.1); Protein, Total 7.8 g/dL (6.4-8.2); Sodium Level 140 mmol/L (136-145); Triglycerides 108 mg/dL; Very Low Density Lipoprotein 22 mg/dL (5-40)
[2020-08-11 11:37] LABS: Hemoglobin A1c 7.1 % (3.8-5.6)
== END ==
PROVIDERS: Referring Provider Nurse Practitioner Family; Visit Provider Nurse Practitioner Family
DX: I10 Essential (primary) hypertension (principal); E11.42 Type 2 diabetes mellitus with diabetic polyneuropathy; E78.2 Mixed hyperlipidemia
CPT/HCPCS: 36415; 80053; 80061; 82043; 83036; 85025

== ENCOUNTER 2020-10-01 20:46 | Emergency (ER) | payer OTHER, SELFPAY ==
[2018-08-01 09:32] VITALS: BMI 32.8
[2020-10-01 20:46] VITALS: BP 124/71; PULSE 101; RESP 24; TEMP 36.3; O2SAT 97; BMI 32.2
[2020-10-01 21:33] VITALS: O2SAT 95
--- NOTE | 2020-10-01 21:42 | EDS_ITS ---
HPI History of Present Illness Chief Complaint: Cough Informant: patient Narrative Narrative: Patient is a 55-year-old female with a past medical history of CAD with stents, BRODIE, emphysema, diabetes who presents to the emergency department for shortness of breath and cough. Her symptoms have been present over the past week. She was seen initially at urgent care who put her on prednisone. She does not feel that this helped her at all. They did do a Covid test and a chest x-ray. These were both negative per her report. She has had a low-grade fever. She did take Excedrin today. She denies any chest pain. No abdominal pain or nausea/vomiting/diarrhea. No known sick contacts. She has not been vaccinated for Covid. She does continue to smoke. PFSH PFSH Home Medications Brilinta 90 mg PO DAILY 07/02/18 [History Last Taken 07/29/18] losartan [Cozaar] 50 mg PO DAILY 07/02/18 [History Last Taken 07/29/18] metformin 1,000 mg PO BIDCM 07/02/18 [History Last Taken 07/29/18] omeprazole 20 mg PO DAILY 07/02/18 [History Last Taken 07/29/18] Januvia 100 mg PO DAILY 07/29/18 [History Last Taken 07/29/18] glimepiride 4 mg PO DAILY 07/29/18 [History Last Taken 07/29/18] acetaminophen [Tylenol] 650 mg PO Q6H PRN PRN tablet 08/03/18 [Rx Last Taken Unknown] albuterol sulfate 1 puff INHALATION Q4H PRN PRN 10/01/20 [History Last Taken Unknown] pravastatin 40 mg DAILY 10/01/20 [History Last Taken Unknown] umeclidinium-vilanterol [Anoro Ellipta] 1 inh INHALATION DAILY 10/01/20 [History Last Taken Unknown] azithromycin [Zithromax Z-Alonso] See Rx Instructions .ROUTE .COMPLEX #6 tab 10/02/20 [Rx Last Taken Unknown] prednisone 40 mg PO DAILY 5 Days #10 tab 10/02/20 [Rx Last Taken Unknown] Allergy/AdvReac Type Severity Reaction Status Date / Time No Known Allergies Allergy Verified 10/01/20 20:49 Social History Smoking Status: Current every day smoker tobacco type: cigarettes ROS ROS ED Constitutional Constitutional ED: Denies chills Eyes Eyes: Denies change in vision ENT ENT ED: Denies epistaxis or rhinorrhea Cardiovascular Cardiovascular: Denies chest pain or palpitations Respiratory/Chest Respiratory/Chest: Reports cough, dyspnea, dyspnea on exertion and sputum Gastrointestinal Gastrointestinal: Denies abdominal pain, diarrhea, nausea or vomiting Genitourinary Genitourinary ED: Denies dysuria, hematuria or urinary frequency Musculoskeletal Musculoskeletal: Denies back pain or neck pain Integumentary Denies rash Neurologic Neurologic: Denies dizziness, headache(s) or weakness EXAM Physical Exam Const Vital Signs: 10/01/20 20:46 10/01/20 21:33 Temperature 97.3 F L Temperature Source Temporal Pulse Rate 101 H Respiratory Rate 24 H Respiratory Effort Non-Labored Short of Breath Respiratory Depth Normal Respiratory Pattern Normal Blood Pressure 124/71 H Blood Pressure Mean 88 Pulse Ox 97 Oxygen Delivery Method Room Air Room Air Positive well nourished and well developed General Appearance ED: well developed and NAD HEENT Reports normocephalic, head/scalp atraumatic and moist mucous membranes Eyes PERRL and EOMs intact bilaterally Neck no lymphadenopathy and supple General: Negative for tenderness Chest Wall inspection of chest normal Resp normal respiratory effort Resp Narrative: Mild wheezing and rhonchi appreciated throughout. Auscultation: Negative for rales Cardio regular rate, regular rhythm and no murmurs GI normal to inspection, nondistended, normoactive bowel sounds and non-tender Palpation: soft; Negative for guarding or rebound tenderness present Back/Spine no CVA tenderness Extremity normal to inspection Extremity Narrative: Right leg has 1+ pitting edema. She states that this is chronic as she has previous surgery in that leg. General Extremety ED: Negative for tenderness Neuro no sensory deficits noted Sensorium / Orientation: alert Motor Exam: strength 5/5 throughout Psych mental status grossly normal Skin no rashes or lesions noted MDM MDM MDM Narrative Medical decision making narrative: Patient presents the emergency department for cough with sputum production and shortness of breath. On arrival to the emergency department she is satting 97% on room air. Borderline tachycardic. She is mildly tachypneic. Will check x-ray, basic lab work. We will start a DuoNeb breathing treatment. Patient's chest x-ray did not reveal any pneumonia, pulmonary vascular congestion or effusions. She does have a mild elevation of her white blood cell count but has been on steroids recently. Her hemoglobin is 10.7. Patient's troponin is within normal limits. Her BNP is elevated at 1700. Physical exam not consistent with a CHF exacerbation but she will eventually need an ultrasound of her heart. Patient is feeling much better after the breathing treatment. Did ambulate the patient she did not desaturate past 93%. She is comfortable with trialing home treatment. We will write another prescription for prednisone and a Z-Alonso. She does have breathing treatments at home she is to continue. If her symptoms worsen at any point she needs to return back to [facility] emergency department for further evaluation and management. She otherwise is to follow-up with her PCP. She understands and is agreeable to plan. All questions were answered. Discharge Plan Triage Chief Complaint: Cough ED Provider: Tomer Choi Dx/Rx/DC Orders Clinical Impression: COPD exacerbation Instructions: ED COPD Flare Prescriptions: New azithromycin [Zithromax Z-Alonso] 250 mg tablet See Rx Instructions .ROUTE .COMPLEX Qty: 6 RF: 0 prednisone 20 mg tablet 40 mg PO DAILY 5 Days Qty: 10 RF: 0 No Action losartan [Cozaar] 50 MG tablet 50 mg PO DAILY RF: 0 metformin 1,000 MG tablet 1,000 mg PO BIDCM RF: 0 omeprazole 20 MG capsule 20 mg PO DAILY RF: 0 Brilinta 90 MG tablet 90 mg PO DAILY RF: 0 glimepiride 4 tablet 4 mg PO DAILY RF: 0 Januvia 100 MG tablet 100 mg PO DAILY RF: 0 acetaminophen [Tylenol] 325 MG tablet 650 mg PO Q6H PRN PRN (Reason: Mild Pain (1-3)/Temp > 100.7 F) RF: 0 pravastatin 40 mg tablet 40 mg DAILY RF: 0 albuterol sulfate 90 mcg/actuation HFA aerosol inhaler 1 puff INHALATION Q4H PRN PRN (Reason: Shortness Of Breath) RF: 0 Anoro Ellipta 62.5-25 mcg/actuation blister with device 1 inh INHALATION DAILY RF: 0 Stand Alone Forms: ED Work / School Excuse Primary Care Provider: Ted Denis Referrals: Ted Denis MD [Primary Care Provider] - 2 Days Disposition Disposition: Home, Self Care Discharge Date/Time: 10/02/20 00:55
--- NOTE | 2020-10-01 21:51 | EKG12_ITS ---
Test Reason : SOB Blood Pressure : / mmHG Vent. Rate : 092 BPM Atrial Rate : 092 BPM P-R Int : 158 ms QRS Dur : 082 ms QT Int : 360 ms P-R-T Axes : 068 005 115 degrees QTc Int : 445 ms Normal sinus rhythm Nonspecific T wave abnormality Abnormal ECG Confirmed by KAREN CORNELIUS, ANNA ([id number]), website/blog editor ELROY SHI ([id number]) on 10/03/2020 1:58:52 PM Referred By: AURE Confirmed By:ANNA JONES MD
[2020-10-01] MEDS: Ipratropium/Albuterol Sulfate 3 ML AMPUL.NEB INHALATION (22:00)
[2020-10-01 22:03] VITALS: O2SAT 100
[2020-10-01 22:04] VITALS: PULSE 95; RESP 14
[2020-10-01 22:07] LABS: Absolute Lymphocyte Count 2.18 X10^3/uL (0.83-4.51); Absolute Neutrophil Count 11.1 X10^3/uL (2.0-7.7); Basophil# 0.04 X10^3/uL; Basophil% 0.3 % (0-1); Eosinophil# 0.11 X10^3/uL; Eosinophils% 0.8 % (0-5); Hematocrit 33.6 % (37-47); Hemoglobin 10.7 g/dL (12.0-15.0); Lymphocyte # 2.18 X10^3/ul (0.83-4.51); Lymphocyte % 15.1 % (19-41); Mean Corp Hgb Conc 31.8 g/dL (32-36); Mean Corpuscular Hgb 27.2 pg (27.0-32.0); Mean Corpuscular Volume 85.5 fL (81-99); Mean Platelet Vol. 10.3 fl (6.2-12.0); Monocyte# 0.99 X10^3/uL; Monocyte% 6.8 % (0-10); NRBC Flagged by Analyzer 0 % (0-5); Neutrophil # 11.07 X10^3/uL (2.7-7.7); Neutrophil % 76.4 % (47-70); Platelet Count 217 K/mm3 (150-450); RBC Distribution Width CV 14.5 % (11.6-14.6); RBC Distribution Width SD 45.5 fl (35.1-43.9); Red Blood Count 3.93 M/mm3 (4.2-5.4); White Blood Count 14.5 K/mm3 (4.4-11.0)
--- NOTE | 2020-10-01 22:24 | RAD_ITS ---
STUDY: X-RAY CHEST REASON FOR EXAM: Female, 55 years old. chest pain TECHNIQUE: Single AP portable view of the chest. COMPARISON: 07/09/2018 FINDINGS: The lungs are clear and expanded. There is no demonstrated pleural abnormality. Normal size heart. Normal mediastinum and jigna. Normal visualized pulmonary arteries. Normal visualized aortic arch and descending thoracic aorta. Normal visualized thoracic spine. Normal visualized ribs, clavicles, and shoulders. There is no demonstrated abnormality of the visualized soft tissue structures of the upper abdomen. RAD/Chest 1 View (Portable) IMPRESSION: Normal x-ray examination of the chest. Electronically Signed: Homero Raygoza DO at 23:08 EDT Tel , Service support ,
[2020-10-01 22:25] LABS: Anion Gap 6 (5-15); BUN 24 mg/dL (7-18); BUN/Creat Ratio 25.5 RATIO (10-20); Calcium,Total 8.9 mg/dL (8.5-10.1); Chloride 107 mmol/L (98-107); Creatinine, Serum 0.94 mg/dL (0.55-1.02); EST Glomerular Filtration Rate 65 mL/min (>60); Est Glom Filt Rate - Afr Amer 79 mL/min (>60); Estimated Creatinine Clearance 64.99 ml/min; Glucose 170 mg/dL (74-106); Sodium Level 139 mmol/L (136-145); Troponin-I HS 33.7 pg/mL (3.0-53.7)
[2020-10-02 00:40] VITALS: BP 128/73; PULSE 97; RESP 25; O2SAT 94
== END 2020-10-02 00:55 | disposition home or self-care (01) ==
PROVIDERS: Emergency Provider Emergency Medicine
DX: J44.1 Chronic obstructive pulmonary disease with (acute) exacerbation (principal); F17.210 Nicotine dependence, cigarettes, uncomplicated; E11.9 Type 2 diabetes mellitus without complications; G47.33 Obstructive sleep apnea (adult) (pediatric); I25.10 Atherosclerotic heart disease of native coronary artery without angina pectoris; Z79.52 Long term (current) use of systemic steroids; Z79.84 Long term (current) use of oral hypoglycemic drugs; Z79.899 Other long term (current) drug therapy; Z95.5 Presence of coronary angioplasty implant and graft
CPT/HCPCS: 71045; 80048; 83880; 84484; 85025; 93005; 94640; 99284; A4216

== ENCOUNTER → 2020-12-05 18:05 | Outpatient (CLI) | payer OTHER, SELFPAY ==
--- NOTE | 2020-12-05 18:25 | RAD_ITS ---
STUDY: X-RAY CHEST REASON FOR EXAM: Female, 55 years old. SHORTNESS OF BREATH TECHNIQUE: PA and lateral chest radiographs COMPARISON: 10/01/2020 FINDINGS: The lungs are clear and expanded. There is no demonstrated pleural abnormality. Normal size heart. Normal mediastinum and jigna. Normal visualized pulmonary arteries. Normal visualized aortic arch and descending thoracic aorta. There are diffuse degenerative changes of the visualized thoracic spine. Normal visualized ribs, clavicles, and shoulders. There is no demonstrated abnormality of the visualized soft tissue structures of the upper abdomen. RAD/Chest PA and Lateral IMPRESSION: Normal x-ray examination of the chest. Electronically Signed: Lyle Portillo MD at 4:50 EDT Tel , Service support ,
--- NOTE | 2020-12-05 18:25 | RAD_ITS ---
STUDY: X-RAY - ABDOMEN/PELVIS REASON FOR EXAM: Female, 55 years old. DISTENTION TECHNIQUE: Upright and supine AP abdomen radiographs COMPARISON: None. FINDINGS: Normal visualized lung bases. There is an unremarkable bowel gas pattern. There is no demonstrated free abdominal air. The visualized liver, spleen and kidneys are grossly normal in size and morphology. There are calcified phleboliths in the pelvis. There are diffuse degenerative changes of the visualized lumbar spine. RAD/Abd Inc Decub and/or Erect IMPRESSION: Nonobstructive bowel gas pattern. No acute abnormal finding in the abdomen or pelvis. Electronically Signed: Lyle Portillo MD at 4:52 EDT Tel , Service support ,
== END ==
PROVIDERS: Visit Provider Nurse Practitioner Family
DX: R06.02 Shortness of breath (principal); R14.0 Abdominal distension (gaseous)
CPT/HCPCS: 71046; 74019

== ENCOUNTER → 2020-12-06 13:56 | Outpatient (CLI) | payer OTHER, SELFPAY ==
[2020-12-06 14:20] LABS: Absolute Lymphocyte Count 1.18 X10^3/uL (0.83-4.51); Absolute Neutrophil Count 7.5 X10^3/uL (2.0-7.7); Basophil# 0.05 X10^3/uL; Basophil% 0.5 % (0-1); Eosinophil# 0.07 X10^3/uL; Eosinophils% 0.7 % (0-5); Hematocrit 37.5 % (37-47); Hemoglobin 11.9 g/dL (12.0-15.0); Lymphocyte # 1.18 X10^3/ul (0.83-4.51); Lymphocyte % 12.3 % (19-41); Mean Corp Hgb Conc 31.7 g/dL (32-36); Mean Corpuscular Hgb 27.9 pg (27.0-32.0); Monocyte% 8.3 % (0-10); NRBC Flagged by Analyzer 0 % (0-5); Neutrophil # 7.46 X10^3/uL (2.7-7.7); Neutrophil % 77.8 % (47-70); Platelet Count 230 K/mm3 (150-450); RBC Distribution Width CV 17.3 % (11.6-14.6); RBC Distribution Width SD 55.9 fl (35.1-43.9); Red Blood Count 4.26 M/mm3 (4.2-5.4); White Blood Count 9.6 K/mm3 (4.4-11.0)
[2020-12-06 14:47] LABS: ALB/GLOB Ratio 0.9 RATIO (0.9-2.4); AST(SGOT) 28 U/L (15-37); Alanine Aminotransfer ALT/SGPT 29 U/L (13-56); Albumin, Serum 3.5 g/dL (3.2-5.0); Alkaline Phosphatase 87 U/L (45-117); Anion Gap 7 (5-15); BUN 32 mg/dL (7-18); BUN/Creat Ratio 26.2 RATIO (10-20); Calcium,Total 9.6 mg/dL (8.5-10.1); Chloride 103 mmol/L (98-107); Creatinine, Serum 1.22 mg/dL (0.55-1.02); EST Glomerular Filtration Rate 48 mL/min (>60); Est Glom Filt Rate - Afr Amer 59 mL/min (>60); Glucose 160 mg/dL (74-106); Potassium 3.9 mmol/L (3.5-5.1); Protein, Total 7.5 g/dL (6.4-8.2); Sodium Level 137 mmol/L (136-145)
== END ==
PROVIDERS: Referring Provider Nurse Practitioner Family; Visit Provider Nurse Practitioner Family
DX: R06.02 Shortness of breath (principal)
CPT/HCPCS: 36415; 80053; 83880; 85025

== ENCOUNTER 2020-12-13 17:16 | Inpatient (IN) | payer OTHER, SELFPAY ==
[2020-12-13 17:18] VITALS: BP 111/73; PULSE 143; RESP 22; TEMP 35.8; O2SAT 99; BMI 34.8
--- NOTE | 2020-12-13 18:30 | EKG12_ITS ---
Test Reason : SOB Blood Pressure : / mmHG Vent. Rate : 145 BPM Atrial Rate : 145 BPM P-R Int : 118 ms QRS Dur : 090 ms QT Int : 272 ms P-R-T Axes : 066 003 160 degrees QTc Int : 422 ms Sinus tachycardia Castillo- Septal infarct , age undetermined , cannot be excluded Abnormal ECG Confirmed by KAREN CORNELIUS, ANNA ([id number]), film editor supervisor MIRLANDE ELAINE ([id number]) on 12/14/2020 1:11:18 PM Referred By: DENISE/RITU Confirmed By:ANNA JONES MD
--- NOTE | 2020-12-13 18:43 | RAD_ITS ---
STUDY: X-RAY CHEST REASON FOR EXAM: Female, 55 years old. chest pain TECHNIQUE: AP portable COMPARISON: 12/05/2020. FINDINGS: Nonspecific elevation of the right hemidiaphragm however the lungs are clear.. There is no demonstrated pleural abnormality. Normal size heart. Normal mediastinum and jigna. Normal visualized pulmonary arteries. Normal visualized aortic arch and descending thoracic aorta. Dorsal spine demonstrates degenerative change. Normal visualized ribs, clavicles, and shoulders. There is no demonstrated abnormality of the visualized soft tissue structures of the upper abdomen. RAD/Chest 1 View (Portable) IMPRESSION: No acute cardiopulmonary pathology Electronically Signed: Adrián Rangel MD at 19:34 EDT , Service support ,
[2020-12-13 19:08] LABS: Anion Gap 5 (5-15); BUN 33 mg/dL (7-18); BUN/Creat Ratio 25.4 RATIO (10-20); Calcium,Total 8.7 mg/dL (8.5-10.1); Chloride 99 mmol/L (98-107); EST Glomerular Filtration Rate 45 mL/min (>60); Est Glom Filt Rate - Afr Amer 54 mL/min (>60); Estimated Creatinine Clearance 46.99 ml/min; Glucose 320 mg/dL (74-106); Potassium 4.4 mmol/L (3.5-5.1); Sodium Level 133 mmol/L (136-145); Troponin-I HS 54 pg/mL (3.0-54.0)
[2020-12-13 19:33] LABS: Absolute Lymphocyte Count 1.59 X10^3/uL (0.83-4.51); Absolute Neutrophil Count 6.8 X10^3/uL (2.0-7.7); Basophil# 0.05 X10^3/uL; Basophil% 0.5 % (0-1); Eosinophil# 0.12 X10^3/uL; Eosinophils% 1.3 % (0-5); Hemoglobin 11.5 g/dL (12.0-15.0); Lymphocyte # 1.59 X10^3/ul (0.83-4.51); Lymphocyte % 17.2 % (19-41); Mean Corp Hgb Conc 31.1 g/dL (32-36); Mean Corpuscular Hgb 27.2 pg (27.0-32.0); Mean Corpuscular Volume 87.5 fL (81-99); Mean Platelet Vol. 10.2 fl (6.2-12.0); Monocyte# 0.62 X10^3/uL; Monocyte% 6.7 % (0-10); NRBC Flagged by Analyzer 0 % (0-5); Neutrophil # 6.81 X10^3/uL (2.7-7.7); Neutrophil % 73.8 % (47-70); Platelet Count 194 K/mm3 (150-450); RBC Distribution Width CV 16.9 % (11.6-14.6); RBC Distribution Width SD 54.1 fl (35.1-43.9); Red Blood Count 4.23 M/mm3 (4.2-5.4); White Blood Count 9.2 K/mm3 (4.4-11.0)
[2020-12-13 20:59] VITALS: BP 91/68; PULSE 144; RESP 15; O2SAT 100
[2020-12-13 21:05] VITALS: O2SAT 100
--- NOTE | 2020-12-13 21:15 | ED.VIS.DYS ---
HPI History of Present Illness Chief Complaint: Shortness of Breath Narrative Narrative: Patient presenting with shortness of breath. She states she cannot hardly walk about 10 feet. She states that her chest does not hurt. She was seen by her physician outpatient last week and states that her legs were swollen and her abdomen was swollen. It sounds as though she got Lasix and improved in this regard however now she is extremely short of breath. Patient states that they are planning to do an outpatient echocardiogram once insurance will cover this. Patient was sent in out of concern for CHF exacerbation. PFSH PFSH Medical History Chest pain COPD (chronic obstructive pulmonary disease) CPAP (continuous positive airway pressure) dependence Diabetes Migraines Myocardial infarct Smoker Home Medications Brilinta 90 mg PO BID 07/02/18 [History Last Taken 12/13/20] losartan [Cozaar] 50 mg PO DAILY 07/02/18 [History Last Taken 12/12/20] metformin 1,000 mg PO BIDCM 07/02/18 [History Last Taken 12/13/20] omeprazole 20 mg PO DAILY 07/02/18 [History Last Taken 12/13/20] Januvia 100 mg PO DAILY 07/29/18 [History Last Taken 12/13/20] glimepiride 4 mg PO DAILY 07/29/18 [History Last Taken 12/13/20] acetaminophen [Tylenol] 650 mg PO Q6H PRN PRN tablet 08/03/18 [Rx Last Taken Unknown] albuterol sulfate 1 puff INHALATION Q4H PRN PRN 10/01/20 [History Last Taken Unknown] pravastatin 40 mg PO QHS 10/01/20 [History Last Taken 12/12/20] umeclidinium-vilanterol [Anoro Ellipta] 1 inh INHALATION DAILY 10/01/20 [History Last Taken 12/13/20] furosemide 80 mg PO DAILY 12/13/20 [History Last Taken 12/13/20] sertraline 50 mg PO DAILY 12/13/20 [History Last Taken 12/13/20] Allergy/AdvReac Type Severity Reaction Status Date / Time No Known Allergies Allergy Verified 12/13/20 17:17 Family History (Updated 12/14/20 @ 01:[address] Tomer Pierre MD) Other Heart disease Surgical History (Updated 12/14/20 @ 01:[address] Tomer Pierre MD) H/O removal of cyst Social History Smoking Status: Current every day smoker tobacco type: cigarettes ROS ROS ED Constitutional Constitutional ED: Denies chills or fever(s) Eyes Eyes: Denies blurry vision or diplopia ENT ENT ED: Denies rhinorrhea or sore throat Cardiovascular Cardiovascular: Reports palpitations and racing heartbeat; Denies chest pain Respiratory/Chest Respiratory/Chest: Reports dyspnea and dyspnea on exertion Gastrointestinal Gastrointestinal: Denies abdominal pain, nausea or vomiting Genitourinary Genitourinary ED: Denies dysuria or hematuria Musculoskeletal Musculoskeletal: Denies arthralgias or myalgias Integumentary Denies abscess or rash Neurologic Neurologic: Reports headache(s) EXAM Physical Exam Const Vital Signs: 12/13/20 17:18 12/13/20 20:59 12/13/20 21:05 Temperature 96.5 F L Temperature Source Temporal Pulse Rate 143 H 144 H Respiratory Rate 22 H 15 Respiratory Effort Respiratory Depth Respiratory Pattern Blood Pressure 111/73 91/68 Blood Pressure Mean 85 75 Pulse Ox 99 100 100 Oxygen Delivery Method Room Air Room Air Room Air 12/13/20 21:32 12/13/20 22:24 12/13/20 23:09 Temperature Temperature Source Pulse Rate 143 H 143 H Respiratory Rate 20 H 15 Respiratory Effort Short of Breath Respiratory Depth Normal Respiratory Pattern Normal Blood Pressure 100/77 97/72 Blood Pressure Mean 84 80 Pulse Ox 97 98 Oxygen Delivery Method Room Air 12/14/20 00:24 Temperature Temperature Source Pulse Rate 144 H Respiratory Rate 14 Respiratory Effort Respiratory Depth Respiratory Pattern Blood Pressure 118/80 Blood Pressure Mean 92 Pulse Ox 97 Oxygen Delivery Method Room Air Positive well nourished General Appearance ED: NAD HEENT Reports moist mucous membranes Negative for atraumatic Eyes PERRL and EOMs intact bilaterally Resp normal respiratory effort and clear to auscultation bilaterally GI non-tender Palpation: soft Neuro oriented x3 and CN's II-XII intact bilaterally Sensorium / Orientation: alert Psych mental status grossly normal Skin no wounds Rashes: no rashes MDM MDM MDM Narrative Medical decision making narrative: Patient presenting with shortness of breath. He states he has a cough which is similar to her emphysema. She denies any new or changing cough. She denies fever or chills. She does admit to shortness of breath on exertion. Unremarkable. Patient was recently put on a water pill to diurese her. Her legs are still slightly swollen. It got better. She states her legs feel heavy as well. Her abdominal swelling had improved. It sounds that she lost about 12 pounds since the last time she was seen. She does not remember being tachycardic. I obtained an EKG which shows a sinus tachycardia with a ventricular rate of 145 bpm. Chest x-ray on my interpretation shows no acute cardiopulmonary process and the radiologist does agree. Patient's troponin is 54 initially. I will repeat a delta troponin. Patient's D-dimer was elevated at almost 4 and I did obtain a CTA of the chest which showed a right-sided pleural effusion without PEs or dissection. There was concern for groundglass opacities. Patient second troponin is 56. I think based on her CT scan and her recent history she is probably and CHF. Discussed with hospitalist for admission. 1. Shortness of breath 2. CHF 3. Tachycardia 4. Elevated troponin Lab Data Labs: Laboratory Results - last 24 hr 12/13/20 12/13/20 12/13/20 18:40 18:40 18:40 WBC Cancelled Corrected WBC Cancelled RBC Cancelled Hgb Cancelled Hct Cancelled MCV Cancelled MCH Cancelled MCHC Cancelled RDW Std Deviation Cancelled RDW Coeff of [place] Cancelled Plt Count Cancelled MPV Cancelled Immature Gran % (Auto) Cancelled Neut % (Auto) Cancelled Lymph % (Auto) Cancelled [place] % (Auto) Cancelled Eos % (Auto) Cancelled Baso % (Auto) Cancelled Absolute Neuts (auto) Cancelled Absolute Lymphs (auto) Cancelled Total Counted Cancelled Neutrophils % (Manual) Cancelled Band Neutrophils % Cancelled Lymphocytes % (Manual) Cancelled Monocytes % (Manual) Cancelled Eosinophils % (Manual) Cancelled Basophils % (Manual) Cancelled Metamyelocytes % Cancelled Myelocytes % Cancelled Promyelocytes % Cancelled Blast Cells % Cancelled Plasma Cell % (Manual) Cancelled Other Cells % Cancelled Nucleated RBC % Cancelled Nucleated RBCs/100 WBC Cancelled Differential Comment Cancelled Diff Path Review Cancelled Hypersegmented Neuts Cancelled Atypical Lymphocytes Cancelled Reactive Lymphocytes Cancelled Smudge Cells Cancelled Toxic Granulation Cancelled Toxic Vacuolation Cancelled Dohle Bodies Cancelled Myranda Rods Cancelled Platelet Estimate Cancelled Plt Morphology Comment Cancelled RBC Morphology Cancelled Polychromasia Cancelled Hypochromasia Cancelled Poikilocytosis Cancelled Basophilic Stippling Cancelled Anisocytosis Cancelled Microcytosis Cancelled Macrocytosis Cancelled Spherocytes Cancelled Sickle Cells Cancelled Target Cells Cancelled Tear Drop Cells Cancelled Ovalocytes Cancelled Stomatocytes Cancelled [place] Bodies Cancelled [place] Cells Cancelled Bite Cells Cancelled Crenated Cell Cancelled Acanthocytes (Spur) Cancelled Rouleaux Cancelled Schistocytes Cancelled D-Dimer Quant (PE/DVT) 3.89 H* Sodium 133 L Potassium 4.4 Chloride 99 Carbon Dioxide 29.0 Anion Gap 5 BUN 33 H Creatinine 1.30 H Estim Creat Clear Calc 46.99 Est GFR (MDRD) Af Amer 54 L Est GFR (MDRD) Non-Af 45 L BUN/Creatinine Ratio 25.4 H Glucose 320 H Calcium 8.7 Troponin I High Sens 54 12/13/20 12/14/20 19:26 00:24 WBC 9.2 Corrected WBC RBC 4.23 Hgb 11.5 L Hct 37.0 MCV 87.5 MCH 27.2 MCHC 31.1 L RDW Std Deviation 54.1 H RDW Coeff of [place]ble 16.9 H Plt Count 194 MPV 10.2 Immature Gran % (Auto) 0.500 Neut % (Auto) 73.8 H Lymph % (Auto) 17.2 L [place] % (Auto) 6.7 Eos % (Auto) 1.3 Baso % (Auto) 0.5 Absolute Neuts (auto) 6.8 Absolute Lymphs (auto) 1.59 Total Counted Neutrophils % (Manual) Band Neutrophils % Lymphocytes % (Manual) Monocytes % (Manual) Eosinophils % (Manual) Basophils % (Manual) Metamyelocytes % Myelocytes % Promyelocytes % Blast Cells % Plasma Cell % (Manual) Other Cells % Nucleated RBC % 0 Nucleated RBCs/100 WBC Differential Comment Diff Path Review Hypersegmented Neuts Atypical Lymphocytes Reactive Lymphocytes Smudge Cells Toxic Granulation Toxic Vacuolation Dohle Bodies Myranda Rods Platelet Estimate Plt Morphology Comment RBC Morphology Polychromasia Hypochromasia Poikilocytosis Basophilic Stippling Anisocytosis Microcytosis Macrocytosis Spherocytes Sickle Cells Target Cells Tear Drop Cells Ovalocytes Stomatocytes [place] Bodies [place] Cells Bite Cells Crenated Cell Acanthocytes (Spur) Rouleaux Schistocytes D-Dimer Quant (PE/DVT) Sodium Potassium Chloride Carbon Dioxide Anion Gap BUN Creatinine Estim Creat Clear Calc Est GFR (MDRD) Af Amer Est GFR (MDRD) Non-Af BUN/Creatinine Ratio Glucose Calcium Troponin I High Sens 56 H Radiography Diagnostic Testing: Radiology Impression Chest X-Ray 12/13/20 18:43 IMPRESSION: No acute cardiopulmonary pathology Electronically Signed: Adrián Rangel MD at 19:34 EDT , Service support , Chest CTA 12/13/20 21:35 IMPRESSION: ASHD. No evidence for pulmonary embolus Moderate sized right pleural effusion and consolidation of the right lower lobe.. Subtle patchy groundglass opacity in both lower lobes of uncertain etiology or significance. Recommend clinical correlation to include possibility of mild Covid 19 pneumonia Electronically Signed: Adrián Rangel MD at 22:49 EDT , Service support , Discharge Plan Disposition Disposition: [facility] Discharge Date/Time: 12/14/20 01:55
[2020-12-13 21:27] LABS: D-Dimer Quantitative (DVT/PE) 3.89 FEU/ug/m (0.27-0.49)
--- NOTE | 2020-12-13 21:35 | CT_ITS ---
STUDY: CTA CHEST REASON FOR EXAM: Female, 55 years old. dyspnea RADIATION DOSAGE (If Supplied By Facility): CTDIvol = ( 15.73 ) mGy, DLP = ( 496.77 ) mGycm TECHNIQUE: The examination was performed with the intravenous administration of IV 100mL Isovue-370. Post-processing of the angiographic images was performed, with multiplanar reformation and 3D reconstruction. Individualized dose optimization techniques were used for this CT. COMPARISON: None. FINDINGS: Normal enhancement of the main pulmonary artery and right and left pulmonary arteries. Normal enhancement of the bilateral peripheral pulmonary arteries. There is no demonstrated pulmonary embolism. Mild atherosclerotic changes of the aorta without evidence for aneurysm There is no demonstrated aortic dissection. The heart is mildly enlarged and there is multivessel coronary artery calcification Normal mediastinum. Normal hilar regions. Normal visualized trachea and bronchi. The lungs are well expanded. There is very mild bilateral patchy groundglass density of uncertain etiology. Moderate-sized right pleural effusion with mild consolidation of the right lower lobe. Normal chest wall structures. Dorsal spine demonstrates degenerative change. Normal visualized upper abdomen. CT/CTA Chest W/WO Contrast IMPRESSION: ASHD. No evidence for pulmonary embolus Moderate sized right pleural effusion and consolidation of the right lower lobe.. Subtle patchy groundglass opacity in both lower lobes of uncertain etiology or significance. Recommend clinical correlation to include possibility of mild Covid 19 pneumonia Electronically Signed: Adrián Rangel MD at 22:49 EDT , Service support ,
[2020-12-13 22:24] VITALS: BP 100/77; PULSE 143; RESP 20; O2SAT 97
[2020-12-13] MEDS: 0.9% Normal Saline 1,000 ML 999 ML IV (23:07)
[2020-12-13 23:09] VITALS: BP 97/72; PULSE 143; RESP 15; O2SAT 98
[2020-12-14] VITALS (22 sets, daily range): BP systolic 76–118; BP diastolic 55–80; PULSE 88–144; RESP 14–20; TEMP 35.8–37.7; O2SAT 94–100; BMI 34.5
[2020-12-14] MEDS: Acetaminophen 500 MG Tablet 1000 MG PO (00:18)
[2020-12-14] MEDS: Metoprolol Tartrate 5 MG/5 ML Vial IV (00:23)
[2020-12-14 01:12] LABS: Troponin-I HS 56 pg/mL (3.0-54.0)
--- NOTE | 2020-12-14 01:31 | HP.PCM.HOS_ITS ---
[facility] - General General Date of Admission: 12/14/20 HPI Narrative DENZEL WALLS, is a 55 F with a significant history of tobacco abuse; CAD status post stent and diabetes mellitus who presents to emergency department with 1 week history of progressively worsening shortness of breath. Associated for symptoms is orthopnea and paroxysmal nocturnal dyspnea. Shortness of breath increases with exertion. She reports fatigue. She reports swelling of the bilateral legs. At baseline her right leg is swollen but now is more swollen than usual. Her PCP started her on Lasix which have helped somewhat with the swelling. She reported recently she was diagnosed with COPD. She reports although she had gained some weight with Lasix as she has gone back to her previous weight. Also patient reports swelling in her abdomen. Outpatient the plan was to do echocardiogram. Patient was waiting on insurance authorization. Patient was tachycardic at the emergency department so she was given IV Lopressor that reduced her blood pressure. PFSH Medical History Cardiomyopathy Chest pain COPD (chronic obstructive pulmonary disease) CPAP (continuous positive airway pressure) dependence Diabetes Migraines Myocardial infarct Smoker Home Medications Brilinta 90 mg PO BID 07/02/18 [History Last Taken 12/13/20] losartan [Cozaar] 50 mg PO DAILY 07/02/18 [History Last Taken 12/12/20] metformin 1,000 mg PO BIDCM 07/02/18 [History Last Taken 12/13/20] omeprazole 20 mg PO DAILY 07/02/18 [History Last Taken 12/13/20] Januvia 100 mg PO DAILY 07/29/18 [History Last Taken 12/13/20] glimepiride 4 mg PO DAILY 07/29/18 [History Last Taken 12/13/20] acetaminophen [Tylenol] 650 mg PO Q6H PRN PRN tablet 08/03/18 [Rx Last Taken Unknown] albuterol sulfate 1 puff INHALATION Q4H PRN PRN 10/01/20 [History Last Taken Unknown] pravastatin 40 mg PO QHS 10/01/20 [History Last Taken 12/12/20] umeclidinium-vilanterol [Anoro Ellipta] 1 inh INHALATION DAILY 10/01/20 [History Last Taken 12/13/20] furosemide 80 mg PO DAILY 12/13/20 [History Last Taken 12/13/20] sertraline 50 mg PO DAILY 12/13/20 [History Last Taken 12/13/20] Allergy/AdvReac Type Severity Reaction Status Date / Time No Known Allergies Allergy Verified 12/13/20 17:17 Family History Other Heart disease Surgical History H/O removal of cyst Social History Smoking Status: Current every day smoker tobacco type: cigarettes ROS ROS Narrative Constitutional: Denies anorexia. Reports fatigue. Eyes: Denies blurry vision, change in eye color, change in vision, discharge from eye(s), double vision, erythema, eye pain, loss of vision or other HEENT: Denies abnormal hearing, dysphagia, ear pain, epistaxis, headache(s), hearing loss, nasal congestion, nasal discharge, post nasal drip, sinus pressure, sore throat or other Cardiovascular: Denies chest pain or palpitations. Reports dyspnea on exertion, orthopnea and paroxysmal nocturnal dyspnea Respiratory/Chest: Reports cough (chronic), phlegm production (chronic), shortness of breath. Gastrointestinal: Denies abdominal pain, coffee ground emesis, constipation, diarrhea, dyspepsia, hematemesis, hematochezia, loose stools, melena, nausea, vomiting or other Genitourinary: Denies burning urination, difficulty urinating, dysuria, hematuria, nocturia, urinary frequency, urinary hesitancy, urinary incontinence, urinary urgency or other Musculoskeletal: Denies arthralgias, back pain, joint pain, joint stiffness, joint swelling, myalgias, neck pain or other Neurologic: Denies abnormal gait, abnormal speech, confusion, disequilibrium, dizziness, focal weakness, headache(s), numbness, paresthesias, seizure-like activity, seizures, syncope, tingling, tremor(s) or other Psychiatric: Denies anxiety, depression, homicidal ideation, suicidal ideation or other Endocrinology: Denies change in body appearance, cold intolerance, excessive sweating, heat intolerance, polydipsia, polyuria or other Hematologic/Lymphatic: Denies anemia, easy bleeding, easy bruising, lymphadenopathy or other Integumentary: Denies rashes Allergic/Immunologic: Denies rhinitis, hives, eczema, asthma or other Vital Signs Vital Signs Vital Signs: 12/13/20 17:18 12/13/20 20:59 12/13/20 21:05 Temperature 96.5 F L Temperature Source Temporal Pulse Rate 143 H 144 H Respiratory Rate 22 H 15 Respiratory Effort Respiratory Depth Respiratory Pattern Blood Pressure 111/73 91/68 Blood Pressure Mean 85 75 Pulse Ox 99 100 100 Oxygen Delivery Method Room Air Room Air Room Air 12/13/20 21:32 12/13/20 22:24 12/13/20 23:09 Temperature Temperature Source Pulse Rate 143 H 143 H Respiratory Rate 20 H 15 Respiratory Effort Short of Breath Respiratory Depth Normal Respiratory Pattern Normal Blood Pressure 100/77 97/72 Blood Pressure Mean 84 80 Pulse Ox 97 98 Oxygen Delivery Method Room Air 12/14/20 00:24 Temperature Temperature Source Pulse Rate 144 H Respiratory Rate 14 Respiratory Effort Respiratory Depth Respiratory Pattern Blood Pressure 118/80 Blood Pressure Mean 92 Pulse Ox 97 Oxygen Delivery Method Room Air Weight Weight: 100.9 kg Body Mass Index (BMI) 34.8 Physical Exam Narrative Physical exam: General: Well-nourished, well-developed. Head: Normocephalic, atraumatic, no tenderness Eyes: PERRLA, EOMI ENT, no trauma, moist mucous membranes, no rhinorrhea Neck: Nontender, full range of motion, no spinal tenderness, deformities, step- off CVS: Regular rate and rhythm. S1-S2 present. No murmur, gallop or rub. Respiratory : clear to auscultation bilaterally, chest wall nontender, no wheezing Abdomen: Soft, nontender, nondistended, normal bowel sounds, no masses : Deferred Back: Nontender, no CVA tenderness, no midline spinal tenderness, deformities, step-offs Extremities: Bilateral swelling of legs and feet with right worse than left. Skin: Normal color, no trauma, abrasions Neuro: Alert, oriented, cranial nerves II through XII grossly intact. Psychiatry: Normal mood. Normal affect. Not depressed. Not anxious. Results Lab / Micro Data Result Diagrams: 12/14/20 04:46 12/14/20 04:46 Labs: Laboratory Results - last 24 hr 12/13/20 18:40: WBC Cancelled, Corrected WBC Cancelled, RBC Cancelled, Hgb Cancelled, Hct Cancelled, MCV Cancelled, MCH Cancelled, MCHC Cancelled, RDW Std Deviation Cancelled, RDW Coeff of Hum[place] Cancelled, Plt Count Cancelled, MPV Cancelled, Immature Gran % (Auto) Cancelled, Neut % (Auto) Cancelled, Lymph % (Auto) Cancelled, [place] % (Auto) Cancelled, Eos % (Auto) Cancelled, Baso % (Auto) Cancelled, Absolute Neuts (auto) Cancelled, Absolute Lymphs (auto) Cancelled, To jessica Counted Cancelled, Neutrophils % (Manual) Cancelled, Band Neutrophils % Cancelled, Lymphocytes % (Manual) Cancelled, Monocytes % (Manual) Cancelled, Eosinophils % (Manual) Cancelled, Basophils % (Manual) Cancelled, Metamyelocytes % Cancelled, Myelocytes % Cancelled, Promyelocytes % Cancelled, Blast Cells % Cancelled, Plasma Cell % (Manual) Cancelled, Other Cells % Cancelled, Nucleated RBC % Cancelled, Nucleated RBCs/100 WBC Cancelled, Differential Comment Cancelled, Diff Path Review Cancelled, Hypersegmented Neuts Cancelled, Atypical Lymphocytes Cancelled, Reactive Lymphocytes Cancelled, Smudge Cells Cancelled, Toxic Granulation Cancelled, Toxic Vacuolation Cancelled, Dohle Bodies Cancel led, Myranda Rods Cancelled, Platelet Estimate Cancelled, Plt Morphology Comment Cancelled, RBC Morphology Cancelled, Polychromasia Cancelled, Hypochromasia Cancelled, Poikilocytosis Cancelled, Basophilic Stippling Cancelled, Anisocytosis Cancelled, Microcytosis Cancelled, Macrocytosis Cancelled, Spher ocytes Cancelled, Sickle Cells Cancelled, Target Cells Cancelled, Tear Drop Cells Cancelled, Ovalocytes Cancelled, Stomatocytes Cancelled, Bennett-[place] Bodies Cancelled, [place] Cells Cancelled, Bite Cells Cancelled, Crenated Cell Cancelled, Acanthocytes (Spur) Cancelled, Rouleaux Cancelled, Schistocytes Cancelled 12/13/20 18:40: Sodium 133 L, Potassium 4.4, Chloride 99, Carbon Dioxide 29.0, Anion Gap 5, BUN 33 H, Creatinine 1.30 H, Estim Creat Clear Calc 46.99, Est GFR (MDRD) Af Amer 54 L, Est GFR (MDRD) Non-Af 45 L, BUN/Creatinine Ratio 25.4 H, Glucose 320 H, Calcium 8.7, Troponin I High Sens 54 12/13/20 18:40: D-Dimer Quant (PE/DVT) 3.89 H* 12/13/20 19:26: WBC 9.2, RBC 4.23, Hgb 11.5 L, Hct 37.0, MCV 87.5, MCH 27.2, MCHC 31.1 L, RDW Std Deviation 54.1 H, RDW Coeff of [place] 16.9 H, Plt Count 194, MPV 10.2, Immature Gran % (Auto) 0.500, Neut % (Auto) 73.8 H, Lymph % (Auto) 17.2 L, [place] % (Auto) 6.7, Eos % (Auto) 1.3, Baso % (Auto) 0.5, Absolute Neuts (auto) 6.8, Absolute Lymphs (auto) 1.59, Nucleated RBC % 0 12/14/20 00:24: Troponin I High Sens 56 H Micro: Microbiology 12/13/20 23:08 Nasal Secretion SARS-CoV-2 Antigen (Rapid) - Final Radiology Impression Chest X-Ray 12/13/20 18:43 IMPRESSION: No acute cardiopulmonary pathology Electronically Signed: Adrián Rangel MD at 19:34 EDT , Service support , Chest CTA 12/13/20 21:35 IMPRESSION: ASHD. No evidence for pulmonary embolus Moderate sized right pleural effusion and consolidation of the right lower lobe.. Subtle patchy groundglass opacity in both lower lobes of uncertain etiology or significance. Recommend clinical correlation to include possibility of mild Covid 19 pneumonia Electronically Signed: Adrián Rangel MD at 22:49 EDT , Service support , Assessment & Plan Assessment/Plan (1) Heart failure: QUALIFIERS: Heart failure chronicity: acute Heart failure type: unspecified Qualified Code(s): I50.9 - Heart failure, unspecified (2) Stented coronary artery: (3) Pleural effusion: PLAN: Acute Heart Failure Unspecified diastolic systolic. Place on monitored bed at the progressive care unit Chest CTA: ASHD. No evidence for pulmonary embolus Moderate sized right pleural effusion and consolidation of the right lower lobe.. Subtle patchy groundglass opacity in both lower lobes of uncertain etiology or significance. Actual chest CT was independently interpreted and agree radiologist interpretation. Weight on admission to the floor; and then daily Strict I&O's Lasix IV ordered. Check BMP. Echo ordered to evaluate LVEF and wall motion. Old records reviewed did not show any echocardiogram. Fluid restriction of 1500 mls daily Ultrasound of leg to rule out blood clots. Cardiac diet ordered. Pleural effusion Ultrasound thoracentesis pleural space ordered. Fluid LDH and protein ordered. Serum LDH and protein ordered. Diabetes mellitus Blood glucose now within goal. Home sitagliptin and glimepiride continued. Acc u-Chek with correction scale insulin. CAD status post stent Aspirin and Brilinta continued. DVT prophylaxis: SCD ordered. No chemical chemoprophylaxis as patient is a candidate for ultrasound thoracentesis. Charges/Coding Visit Charges Inpatient E&M: 99056 Init Hosp L3
--- NOTE | 2020-12-14 01:56 | US_ITS ---
STUDY: SUPERFICIAL ULTRASOUND - CHEST. REASON FOR EXAM: Female, 55 years old. R pleural effusion TECHNIQUE: A superficial ultrasound was performed with real-time and static gilman-scale imaging. COMPARISON: None. FINDINGS: Assessment of both pleural spaces was performed. No significant pleural effusions are seen for safe thoracentesis. US/Chest IMPRESSION: Not enough fluid seen for a safe thoracentesis. Electronically Signed: Axel Harris MD at 15:31 EDT , Service support ,
--- NOTE | 2020-12-14 01:56 | VDLE_ITS ---
Reason For Study: Swelling RIGHT LEFT GSV is normal. GSV is normal. CFV is compressible, spontaneous, competent CFV is compressible, spontaneous, competent, and demonstrates pulsatile venous flow. and demonstrates pulsatile venous flow. FV is compressible, spontaneous, competent FV is compressible, spontaneous, competent and demonstrates pulsatile venous flow. and demonstrates pulsatile venous flow. POP V is compressible, spontaneous, competent POP V is compressible, spontaneous, competent and demonstrates pulsatile venous flow. and demonstrates pulsatile venous flow. T/P Trunk is compressible. T/P Trunk is compressible. PTV is compressible. PTV is compressible. RT PerV is compressible. LT PerV is compressible. Procedure This is a venous duplex using B-mode, color flow and spectral Doppler. Exam performed portable in patient room. A preliminary report was called and/or faxed to [facility]. VL/Venous Duplex US - [place] Extrem Interpretation Summary No evidence for acute deep venous thrombosis bilateral lower extremities with p atent and compressible bilateral great saphenous veins. Pulsitile venous flow consistent with proximal venous hypertension or obstruction--clinical correlation would be appropriate. Ordering Physician: Tomer Pierre Referring Physician: Ted Denis Performed By: Deepali Santamaria RVT
--- NOTE | 2020-12-14 01:56 | ECHOCS_ITS ---
Reason For Study: DYSPNEA Procedure This was a 2D Doppler, Color Flow transthoracic echocardiogram. The study was technically difficult. Contrast injection was performed. Exam performed portable in patient room. Left Ventricle Moderately dilated left ventricle. The estimated ejection fraction is EF 10-15 %. Right Ventricle Mildly dilated right ventricle. Mild global right ventricular systolic dysfunction. Atria The left atrium is moderately enlarged. The right atrium is mildly enlarged. Mitral Valve The mitral valve is structurally normal. No prolapse or stenosis seen. Mild-Moderate (1-2+) mitral valve insufficiency. Tricuspid Valve Normal tricuspid valve. Mild to moderate (1-2+) tricuspid valve insufficiency. Aortic Valve Normal aortic valve. Pulmonic Valve The pulmonic valve is not well visualized. Great Vessels Normal aortic root. Pericardium/Pleural No pericardial effusion. Medication Diluted definity 2.5ml given slow IV push to enhance endocardial definition. MMode/2D Measurements & Calculations LVIDd: 6.5 cm IVSd: 0.56 cm Ao root diam: 3.4 cm LVIDs: 6.3 cm LVPWd: 0.74 cm FS: 3.3 % LAV(MOD-bp): 78.8 ml LVAd ap4: 42.3 cm2 LVAd ap2: 45.5 cm2 LAV(MOD-bp) Indexed: 37.2 ml/m2 LVLd ap4: 8.9 cm LVLd ap2: 9.1 cm LAV(MOD-sp2): 79.0 ml EDV(MOD-sp4): 163.9 ml EDV(MOD-sp2): 191.7 ml LAV(MOD-sp4): 76.7 ml EDV(sp4-el): 171.4 ml EDV(sp2-el): 192.9 ml LVAs ap4: 40.4 cm2 LVAs ap2: 43.9 cm2 LVLs ap4: 9.0 cm LVLs ap2: 9.3 cm ESV(MOD-sp4): 149.9 ml ESV(MOD-sp2): 173.2 ml ESV(sp4-el): 154.0 ml ESV(sp2-el): 175.8 ml EF(MOD-sp4): 8.6 % EF(MOD-sp2): 9.7 % EF(sp4-el): 10.1 % SV(MOD-sp4): 14.0 ml SV(MOD-sp2): 18.5 ml SV(sp4-el): 17.3 ml LA A4 area: 26.0 cm2 LA dimension(2D): 4.3 cm RA A4 area: 24.4 cm2 Doppler Measurements & Calculations MV E max marc: 151.2 cm/sec Lat Peak E' Marc: 1.9 cm/sec Med Peak E' Marc: 1.8 cm/sec E/E' lat: 80.8 E/E' med: 83.7 Ao V2 max: 86.2 cm/sec LV V1 max: 46.1 cm/sec PA V2 max: 65.3 cm/sec Ao max P.0 mmHg LV V1 max P.85 mmHg TR max marc: 287.2 cm/sec TR max P.0 mmHg ECHO/Echo Complete W/ Contrast Interpretation Summary The estimated ejection fraction is EF 10-15 %. Severe LV systolic function with severe global LV hypokinesia Mild to moderate MR Mild to moderate TR Ordering Physician: Tomer Pierre Referring Physician: BORIS DENG Performed By: Maria Alejandra Coronado, VIVIENNE, RVT
--- NOTE | 2020-12-14 02:10 | PCS.PANDOC ---
PANDEMIC DOCUMENTATION INITIATED: Date: 11/12/2020 Time: 190
[2020-12-14 02:43] LABS: Troponin-I HS 63 pg/mL (3.0-54.0)
[2020-12-14 05:21] LABS: Absolute Lymphocyte Count 1.58 X10^3/uL (0.83-4.51); Absolute Neutrophil Count 8.9 X10^3/uL (2.0-7.7); Basophil# 0.05 X10^3/uL; Basophil% 0.4 % (0-1); Eosinophil# 0.11 X10^3/uL; Hematocrit 35.6 % (37-47); Lymphocyte # 1.58 X10^3/ul (0.83-4.51); Lymphocyte % 13.7 % (19-41); Mean Corp Hgb Conc 30.9 g/dL (32-36); Mean Corpuscular Hgb 27.1 pg (27.0-32.0); Mean Corpuscular Volume 87.7 fL (81-99); Mean Platelet Vol. 10.3 fl (6.2-12.0); Monocyte# 0.84 X10^3/uL; Monocyte% 7.3 % (0-10); NRBC Flagged by Analyzer 0 % (0-5); Neutrophil # 8.87 X10^3/uL (2.7-7.7); Neutrophil % 76.9 % (47-70); Platelet Count 200 K/mm3 (150-450); RBC Distribution Width CV 16.7 % (11.6-14.6); RBC Distribution Width SD 53.5 fl (35.1-43.9); Red Blood Count 4.06 M/mm3 (4.2-5.4); White Blood Count 11.5 K/mm3 (4.4-11.0)
[2020-12-14 05:47] LABS: ALB/GLOB Ratio 0.9 RATIO (0.9-2.4); Anion Gap 9 (5-15); BUN 35 mg/dL (7-18); BUN/Creat Ratio 27.6 RATIO (10-20); Calcium,Total 8.2 mg/dL (8.5-10.1); Chloride 99 mmol/L (98-107); Creatinine, Serum 1.27 mg/dL (0.55-1.02); EST Glomerular Filtration Rate 46 mL/min (>60); Est Glom Filt Rate - Afr Amer 56 mL/min (>60); Globulin 3.6 g/dL (2.2-4.2); Glucose 327 mg/dL (74-106); LDH 239 U/L (84-246); Potassium 4.2 mmol/L (3.5-5.1); Protein, Total 6.7 g/dL (6.4-8.2); Sodium Level 131 mmol/L (136-145)
[2020-12-14] MEDS: Ipratropium/Albuterol Sulfate 3 ML AMPUL.NEB INHALATION ×3 (07:31→19:12)
[2020-12-14 08:26] LABS: Bedside Glucose 309 mg/dL (70-110)
[2020-12-14] MEDS: Insulin Lispro 100 UNIT/ML INSULN.PEN SC ×4 (09:16→21:41)
[2020-12-14] MEDS: LINAGLIPTIN 5 MG TABLET PO (09:16)
[2020-12-14] MEDS: Sertraline 50 MG Tablet PO (09:16)
[2020-12-14] MEDS: Aspirin 81 MG TAB.CHEW 324 MG PO (09:16)
[2020-12-14] MEDS: Furosemide 40 MG/4 ML Vial IV (09:16)
[2020-12-14] MEDS: Glimepiride 4 MG Tablet PO (09:16)
[2020-12-14] MEDS: Pantoprazole Sodium 20 MG Tablet PO (09:16)
[2020-12-14] MEDS: Losartan Potassium 50 MG Tablet PO (09:16)
[2020-12-14] MEDS: TICAGRELOR 90 MG TABLET PO ×2 (09:16→21:41)
[2020-12-14] MEDS: 0.9% Saline Lock 10 ML Syringe IV (09:17)
[2020-12-14] MEDS: Acetaminophen 325 MG Tablet 650 MG PO ×2 (09:17→15:50)
[2020-12-14 10:10] LABS: International Normalized Ratio 1.5; Partial Thromboplast Time 29.1 Seconds (24.1-36.2); Prothrombin Time (Protime)PT. 17.4 SECONDS (11.7-14.9)
[2020-12-14] MEDS: Carvedilol 6.25 MG Tablet PO ×2 (11:52→14:34)
[2020-12-14 12:06] LABS: Bedside Glucose 312 mg/dL (70-110)
--- NOTE | 2020-12-14 13:05 | CASEMGMT ---
BENJI LEE Assessment: Face to face with patient for initial transition planning/care coordination assessment. BENJI LEE introduced self and role at [facility], voices understanding. Care providers, pharmacy and demographics verified. PCP: [facility] Specialists: Previously had seen a is manager in [place] but has not followed since 2017. Preferred Pharmacy: [facility] Retail pharmacy for this discharge. ([facility] otherwise) Insurance: [employer] Prescription Benefits: yes Living Will/HPOA: Pt has not completed and is not interested at this time. LNOK: Melchor Living arrangements: pt lives in a single story home with her and [id number]. There are 3 steps to enter the home. ADLS: Pt is independent with ADLs, works at [employer] Transportation: Pt drives self. DME/HHC: No current DME. Pt with previous HH for IV atb. Pt does not recall the name of the HH provider. Pt denies any discharge needs at this time including DME or post-acute care services. Discharge Plan: return home with support of family Will continue to monitor and assist as needs identified. Harley Dawn RN CM
--- NOTE | 2020-12-14 15:57 | CON.PCM.CA_ITS ---
Documented by User: Gretchen BOWERS, ROBINSON 12/14/20 17:36 Assessment & Plan Assessment/Plan (1) Cardiomyopathy: (2) CAD (coronary artery disease): QUALIFIERS: Coronary Disease-Associated Artery/Lesion type: wrangell artery (3) Hypertension: QUALIFIERS: Hypertension type: essential hypertension Qualified Code(s): I10 - Essential (primary) hypertension (4) Hyperlipidemia: (5) Heart failure: QUALIFIERS: Heart failure chronicity: acute Heart failure type: unspecified Qualified Code(s): I50.9 - Heart failure, unspecified (6) Pleural effusion: PLAN: * pts EF is noted to be 10% * She is on Coreg and losartan, will adjust according to BP/HR * she is on IV lasix, overtime will need change to PO * ideally would like to obtain heart cath, this may need to be done on OP basis * will attempt to obtain previous heart cath/echo from [facility] * Pt may need to be considered for life vest at d/c HPI Consult Data Date of Consult: 12/14/20 HPI Narrative HPI Narrative: DENZEL WALLS, is a 55 F who presented to [facility] ER for increased SOB. She notes that she was in to see her PCP last week and was awaiting to be scheduled for an echo for concerns over CHF. She had increased bloating and edema. She has increased SOB with exertion, finds it difficult to walk 10 ft. BNP was elevated, CXR and CT demonstrated moderate size right pleural effusion. She was admitted for further evaluation. She has a hx of CAD with 2 stents placed in 2017 at [facility]. She also has a hx of HTN, HL, DM. She ahs not followed with cardiology since her stents. She notes that her EF was around 40%. [facility] Medical History Cardiomyopathy Chest pain COPD (chronic obstructive pulmonary disease) CPAP (continuous positive airway pressure) dependence Diabetes Migraines Myocardial infarct Smoker Home Medications Brilinta 90 mg PO BID 07/02/18 [History Last Taken 12/13/20] losartan [Cozaar] 50 mg PO DAILY 07/02/18 [History Last Taken 12/12/20] metformin 1,000 mg PO BIDCM 07/02/18 [History Last Taken 12/13/20] omeprazole 20 mg PO DAILY 07/02/18 [History Last Taken 12/13/20] Januvia 100 mg PO DAILY 07/29/18 [History Last Taken 12/13/20] glimepiride 4 mg PO DAILY 07/29/18 [History Last Taken 12/13/20] acetaminophen [Tylenol] 650 mg PO Q6H PRN PRN tablet 08/03/18 [Rx Last Taken Unknown] albuterol sulfate 1 puff INHALATION Q4H PRN PRN 10/01/20 [History Last Taken Unknown] pravastatin 40 mg PO QHS 10/01/20 [History Last Taken 12/12/20] umeclidinium-vilanterol [Anoro Ellipta] 1 inh INHALATION DAILY 10/01/20 [History Last Taken 12/13/20] furosemide 80 mg PO DAILY 12/13/20 [History Last Taken 12/13/20] sertraline 50 mg PO DAILY 12/13/20 [History Last Taken 12/13/20] Allergy/AdvReac Type Severity Reaction Status Date / Time No Known Allergies Allergy Verified 12/13/20 17:17 Family History Other Heart disease Surgical History H/O removal of cyst Social History Smoking Status: Current every day smoker tobacco type: cigarettes ROS Constitutional Constitutional: Reports fatigue, lethargy and weight gain Eyes Eyes: Reports systems reviewed and no addt'l complaints, except as documented ENT HEENT: Reports systems reviewed and no addt'l complaints, except as documented Cardiovascular Cardiovascular: Reports abdominal bloating, dyspnea at rest, dyspnea on exertion, easily tiring during activity, edema, fatigue and leg edema Respiratory/Chest Respiratory/Chest: Reports dyspnea on exertion Gastrointestinal Gastrointestinal: Reports bloating; Denies melena or rectal bleeding Neurologic Neurologic: Reports systems reviewed and no addt'l complaints, except as documented Physical Exam Const alert, oriented x3 and no apparent distress Nutritional Appearance: obese HEENT normocephalic, head/scalp atraumatic, hearing grossly normal bilaterally, external ears normal, external nose normal, nasal mucous membranes and turbinates normal and moist oral mucous membranes Eyes PERRL, EOMs intact bilaterally, conjunctivae normal and no scleral icterus Neck General: JVD Chest inspection of chest normal Resp normal respiratory effort and no use of accessory muscles Auscultation: diminished lung sounds right lower Cardio regular rate, regular rhythm, S1 normal heart sound, S2 normal heart sound, no murmurs, no rub, no gallops and no clicks GI normal to inspection, nondistended, normoactive bowel sounds and soft to palpation Palpation: ascites Extremity no clubbing, cyanosis or edema General Extremity: edema bilateral lower extremity Details: moderate Charges/Coding Visit Charges Office Visits / Consults: [id number] IP Consult L4 Objective Data Vital Signs: Vital Signs Temp Pulse Resp BP Pulse Ox 98.3 F 88 16 86/58 L 100 12/14/20 15:45 12/14/20 15:45 12/14/20 15:45 12/14/20 15:45 12/14/20 15:45 Oxygen Flow Rate (L/min) 2 Oxygen Delivery Method Nasal Cannula Weight: 223 lb 12.307 oz Body Mass Index (BMI) 34.5 Intake & Output: Intake and Output for Last 24 Hours 12/12/20 12/13/20 12/14/20 23:59 23:59 23:59 Intake Total 1760 / 1760 Balance 1760 / 1760 Lab / Micro Data Result Diagrams: 12/14/20 04:46 12/14/20 04:46 Labs: Laboratory Results - last 24 hr 12/13/20 18:40: WBC Cancelled, Corrected WBC Cancelled, RBC Cancelled, Hgb Cancelled, Hct Cancelled, MCV Cancelled, MCH Cancelled, MCHC Cancelled, RDW Std Deviation Cancelled, RDW Coeff of Humble Cancelled, Plt Count Cancelled, MPV Cancelled, Immature Gran % (Auto) Cancelled, Neut % (Auto) Cancelled, Lymph % (Auto) Cancelled, [place] % (Auto) Cancelled, Eos % (Auto) Cancelled, Baso % (Auto) Cancelled, Absolute Neuts (auto) Cancelled, Absolute Lymphs (auto) Cancelled, Total Counted Cancelled, Neutrophils % (Manual) Cancelled, Band Neutrophils % Cancelled, Lymphocytes % (Manual) Cancelled, Monocytes % (Manual) Cancelled, Eosinophils % (Manual) Cancelled, Basophils % (Manual) Cancelled, Metamyelocytes % Cancelled, Myelocytes % Cancelled, Promyelocytes % Cancelled, Blast Cells % Cancelled, Plasma Cell % (Manual) Cancelled, Other Cells % Cancelled, Nucleated RBC % Cancelled, Nucleated RBCs/100 WBC Cancelled, Differential Comment Cancelled, Diff Path Review Cancelled, Hypersegmented Neuts Cancelled, Atypical Lymphocytes Cancelled, Reactive Lymphocytes Cancelled, Smudge Cells Cancelled, Toxic Granulation Cancelled, Toxic Vacuolation Cancelled, Dohle Bodies Cancelled, Myranda Rods Cancelled, Platelet Estimate Cancelled, Plt Morphology Comment Cancelled, RBC Morphology Cancelled, Polychromasia Cancelled, Hypochromasia Cancelled, Poikilocytosis Cancelled, Basophilic Stippling Can celled, Anisocytosis Cancelled, Microcytosis Cancelled, Macrocytosis Cancelled, Spherocytes Cancelled, Sickle Cells Cancelled, Target Cells Cancelled, Tear Drop Cells Cancelled, Ovalocytes Cancelled, Stomatocytes Cancelled, Bennett-[place] Bodies Cancelled, Sharon Cells Cancelled, Bite Cells Cancelled, Crenated Cell Cancelled, Acanthocytes (Spur) Cancelled, Rouleaux Cancelled, Schistocytes Cancelled 12/13/20 18:40: Sodium 133 L, Potassium 4.4, Chloride 99, Carbon Dioxide 29.0, Anion Gap 5, BUN 33 H, Creatinine 1.30 H, Estim Creat Clear Calc 46.99, Est GFR (MDRD) Af Amer 54 L, Est GFR (MDRD) Non-Af 45 L, BUN/Creatinine Ratio 25.4 H, Glucose 320 H, Calcium 8.7, Troponin I High Sens 54 12/13/20 18:40: D-Dimer Quant (PE/DVT) 3.89 H* 12/13/20 19:26: WBC 9.2, RBC 4.23, Hgb 11.5 L, Hct 37.0, MCV 87.5, MCH 27.2, M CHC 31.1 L, RDW Std Deviation 54.1 H, RDW Coeff of Humble 16.9 H, Plt Count 194, MPV 10.2, Immature Gran % (Auto) 0.500, Neut % (Auto) 73.8 H, Lymph % (Auto) 17.2 L, [place] % (Auto) 6.7, Eos % (Auto) 1.3, Baso % (Auto) 0.5, Absolute Neuts (auto) 6.8, Absolute Lymphs (auto) 1.59, Nucleated RBC % 0 12/14/20 00:24: Troponin I High Sens 56 H 12/14/20 02:17: Troponin I High Sens 63 H 12/14/20 04:26: COVID-19 (LEO) Not Detected 12/14/20 04:46: Sodium 131 L, Potassium 4.2, Chloride 99, Carbon Dioxide 23.0, Anion Gap 9, BUN 35 H, Creatinine 1.27 H, Estim Creat Clear Calc 48.10, Est GFR (MDRD) Af Amer 56 L, Est GFR (MDRD) Non-Af 46 L, BUN/Creatinine Ratio 27.6 H, Glucose 327 H, Calcium 8.2 L, Lactate Dehydrogenase 239, Total Protein 6.7, Globulin 3.6, Albumin/Globulin Ratio 0.9 12/14/20 04:46: WBC 11.5 H, RBC 4.06 L, Hgb 11.0 L, Hct 35.6 L, MCV 87.7, MCH 27.1, MCHC 30.9 L, RDW Std Deviation 53.5 H, RDW Coeff of Humble 16.7 H, Plt Count 200, MPV 10.3, Immature Gran % (Auto) 0.700, Neut % (Auto) 76.9 H, Lymph % (Auto) 13.7 L, [place] % (Auto) 7.3, Eos % (Auto) 1.0, Baso % (Auto) 0.4, Absolute Neuts (auto) 8.9 H, Absolute Lymphs (auto) 1.58, Nucleated RBC % 0 12/14/20 08:20: POC Glucose 309 H 12/14/20 09:45: PT 17.4 H, INR 1.5, APTT 29.1 12/14/20 11:56: POC Glucose 312 H Micro: Microbiology 12/13/20 23:08 Nasal Secretion SARS-CoV-2 Antigen (Rapid) - Final Cardiology Labs/Tests 12/13/20 18:40: WBC Cancelled, Corrected WBC Cancelled, RBC Cancelled, Hgb Cancelled, Hct Cancelled, MCV Cancelled, MCH Cancelled, MCHC Cancelled, Plt Count Cancelled, MPV Cancelled, Immature Gran % (Auto) Cancelled, Neut % (Auto) Cancelled, Lymph % (Auto) Cancelled, [place] % (Auto) Cancelled, Eos % (Auto) Cancelled, Baso % (Auto) Cancelled, Absolute Neuts (auto) Cancelled, Total Counted Cancelled, Neutrophils % (Manual) Cancelled, Band Neutrophils % Cancelled, Lymphocytes % (Manual) Cancelled, Monocytes % (Manual) Cancelled, Eosinophils % (Manual) Cancelled, Basophils % (Manual) Cancelled, Metamyelocytes % Cancelled, Myelocytes % Cancelled, Promyelocytes % Cancelled, Blast Cells % Cancelled, Plasma Cell % (Manual) Cancelled, Other Cells % Cancelled, Nucleated RBC % Cancelled 12/13/20 18:40: Sodium 133 L, Potassium 4.4, Chloride 99, Carbon Dioxide 29.0, Anion Gap 5, BUN 33 H, Creatinine 1.30 H, Est GFR (MDRD) Af Amer 54 L, Est GFR (MDRD) Non-Af 45 L, BUN/Creatinine Ratio 25.4 H, Glucose 320 H, Calcium 8.7 12/13/20 18:40: D-Dimer Quant (PE/DVT) 3.89 H* 12/13/20 19:26: WBC 9.2, RBC 4.23, Hgb 11.5 L, Hct 37.0, MCV 87.5, MCH 27.2, MCHC 31.1 L, Plt Count 194, MPV 10.2, Immature Gran % (Auto) 0.500, Neut % (Auto) 73.8 H, Lymph % (Auto) 17.2 L, [place] % (Auto) 6.7, Eos % (Auto) 1.3, Baso % (Auto) 0.5, Absolute Neuts (auto) 6.8, Nucleated RBC % 0 12/14/20 04:46: Sodium 131 L, Potassium 4.2, Chloride 99, Carbon Dioxide 23.0, Anion Gap 9, BUN 35 H, Creatinine 1.27 H, Est GFR (MDRD) Af Amer 56 L, Est GFR (MDRD) Non-Af 46 L, BUN/Creatinine Ratio 27.6 H, Glucose 327 H, Calcium 8.2 L 12/14/20 04:46: WBC 11.5 H, RBC 4.06 L, Hgb 11.0 L, Hct 35.6 L, MCV 87.7, MCH 27.1, MCHC 30.9 L, Plt Count 200, MPV 10.3, Immature Gran % (Auto) 0.700, Neut % (Auto) 76.9 H, Lymph % (Auto) 13.7 L, [place] % (Auto) 7.3, Eos % (Auto) 1.0, Baso % (Auto) 0.4, Absolute Neuts (auto) 8.9 H, Nucleated RBC % 0 12/14/20 09:45: PT 17.4 H, INR 1.5, APTT 29.1 Rhythm: EKG: Sinus tachycardia HR 145 Castillo- Septal infarct , age undetermined , cannot be excluded Abnormal ECG ECHO:The estimated ejection fraction is EF 10-15 %. Severe LV systolic function with severe global LV hypokinesia Mild to moderate MR Mild to moderate TR Radiography Diagnostic Testing: Radiology Impression Chest X-Ray 12/13/20 18:43 IMPRESSION: No acute cardiopulmonary pathology Electronically Signed: Adrián Rangel MD at 19:34 EDT , Service support , Chest CTA 12/13/20 21:35 IMPRESSION: ASHD. No evidence for pulmonary embolus Moderate sized right pleural effusion and consolidation of the right lower lobe.. Subtle patchy groundglass opacity in both lower lobes of uncertain etiology or significance. Recommend clinical correlation to include possibility of mild Covid 19 pneumonia Electronically Signed: Adrián Rangel MD at 22:49 EDT , Service support , Chest Ultrasound 12/14/20 01:56 IMPRESSION: Not enough fluid seen for a safe thoracentesis. Electronically Signed: Axel Harris MD at 15:31 EDT , Service support , Echocardiogram 12/14/20 01:56 Interpretation Summary The estimated ejection fraction is EF 10-15 %. Severe LV systolic function with severe global LV hypokinesia Mild to moderate MR Mild to moderate TR Ordering Physician: Tomer Pierre Referring Physician: BORIS DENG Performed By: Maria Alejandra Coronado, VIVIENNE, RVT Documented by User: Dr. Miranda Ross MD 12/14/20 17:44 Assessment & Plan Assessment/Plan (1) Stented coronary artery: (2) Type 2 diabetes mellitus: (3) History of PTCA: (4) Tobacco dependence due to cigarettes: (5) Osteomyelitis, jaw acute: PLAN: This patient with acute on chronic systolic heart failure, I discussed the cardiac care plan in detail with the nursing staff, patient and , as well as the medical team Patient had a history of CAD and has a PCI and stenting 2017 at [facility] This patient was not seen by [facility] for the last 4 years and this presentation she had symptoms of shortness of breath mild lightheadedness bilateral lower extremity swelling with a clinical diagnosis of acute on chronic systolic heart failure. Echocardiographic evaluation showed severe LV systolic dysfunction ejection fraction in the range of 10-15% Cardiac recommendation and plan; Agree with the current documentation and cardiac care plan by the midlevel. 1. We will continue medical treatment 2. Patient will need LifeVest prior to discharge 3. If she remains stable will consider evaluation with cardiac catheterization on Thursday to assess for ischemic cardiomyopathy 4. Very high risk patient with guarded prognosis, advised cessation of smoking. HPI Consult Data Date of Consult: 12/14/20 HPI Narrative Reason for Consultation: Patient with CAD/acute on chronic systolic heart failure and hypotension PFSH Medical History Cardiomyopathy Chest pain COPD (chronic obstructive pulmonary disease) CPAP (continuous positive airway pressure) dependence Diabetes Migraines Myocardial infarct Smoker Home Medications Brilinta 90 mg PO BID 07/02/18 [History Last Taken 12/13/20] losartan [Cozaar] 50 mg PO DAILY 07/02/18 [History Last Taken 12/12/20] metformin 1,000 mg PO BIDCM 07/02/18 [History Last Taken 12/13/20] omeprazole 20 mg PO DAILY 07/02/18 [History Last Taken 12/13/20] Januvia 100 mg PO DAILY 07/29/18 [History Last Taken 12/13/20] glimepiride 4 mg PO DAILY 07/29/18 [History Last Taken 12/13/20] acetaminophen [Tylenol] 650 mg PO Q6H PRN PRN tablet 08/03/18 [Rx Last Taken Unknown] albuterol sulfate 1 puff INHALATION Q4H PRN PRN 10/01/20 [History Last Taken Unknown] pravastatin 40 mg PO QHS 10/01/20 [History Last Taken 12/12/20] umeclidinium-vilanterol [Anoro Ellipta] 1 inh INHALATION DAILY 10/01/20 [History Last Taken 12/13/20] furosemide 80 mg PO DAILY 12/13/20 [History Last Taken 12/13/20] sertraline 50 mg PO DAILY 12/13/20 [History Last Taken 12/13/20] Allergy/AdvReac Type Severity Reaction Status Date / Time No Known Allergies Allergy Verified 12/13/20 17:17 Family History Other Heart disease Surgical History H/O removal of cyst Social History Smoking Status: Current every day smoker tobacco type: cigarettes Physical Exam Narrative This patient seen at bedside along with the nursing staff, midlevel, at bedside at time of evaluation She is alert orientated she had symptoms of shortness of breath and mild lig htheadedness and dizziness when she stands up. Also noted she has hypertension with a systolic blood pressure in the range of 80s diastolic around 60s The cardiac/vascular sonographer showed underlying normal sinus. Cardiovascular examination S1-S2 is regular, no systolic or diastolic murmur and no pericardial rub Chest examination showed diminished air entry bilateral more prominent reduced air entry on the right lower base with dullness on percussion Examination lower extremities she had +2?+3 lower extremity bilateral edema Abdomen distended Central nervous system no focal neurological deficit. Lab / Micro Data Result Diagrams: 12/14/20 04:46 12/14/20 04:46
[2020-12-14 17:31] LABS: Bedside Glucose 242 mg/dL (70-110)
--- NOTE | 2020-12-14 20:25 | PN.HOSP_ITS ---
Subjective Subjective Patient was seen and examined today, she remained tachycardic throughout the day, I placed her on a beta-filiberto, echocardiogram resulted this afternoon and showing severe impairment of her EF with an EF of 10 to 15%. She was seen by cardiology who recommended adjusting her medications and recommended a cardiac catheterization. 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 Objective Data Objective Data Vital Signs: Vital Signs Temp Pulse Resp BP Pulse Ox 98.8 F 120 H 18 83/55 L 98 12/14/20 19:48 12/14/20 19:48 12/14/20 19:48 12/14/20 19:48 12/14/20 19:48 Oxygen Flow Rate (L/min) 2 Oxygen Delivery Method Room Air Weight: 101.5 kg Body Mass Index (BMI) 34.5 Intake & Output: Intake and Output for Last 24 Hours 12/12/20 12/13/20 12/14/20 23:59 23:59 23:59 Intake Total 2620 / 2620 Balance 2620 / 2620 Lab / Micro Data Result Diagrams: 12/14/20 04:46 12/14/20 04:46 Labs: Laboratory Results - last 24 hr 12/13/20 18:40: D-Dimer Quant (PE/DVT) 3.89 H* 12/13/20 19:26: WBC 9.2, RBC 4.23, Hgb 11.5 L, Hct 37.0, MCV 87.5, MCH 27.2, MCHC 31.1 L, RDW Std Deviation 54.1 H, RDW Coeff of [place] 16.9 H, Plt Count 194, MPV 10.2, Immature Gran % (Auto) 0.500, Neut % (Auto) 73.8 H, Lymph % (Auto) 17.2 L, [place] % (Auto) 6.7, Eos % (Auto) 1.3, Baso % (Auto) 0.5, Absolute Neuts (auto) 6.8, Absolute Lymphs (auto) 1.59, Nucleated RBC % 0 12/14/20 00:24: Troponin I High Sens 56 H 12/14/20 02:17: Troponin I High Sens 63 H 12/14/20 04:26: COVID-19 (LEO) Not Detected 12/14/20 04:46: Sodium 131 L, Potassium 4.2, Chloride 99, Carbon Dioxide 23.0, Anion Gap 9, BUN 35 H, Creatinine 1.27 H, Estim Creat Clear Calc 48.10, Est GFR (MDRD) Af Amer 56 L, Est GFR (MDRD) Non-Af 46 L, BUN/Creatinine Ratio 27.6 H, Glucose 327 H, Calcium 8.2 L, Lactate Dehydrogenase 239, Total Protein 6.7, Globulin 3.6, Albumin/Globulin Ratio 0.9 12/14/20 04:46: WBC 11.5 H, RBC 4.06 L, Hgb 11.0 L, Hct 35.6 L, MCV 87.7, MCH 27.1, MCHC 30.9 L, RDW Std Deviation 53.5 H, RDW Coeff of [place] 16.7 H, Plt Count 200, MPV 10.3, Immature Gran % (Auto) 0.700, Neut % (Auto) 76.9 H, Lymph % (Auto) 13.7 L, [place] % (Auto) 7.3, Eos % (Auto) 1.0, Baso % (Auto) 0.4, Absolute Neuts (auto) 8.9 H, Absolute Lymphs (auto) 1.58, Nucleated RBC % 0 12/14/20 08:20: POC Glucose 309 H 12/14/20 09:45: PT 17.4 H, INR 1.5, APTT 29.1 12/14/20 11:56: POC Glucose 312 H 12/14/20 17:05: POC Glucose 242 H Micro: Microbiology 12/13/20 23:08 Nasal Secretion SARS-CoV-2 Antigen (Rapid) - Final Radiography Diagnostic Testing: Radiology Impression Chest CTA 12/13/20 21:35 IMPRESSION: ASHD. No evidence for pulmonary embolus Moderate sized right pleural effusion and consolidation of the right lower lobe.. Subtle patchy groundglass opacity in both lower lobes of uncertain etiology or significance. Recommend clinical correlation to include possibility of mild Covid 19 pneumonia Electronically Signed: Adrián Rangel MD at 22:49 EDT , Service support , Chest Ultrasound 12/14/20 01:56 IMPRESSION: Not enough fluid seen for a safe thoracentesis. Electronically Signed: Axel Harris MD at 15:31 EDT , Service support , Echocardiogram 12/14/20 01:56 Interpretation Summary The estimated ejection fraction is EF 10-15 %. Severe LV systolic function with severe global LV hypokinesia Mild to moderate MR Mild to moderate TR Ordering Physician: Tomer Pierre Referring Physician: BORIS DENIS Performed By: Maria Alejandra Coronado RDCS, RVT Venous Doppler Study 12/14/20 01:56 Interpretation Summary No evidence for acute deep venous thrombosis bilateral lower extremities with patent and compressible bilateral great saphenous veins. Pulsitile venous flow consistent with proximal venous hypertension or obstruction--clinical correlation would be appropriate. Ordering Physician: Tomer Pierre Referring Physician: Boris Denis Performed By: Deepali Santamaria, RVT Physical Exam Const alert, oriented x3 and no apparent distress General Appearance: cooperative, well kempt and well developed Orientation / Consciousness: awake, oriented to person, oriented to place and oriented to time HEENT normocephalic, head/scalp atraumatic and moist oral mucous membranes Head and Scalp: normocephalic Eyes PERRL, EOMs intact bilaterally and conjunctivae normal Neck nuchal rigidity, supple, no JVD, thyroid normal and no carotid bruits General: trachea midline Resp normal respiratory effort, no retractions, no use of accessory muscles and clear to auscultation bilaterally Auscultation: Negative for rales, rhonchi or wheezes Cardio regular rate, regular rhythm, no murmurs, no rub and no gallops Cardio Narrative: Patient is tachycardic GI normal to inspection, nondistended, normoactive bowel sounds, soft to palpation, non-tender and non-distended Extremity no clubbing, cyanosis or edema Skin no rashes or lesions noted, no wounds and skin turgor normal General Skin Exam: no breakdown Neuro oriented x3, CN's II-XII intact bilaterally, no focal motor deficits and no sensory deficits noted Sensorium / Orientation: awake and alert Speech: speech normal Psych thought process normal and affect normal Assessment & Plan Assessment/Plan (1) Cardiomyopathy: PLAN: 1. Acute systolic congestive heart failure-probably ischemic in nature, patient was seen by cardiology and she will undergo cardiac catheterization, medication changes per cardiology at this time #2 ischemic cardiomyopathy #3 pleural effusion secondary to #1-there was not enough fluid to drain from the patient this time #4 type 2 diabetes #5 essential hypertension #6 noncompliance with medical regimen #7 COPD by history Charges/Coding Visit Charges Inpatient E&M: 01535 Subs Hosp L2
[2020-12-14] MEDS: Pravastatin 40 MG Tablet PO (21:41)
[2020-12-14 23:06] LABS: Bedside Glucose 202 mg/dL (70-110)
[2020-12-14] MEDS: Carvedilol 3.125 MG TABLET PO (23:30)
[2020-12-15] VITALS (16 sets, daily range): BP systolic 77–95; BP diastolic 62–69; PULSE 84–129; RESP 16–18; TEMP 36–37.7; O2SAT 95–100
[2020-12-15] MEDS: Ipratropium/Albuterol Sulfate 3 ML AMPUL.NEB INHALATION ×3 (06:43→19:08)
[2020-12-15 07:30] LABS: Bedside Glucose 92 mg/dL (70-110)
[2020-12-15] MEDS: Pantoprazole Sodium 20 MG Tablet PO (08:53)
[2020-12-15] MEDS: Carvedilol 3.125 MG TABLET PO ×2 (08:53→12:24)
[2020-12-15] MEDS: 0.9% Saline Lock 10 ML Syringe IV (08:53)
[2020-12-15] MEDS: Furosemide 40 MG/4 ML Vial IV (08:53)
[2020-12-15] MEDS: Glimepiride 4 MG Tablet PO (08:53)
[2020-12-15] MEDS: TICAGRELOR 90 MG TABLET PO ×2 (08:53→22:24)
[2020-12-15] MEDS: Sertraline 50 MG Tablet PO (08:53)
[2020-12-15] MEDS: Aspirin 81 MG TAB.CHEW 324 MG PO (08:53)
[2020-12-15] MEDS: LINAGLIPTIN 5 MG TABLET PO (08:53)
[2020-12-15] MEDS: Insulin Lispro 100 UNIT/ML INSULN.PEN SC ×3 (12:27→22:27)
[2020-12-15 13:06] LABS: Bedside Glucose 231 mg/dL (70-110)
--- NOTE | 2020-12-15 13:09 | PCM.PN.CARD ---
Subjective Subjective Seen evaluated today in progressive care unit Sitting out in a chair Feeling better still having shortness of breath and bilateral lower extremity swelling but no chest pain reported. Objective Data Vital Signs: Vital Signs Temp Pulse Resp BP Pulse Ox 97.6 F L 124 H 18 87/67 L 99 12/15/20 12:10 12/15/20 12:10 12/15/20 12:10 12/15/20 12:10 12/15/20 12:10 Oxygen Flow Rate (L/min) 2 Oxygen Delivery Method Room Air Weight: 223 lb 5.252 oz Body Mass Index (BMI) 34.5 Intake & Output: Intake and Output for Last 24 Hours 12/13/20 12/14/20 12/15/20 23:59 23:59 23:59 Intake Total 2860 / 2860 240 / 240 Balance 2860 / 2860 240 / 240 Lab / Micro Data Result Diagrams: 12/14/20 04:46 12/14/20 04:46 Labs: Laboratory Results - last 24 hr 12/14/20 17:05: POC Glucose 242 H 12/14/20 21:40: POC Glucose 202 H 12/15/20 07:22: POC Glucose 92 12/15/20 12:26: POC Glucose 231 H Cardiology Labs/Tests Rhythm: Normal sinus rhythm Radiography Diagnostic Testing: Radiology Impression Chest Ultrasound 12/14/20 01:56 IMPRESSION: Not enough fluid seen for a safe thoracentesis. Electronically Signed: Axel Harris MD at 15:31 EDT , Service support , Echocardiogram 12/14/20 01:56 Interpretation Summary The estimated ejection fraction is EF 10-15 %. Severe LV systolic function with severe global LV hypokinesia Mild to moderate MR Mild to moderate TR Ordering Physician: Tomer Pierre Referring Physician: BORIS DENIS Performed By: Maria Alejandra Coronado, [facility], RVT Venous Doppler Study 12/14/20 01:56 Interpretation Summary No evidence for acute deep venous thrombosis bilateral lower extremities with patent and compressible bilateral great saphenous veins. Pulsitile venous flow consistent with proximal venous hypertension or obstruction--clinical correlation would be appropriate. 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 Assessment & Plan Assessment/Plan (1) History of PTCA: (2) CAD (coronary artery disease): QUALIFIERS: Coronary Disease-Associated Artery/Lesion type: [place] artery PLAN: This patient 55-year-old with history of CAD prior myocardial infarction and has PCI and stent at [facility] in 2017 Presentation had shortness of breath and significant bilateral lower extremity edema With the diagnosis of acute on chronic systolic heart failure with ischemic cardiomyopathy She improving gradually Still have significant bilateral lower extremity edema +2?+3 With symptoms of shortness of breath and mild lightheadedness and dizziness No symptoms of chest pain reported Cardiac recommendation and plan; 1. We will continue current medication 2. Patient will require LifeVest prior to discharge 3. Had known history of CAD with prior: Artery stent and now presenting with acute on chronic systolic heart failure ischemic cardiomyopathy Would recommend further evaluation with cardiac catheterization to assess patency of the coronary artery stent and also to evaluate for progression of CAD We will continue the current medication as tolerated I discussed the cardiac care plan in detail with the patient, as well with medical team. (3) COPD exacerbation:
[2020-12-15 17:16] LABS: Bedside Glucose 241 mg/dL (70-110)
--- NOTE | 2020-12-15 19:00 | PCM.PN.HOSP ---
Subjective Subjective Patient was seen and examined today, she does not complain of any shortness of breath to this examiner, patient remains on room air at the time of my examination. Her blood pressures have been low today-systolic blood pressures have been in the 70s at times. Patient is asymptomatic however. I talked briefly with cardiology about her care today, she will be scheduled for a cardiac catheterization on Thursday. Objective Data Objective Data Vital Signs: Vital Signs Temp Pulse Resp BP Pulse Ox 97.7 F L 95 18 77/62 L 98 12/15/20 18:10 12/15/20 18:52 12/15/20 18:10 12/15/20 18:10 12/15/20 18:10 Oxygen Flow Rate (L/min) 2 Oxygen Delivery Method Room Air Weight: 101.3 kg Body Mass Index (BMI) 34.5 Intake & Output: Intake and Output for Last 24 Hours 12/13/20 12/14/20 12/15/20 23:59 23:59 23:59 Intake Total 2860 / 2860 480 / 480 Balance 2860 / 2860 480 / 480 Lab / Micro Data Result Diagrams: 12/14/20 04:46 12/14/20 04:46 Labs: Laboratory Results - last 24 hr 12/14/20 21:40: POC Glucose 202 H 12/15/20 07:22: POC Glucose 92 12/15/20 12:26: POC Glucose 231 H 12/15/20 16:28: POC Glucose 241 H Micro: Microbiology 12/13/20 23:08 Nasal Secretion SARS-CoV-2 Antigen (Rapid) - Final Physical Exam Const alert, oriented x3, no apparent distress and healthy appearing General Appearance: cooperative, well kempt and well developed Orientation / Consciousness: awake, oriented to person, oriented to place and oriented to time HEENT normocephalic, head/scalp atraumatic and moist oral mucous membranes Head and Scalp: normocephalic Eyes PERRL, EOMs intact bilaterally and conjunctivae normal Neck nuchal rigidity, supple, no JVD, thyroid normal and no carotid bruits General: trachea midline Resp normal respiratory effort, no retractions, no use of accessory muscles and clear to auscultation bilaterally Auscultation: Negative for rales, rhonchi or wheezes Cardio regular rate, regular rhythm, no murmurs, no rub and no gallops Cardio Narrative: Patient is tachycardic GI normal to inspection, nondistended, normoactive bowel sounds, soft to palpation, non-tender and non-distended Extremity no clubbing, cyanosis or edema Skin no rashes or lesions noted General Skin Exam: no breakdown Neuro oriented x3, CN's II-XII intact bilaterally, no focal motor deficits and no sensory deficits noted Sensorium / Orientation: awake and alert Speech: speech normal Psych thought process normal and affect normal Assessment & Plan Assessment/Plan (1) Cardiomyopathy: (2) Heart failure: QUALIFIERS: Heart failure type: unspecified Heart failure chronicity: acute Qualified Code(s): I50.9 - Heart failure, unspecified (3) Stented coronary artery: (4) Pleural effusion: PLAN: 1. Acute systolic congestive heart failure-continue present medications under direction of cardiology #2 ischemic cardiomyopathy-ejection fraction 10 to 15% #3 coronary artery disease #4 tachycardia secondary to #2-patient is on rate limiting medications currently, use of these medications are limited by patient's hypotension. #5 chronic obstructive pulmonary disease #6 type 2 diabetes-blood sugars will be monitored #7 hyperlipidemia #8 stage IIIa chronic kidney disease secondary to type 2 diabetes-BMP will be monitored Charges/Coding Visit Charges Inpatient E&M: 03967 Subs Hosp L2
[2020-12-15] MEDS: Acetaminophen 325 MG Tablet 650 MG PO (19:48)
[2020-12-15] MEDS: Pravastatin 40 MG Tablet PO (22:24)
[2020-12-16] VITALS (17 sets, daily range): BP systolic 84–109; BP diastolic 66–74; PULSE 83–114; RESP 15–18; TEMP 35.9–36.7; O2SAT 95–99
[2020-12-16 00:21] LABS: Bedside Glucose 242 mg/dL (70-110)
[2020-12-16] MEDS: Acetaminophen 325 MG Tablet 650 MG PO ×2 (02:54→20:06)
[2020-12-16] MEDS: Ipratropium/Albuterol Sulfate 3 ML AMPUL.NEB INHALATION ×3 (06:50→19:55)
[2020-12-16 07:03] LABS: Anion Gap 10 (5-15); BUN 61 mg/dL (7-18); BUN/Creat Ratio 31.8 RATIO (10-20); Calcium,Total 8.6 mg/dL (8.5-10.1); Chloride 99 mmol/L (98-107); Creatinine, Serum 1.92 mg/dL (0.55-1.02); EST Glomerular Filtration Rate 29 mL/min (>60); Est Glom Filt Rate - Afr Amer 35 mL/min (>60); Estimated Creatinine Clearance 31.82 ml/min; Glucose 116 mg/dL (74-106); Potassium 4.6 mmol/L (3.5-5.1); Sodium Level 130 mmol/L (136-145)
[2020-12-16] MEDS: Sertraline 50 MG Tablet PO (08:17)
[2020-12-16] MEDS: Aspirin 81 MG TAB.CHEW 324 MG PO (08:17)
[2020-12-16] MEDS: Glimepiride 4 MG Tablet PO (08:18)
[2020-12-16] MEDS: LINAGLIPTIN 5 MG TABLET PO (08:18)
[2020-12-16] MEDS: Carvedilol 6.25 MG Tablet PO ×2 (08:18→22:24)
[2020-12-16] MEDS: TICAGRELOR 90 MG TABLET PO ×2 (08:18→22:24)
[2020-12-16] MEDS: Pantoprazole Sodium 20 MG Tablet PO (08:18)
[2020-12-16] MEDS: 0.9% Saline Lock 10 ML Syringe IV (08:19)
[2020-12-16] MEDS: Furosemide 40 MG/4 ML Vial IV (08:19)
[2020-12-16 09:51] LABS: Bedside Glucose 110 mg/dL (70-110)
--- NOTE | 2020-12-16 11:18 | PCM.PN.CARD ---
Subjective Subjective Sitting out in a chair Still short of breath on minimal exertion and bilateral lower extremity swelling. Objective Data Vital Signs: Vital Signs Temp Pulse Resp BP Pulse Ox 97.2 F L 86 18 96/74 97 12/16/20 08:10 12/16/20 11:00 12/16/20 08:10 12/16/20 08:10 12/16/20 08:10 Oxygen Flow Rate (L/min) 2 Oxygen Delivery Method Room Air Weight: 223 lb 12.307 oz Body Mass Index (BMI) 34.5 Intake & Output: Intake and Output for Last 24 Hours 12/14/20 12/15/20 12/16/20 23:59 23:59 23:59 Intake Total 2860 / 2860 720 / 720 240 / 240 Balance 2860 / 2860 720 / 720 240 / 240 Lab / Micro Data Result Diagrams: 12/14/20 04:46 12/16/20 06:00 Labs: Laboratory Results - last 24 hr 12/15/20 12:26: POC Glucose 231 H 12/15/20 16:28: POC Glucose 241 H 12/15/20 22:27: POC Glucose 242 H 12/16/20 06:00: Sodium 130 L, Potassium 4.6, Chloride 99, Carbon Dioxide 21.0, Anion Gap 10, BUN 61 H, Creatinine 1.92 H, Estim Creat Clear Calc 31.82, Est GFR (MDRD) Af Amer 35 L, Est GFR (MDRD) Non-Af 29 L, BUN/Creatinine Ratio 31.8 H, Glucose 116 H, Calcium 8.6 12/16/20 08:03: POC Glucose 110 Cardiology Labs/Tests 12/16/20 06:00: Sodium 130 L, Potassium 4.6, Chloride 99, Carbon Dioxide 21.0, Anion Gap 10, BUN 61 H, Creatinine 1.92 H, Est GFR (MDRD) Af Amer 35 L, Est GFR (MDRD) Non-Af 29 L, BUN/Creatinine Ratio 31.8 H, Glucose 116 H, Calcium 8.6 Rhythm: Normal sinus rhythm Physical Exam Narrative Patient alert and oriented x3 Cardiovascular examination S1-S2 regular, no murmur no systolic or diastolic murmur Chest examination diminished diminished air entry bilateral with minimal basilar rales Examination lower extremity +2?+3 lower extremity edema. Assessment & Plan Assessment/Plan (1) History of PTCA: (2) CAD (coronary artery disease): QUALIFIERS: Coronary Disease-Associated Artery/Lesion type: [place] artery (3) Osteomyelitis, jaw acute: (4) Cardiomyopathy: PLAN: This patient 55-year-old with acute on chronic systolic heart failure Ischemic cardiomyopathy with prior PCI and stent 2017/[facility] With other multiple risk factors history of diabetes COPD hypertension hyperlipidemia This admission is with acute on chronic systolic heart failure Cardiac recommendation and plan; 1. To continue current medication 2. High risk patient for cardiac cath with the risk of contrast-induced nephropathy creatinine level today is 1.92 3. Would recommend nephrology consultation, I requested today 4. Severe LV systolic dysfunction with ejection fraction in the range of 10-15% 5. We will plan for cardiac catheterization during this admission, patient also will need LifeVest and close monitoring of medication.
[2020-12-16] MEDS: Insulin Lispro 100 UNIT/ML INSULN.PEN SC ×3 (12:03→22:45)
[2020-12-16 12:11] LABS: Bedside Glucose 202 mg/dL (70-110)
--- NOTE | 2020-12-16 12:43 | CON.PCM.RE_ITS ---
Assessment & Plan Assessment/Plan (1) PATRICIA (acute kidney injury): PLAN: likely due to ATN from contrast exposure, cardiorenal syndrome with EF 10-15%, hypotension, tachycardia with underlying diabetic nephropathy. Check urine protein/cr ratio, FeNa, renal US. Baseline creatinine 0.94 on 10/01/20 now with decompensated CHF, +troponin. Creatinine 1.27 to 1.3 increased to 1.9 today. Recommend to hold on repeat contrast exposure with heart cath until renal function optimized. (2) Type 2 diabetes mellitus: PLAN: check upcr (3) Hypertension: QUALIFIERS: Hypertension type: essential hypertension Qualified Code(s): I10 - Essential (primary) hypertension PLAN: history of hypertension now with hypotension. (4) Cardiomyopathy: PLAN: EF 10-15% (5) History of PTCA: PLAN: CAD s/p stent 2016 (6) Leg edema: PLAN: venous doppler neg for DVT. Continue diuretic (7) COPD (chronic obstructive pulmonary disease): (8) CHF (congestive heart failure): PLAN: fluid restriction, low sodium diet HPI Consult Data Date of Consult: 12/16/20 HPI Narrative HPI Narrative: DENZEL WALLS, is a 55 F who presents to [place] ER on 916 with shortness of breath, leg swelling, lightheadedness with low BP and tachycardia. She underwent CTA with iv contrast on 12/13 that did not show PE. Creatinine on admit 1.3 to 1.27, now at 1.9 today. Baseline creatinine 0.94 on 10/01/20. She had positive troponin with elevated ddimer. She has CMP with EF 10-15% with moderate MR, TR, DM2 with mild proteinuria, CAD s/p stent in 2017. Cardiology consulted for possible heart cath. She was started on lasix IV on 12/15. She was started on Lasix as an outpatient last week for fluid overload. She lost 18 pounds with oral diuretics at home prior to admit. Losartan on hold during hospitalization. She has COPD and sleep apnea on BiPAP at home. [facility] Medical History Cardiomyopathy Chest pain COPD (chronic obstructive pulmonary disease) CPAP (continuous positive airway pressure) dependence Diabetes Migraines Myocardial infarct Smoker Home Medications Brilinta 90 mg PO BID 07/02/18 [History Last Taken 12/13/20] losartan [Cozaar] 50 mg PO DAILY 07/02/18 [History Last Taken 12/12/20] metformin 1,000 mg PO BIDCM 07/02/18 [History Last Taken 12/13/20] omeprazole 20 mg PO DAILY 07/02/18 [History Last Taken 12/13/20] Januvia 100 mg PO DAILY 07/29/18 [History Last Taken 12/13/20] glimepiride 4 mg PO DAILY 07/29/18 [History Last Taken 12/13/20] acetaminophen [Tylenol] 650 mg PO Q6H PRN PRN tablet 08/03/18 [Rx Last Taken Unknown] albuterol sulfate 1 puff INHALATION Q4H PRN PRN 10/01/20 [History Last Taken Unknown] pravastatin 40 mg PO QHS 10/01/20 [History Last Taken 12/12/20] umeclidinium-vilanterol [Anoro Ellipta] 1 inh INHALATION DAILY 10/01/20 [History Last Taken 12/13/20] furosemide 80 mg PO DAILY 12/13/20 [History Last Taken 12/13/20] sertraline 50 mg PO DAILY 12/13/20 [History Last Taken 12/13/20] Allergy/AdvReac Type Severity Reaction Status Date / Time No Known Allergies Allergy Verified 12/13/20 17:17 Family History Other Heart disease Surgical History H/O removal of cyst Social History Smoking Status: Current every day smoker tobacco type: cigarettes ROS Constitutional Constitutional: Reports weakness and weight loss; Denies chills or fever(s) Eyes Eyes: Denies change in vision ENT HEENT: Denies epistaxis or nasal congestion Cardiovascular Cardiovascular: Reports dyspnea on exertion and irregular heart rhythm; Denies chest pain Respiratory/Chest Respiratory/Chest: Reports dyspnea on exertion and shortness of breath at rest; Denies hemoptysis Gastrointestinal Gastrointestinal: Reports nausea; Denies abdominal pain, diarrhea or vomiting Genitourinary Genitourinary: Denies difficulty urinating Musculoskeletal Musculoskeletal: Reports other Details: Leg edema improved with Lasix started as outpatient last week Neurologic Neurologic: Denies confusion or focal weakness Psychiatric Psychiatric: Reports anxiety; Denies depression Hematologic/Lymphatic Hematologic/Lymphatic: Denies anemia Physical Exam Const alert, oriented x3 and no apparent distress HEENT normocephalic Eyes PERRL Resp clear to auscultation bilaterally Resp Narrative: On BiPAP Cardio regular rate GI non-tender and non-distended GI Narrative: Obese Palpation: soft Extremity General Extremity: edema bilateral Skin no wounds Neuro Sensorium / Orientation: awake and alert Psych cooperative Lab / Micro Data Result Diagrams: 12/14/20 04:46 12/16/20 06:00 Labs: Laboratory Results - last 24 hr 12/15/20 12:26: POC Glucose 231 H 12/15/20 16:28: POC Glucose 241 H 12/15/20 22:27: POC Glucose 242 H 12/16/20 06:00: Sodium 130 L, Potassium 4.6, Chloride 99, Carbon Dioxide 21.0, Anion Gap 10, BUN 61 H, Creatinine 1.92 H, Estim Creat Clear Calc 31.82, Est GFR (MDRD) Af Amer 35 L, Est GFR (MDRD) Non-Af 29 L, BUN/Creatinine Ratio 31.8 H, Glucose 116 H, Calcium 8.6 12/16/20 08:03: POC Glucose 110 12/16/20 12:00: POC Glucose 202 H
[2020-12-16 16:48] LABS: Protein, Urine (Random) 8.5 mg/dL (<11.9); Protein:Creat Ratio 100 mg/g CRE (0-200); Urine Sodium 7 mmol/L (Not Establ.)
[2020-12-16 16:50] LABS: Bedside Glucose 231 mg/dL (70-110)
--- NOTE | 2020-12-16 18:39 | PCM.PN.HOSP ---
Subjective Subjective Patient was seen and examined today, her blood pressure today is improved over yesterday, pulse rate is around 100. Patient will be undergoing a cardiac catheterization tomorrow. She was seen today in consultation by nephrology. Objective Data Objective Data Vital Signs: Vital Signs Temp Pulse Resp BP Pulse Ox 97.9 F 101 H 18 103/71 98 12/16/20 14:10 12/16/20 15:00 12/16/20 14:10 12/16/20 14:10 12/16/20 14:10 Oxygen Flow Rate (L/min) 2 Oxygen Delivery Method Room Air Weight: 101.5 kg Body Mass Index (BMI) 34.5 Intake & Output: Intake and Output for Last 24 Hours 12/14/20 12/15/20 12/16/20 23:59 23:59 23:59 Intake Total 2860 / 2860 720 / 720 480 / 480 Output Total 175 / 175 Balance 2860 / 2860 720 / 720 305 / 305 Lab / Micro Data Result Diagrams: 12/14/20 04:46 12/16/20 06:00 Labs: Laboratory Results - last 24 hr 12/15/20 22:27: POC Glucose 242 H 12/16/20 06:00: Sodium 130 L, Potassium 4.6, Chloride 99, Carbon Dioxide 21.0, Anion Gap 10, BUN 61 H, Creatinine 1.92 H, Estim Creat Clear Calc 31.82, Est GFR (MDRD) Af Amer 35 L, Est GFR (MDRD) Non-Af 29 L, BUN/Creatinine Ratio 31.8 H, Glucose 116 H, Calcium 8.6 12/16/20 08:03: POC Glucose 110 12/16/20 12:00: POC Glucose 202 H 12/16/20 16:10: U Random Total Protein 8.5, Ur Random Sodium 7, Urine Creatinine 84.60, Protein/Creatinin Ratio 100 12/16/20 16:19: POC Glucose 231 H Micro: Microbiology 12/13/20 23:08 Nasal Secretion SARS-CoV-2 Antigen (Rapid) - Final Physical Exam Const alert, oriented x3, no apparent distress and healthy appearing General Appearance: cooperative, well kempt and well developed Orientation / Consciousness: awake, oriented to person, oriented to place and oriented to time HEENT normocephalic, head/scalp atraumatic and moist oral mucous membranes Head and Scalp: normocephalic Eyes PERRL, EOMs intact bilaterally and conjunctivae normal Neck nuchal rigidity, supple, no JVD, thyroid normal and no carotid bruits General: trachea midline Resp normal respiratory effort and clear to auscultation bilaterally Auscultation: Negative for rales, rhonchi or wheezes Cardio regular rate, regular rhythm, S1 normal heart sound, S2 normal heart sound, no murmurs, no rub and no gallops GI normal to inspection, nondistended, normoactive bowel sounds, soft to palpation, non-tender and non-distended Extremity normal to inspection and no clubbing, cyanosis or edema Skin no rashes or lesions noted General Skin Exam: no breakdown Neuro oriented x3, CN's II-XII intact bilaterally, no focal motor deficits and no sensory deficits noted Sensorium / Orientation: awake and alert Speech: speech normal Psych thought process normal and affect normal Assessment & Plan Assessment/Plan (1) Cardiomyopathy: (2) Heart failure: QUALIFIERS: Heart failure type: unspecified Heart failure chronicity: acute Qualified Code(s): I50.9 - Heart failure, unspecified (3) Stented coronary artery: (4) Pleural effusion: PLAN: 1. Acute systolic congestive heart failure-due to the patient's elevated creatinine, I have stopped the patient's IV Lasix, I conveyed this to cardiology. #2 ischemic cardiomyopathy-ejection fraction 10 to 15%-cardiology at this time wants to hold off a cardiac cath due to the patient's impairment of her renal function, I have readjusted the patient's aspirin to 81 mg daily #3 coronary artery disease #4 tachycardia secondary to #2-patient is on rate limiting medications currently, patient's pulse is better today #5 chronic obstructive pulmonary disease #6 type 2 diabetes-blood sugars will be monitored #7 hyperlipidemia #8 stage IIIa chronic kidney disease secondary to type 2 diabetes-BMP will be monitored, nephrology is following patient Charges/Coding Visit Charges Inpatient E&M: 49228 Subs Hosp L2
[2020-12-16] MEDS: Pravastatin 40 MG Tablet PO (22:24)
[2020-12-16 22:50] LABS: Bedside Glucose 323 mg/dL (70-110)
[2020-12-17] VITALS (14 sets, daily range): BP systolic 83–103; BP diastolic 63–76; PULSE 79–104; RESP 15–20; TEMP 35.2–36.2; O2SAT 97–100
[2020-12-17] MEDS: Acetaminophen 325 MG Tablet 650 MG PO ×2 (03:18→10:37)
[2020-12-17 06:19] LABS: Albumin, Serum 2.9 g/dL (3.2-5.0); BUN 67 mg/dL (7-18); BUN/Creat Ratio 33.2 RATIO (10-20); Calcium,Total 8.4 mg/dL (8.5-10.1); Chloride 96 mmol/L (98-107); Creatinine, Serum 2.02 mg/dL (0.55-1.02); EST Glomerular Filtration Rate 27 mL/min (>60); Est Glom Filt Rate - Afr Amer 33 mL/min (>60); Estimated Creatinine Clearance 30.24 ml/min; Glucose 244 mg/dL (74-106); Phosphorus 6.4 mg/dL (2.5-4.9); Potassium 4.9 mmol/L (3.5-5.1); Sodium Level 130 mmol/L (136-145)
[2020-12-17] MEDS: Ipratropium/Albuterol Sulfate 3 ML AMPUL.NEB INHALATION ×3 (07:22→19:40)
--- NOTE | 2020-12-17 08:00 | US_ITS ---
STUDY: RENAL ULTRASOUND - COMPLETE REASON FOR EXAM: Female, 55 years old. kayla TECHNIQUE: Ultrasound evaluation of the kidneys was performed with real-time and static long-scale imaging. Limited study due to gas and obesity. COMPARISON: None. FINDINGS: RIGHT KIDNEY: Normal location of the right kidney, which is normal in size. The right kidney measures 9.6 cm x 6.7 cm x 4.5 cm. There is a normal cortex of the right kidney. The renal cortex measures 1.6 cm. There is a 2.9 cm x 3.1 cm x 2.2 cm cyst with low-level echoes within it. This may represent an hemorrhagic cyst. There are no right renal calculi. There is no right hydronephrosis. DISTAL RIGHT URETER: There is non-visualization of the distal right ureter. There is no demonstrated right ureterovesical junction calculus. There is no demonstrated right ureteral jet. LEFT KIDNEY: Normal location of the left kidney, which is normal in size. The left kidney measures 10.9 cm x 5.5 cm x 6.6 cm. There is a normal cortex of the left kidney. The renal cortex measures 1.7 cm. There is a 3 cm x 3 cm x 2.7 cm cyst. There are no left renal calculi. There is no left hydronephrosis. DISTAL LEFT URETER: There is non-visualization of the distal left ureter. There is no demonstrated left ureterovesical junction calculus. There is no demonstrated left ureteral jet. BLADDER: The distended urinary bladder has a volume of 388 ml. There is diffuse bladder wall thickening. Increased echoes are seen along the posterior aspect of the bladder. Follow-up is recommended. US/Kidney and Bladder IMPRESSION: Complex cyst in the right kidney. Simple cyst in left kidney. Diffuse bladder wall thickening with focal thickening at the base of the bladder. Correlation with the CT scan is recommended. Electronically Signed: Axel Harris MD at 8:51 EDT , Service support ,
--- NOTE | 2020-12-17 08:00 | PCM.PN.CARD ---
Subjective Subjective Patient seen and evaluated. Appears to be stable at this time. No acute changes. Denies any chest pain or cough Objective Data Vital Signs: Vital Signs Temp Pulse Resp BP Pulse Ox 96.2 F L 81 15 97/76 99 12/17/20 03:11 12/17/20 06:49 12/17/20 06:49 12/17/20 06:49 12/17/20 06:49 Oxygen Flow Rate (L/min) 2 Oxygen Delivery Method CPAP Weight: 223 lb 12.307 oz Body Mass Index (BMI) 34.5 Intake & Output: Intake and Output for Last 24 Hours 12/15/20 12/16/20 12/17/20 23:59 23:59 23:59 Intake Total 720 / 720 480 / 480 100 / 100 Output Total 175 / 175 Balance 720 / 720 305 / 305 100 / 100 Lab / Micro Data Result Diagrams: 12/14/20 04:46 12/17/20 05:14 Labs: Laboratory Results - last 24 hr 12/16/20 08:03: POC Glucose 110 12/16/20 12:00: POC Glucose 202 H 12/16/20 16:10: U Random Total Protein 8.5, Ur Random Sodium 7, Urine Creatinine 84.60, Protein/Creatinin Ratio 100 12/16/20 16:19: POC Glucose 231 H 12/16/20 22:39: POC Glucose 323 H 12/17/20 05:14: Sodium 130 L, Potassium 4.9, Chloride 96 L, Carbon Dioxide 24.0, BUN 67 H, Creatinine 2.02 H, Estim Creat Clear Calc 30.24, Est GFR (MDRD) Af Amer 33 L, Est GFR (MDRD) Non-Af 27 L, BUN/Creatinine Ratio 33.2 H, Glucose 244 H, Calcium 8.4 L, Phosphorus 6.4 H, Albumin 2.9 L Cardiology Labs/Tests 12/17/20 05:14: Sodium 130 L, Potassium 4.9, Chloride 96 L, Carbon Dioxide 24.0, BUN 67 H, Creatinine 2.02 H, Est GFR (MDRD) Af Amer 33 L, Est GFR (MDRD) Non-Af 27 L, BUN/Creatinine Ratio 33.2 H, Glucose 244 H, Calcium 8.4 L, Phosphorus 6.4 H Rhythm: EKG: ECHO: Estimated ejection fraction of 10 to 15% Stress Test: Cardiac Cath: PCI: CT Surgery: Holter monitor: EPS: PPM: CXR: Chest CT Scan: Physical Exam Const alert, oriented x3 and no apparent distress General Appearance: cooperative HEENT hearing grossly normal bilaterally Head and Scalp: atraumatic Eyes EOMs intact bilaterally Neck General: normal visual inspection Chest inspection of chest normal and palpation of chest normal Resp normal respiratory effort Auscultation: clear to auscultation bilaterally Cardio regular rate, regular rhythm, S1 normal heart sound and S2 normal heart sound Jugular Venous Distention: JVD GI normal to inspection, nondistended, normoactive bowel sounds Extremity normal capillary refill General Extremity: edema Peripheral Pulses: Yes pulses 2+ throughout and femoral pulses present Skin no rashes or lesions noted Neuro oriented x3 and CN's II-XII intact bilaterally Psych Appearance: grossly normal and appropriate Assessment & Plan Assessment/Plan (1) History of PTCA: PLAN: She has had a prior history of PCI of the LAD in 2017 at [facility]. At some point we would need to reevaluate her coronary anatomy and depending on the findings further recommendations will be made. At this time however her creatinine appears to be rather precarious and we will hold off. (2) Cardiomyopathy: PLAN: She does have evidence of severe cardiomyopathy which is out of proportion to her previously reported coronary artery disease. I would recommend at this time that we continue with her beta-filiberto Continue to observe her creatinine until it plateaus and then decide on whether to start her on Entresto I will hold off on any diuretics at this particular time and see how she does. She likely has had some contrast-induced nephropathy as well as hypoperfusion. Will hold off on any APRIL inhibitor or ARB at this time due to the elevated creatinine She will need to have a left heart catheterization at some point. This will be decided depending on how her creatinine changes. 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
[2020-12-17] MEDS: Insulin Lispro 100 UNIT/ML INSULN.PEN SC ×4 (08:30→21:46)
[2020-12-17] MEDS: Aspirin E.C. 81 MG Tablet PO (08:30)
--- NOTE | 2020-12-17 09:56 | PCM.PN.REN ---
Subjective Subjective breathing stable, urinating with iv lasix, I/O's inaccurate. No chest pain, nausea, vomiting. Appetite good. Creatinine plateaued at 2.1 today. Holding heart cath until renal fxn improved Objective Data Objective Data Vital Signs: Vital Signs Temp Pulse Resp BP Pulse Ox 95.4 F L 79 18 90/68 98 12/17/20 08:27 12/17/20 08:27 12/17/20 08:27 12/17/20 08:27 12/17/20 08:27 Oxygen Flow Rate (L/min) 2 Oxygen Delivery Method Room Air Weight: 101.5 kg Body Mass Index (BMI) 34.5 Intake & Output: Intake and Output for Last 24 Hours 12/15/20 12/16/20 12/17/20 23:59 23:59 23:59 Intake Total 720 / 720 480 / 480 100 / 100 Output Total 175 / 175 Balance 720 / 720 305 / 305 100 / 100 Lab / Micro Data Result Diagrams: 12/14/20 04:46 12/17/20 05:14 Labs: Laboratory Results - last 24 hr 12/16/20 12:00: POC Glucose 202 H 12/16/20 16:10: U Random Total Protein 8.5, Ur Random Sodium 7, Urine Creatinine 84.60, Protein/Creatinin Ratio 100 12/16/20 16:19: POC Glucose 231 H 12/16/20 22:39: POC Glucose 323 H 12/17/20 05:14: Sodium 130 L, Potassium 4.9, Chloride 96 L, Carbon Dioxide 24.0, BUN 67 H, Creatinine 2.02 H, Estim Creat Clear Calc 30.24, Est GFR (MDRD) Af Amer 33 L, Est GFR (MDRD) Non-Af 27 L, BUN/Creatinine Ratio 33.2 H, Glucose 244 H, Calcium 8.4 L, Phosphorus 6.4 H, Albumin 2.9 L Micro: Microbiology 12/13/20 23:08 Nasal Secretion SARS-CoV-2 Antigen (Rapid) - Final Physical Exam Const alert, oriented x3 and no apparent distress Resp clear to auscultation bilaterally Cardio regular rate GI non-tender and non-distended Palpation: soft Extremity General Extremity: edema bilateral Neuro Sensorium / Orientation: awake and alert Psych cooperative Assessment & Plan Assessment/Plan (1) PATRICIA (acute kidney injury): PLAN: likely due to ATN from contrast exposure, cardiorenal syndrome with EF 10-15%, hypoperfusion state with underlying diabetic nephropathy. Creatinine 2.0 with baseline 0.9 in September 2020, 1.2-1.3 on admit. Hold on heart cath until renal fxn improved to baseline. DW cardiology. Hold on iv fluids due to CHF, CMP. (2) Type 2 diabetes mellitus: PLAN: check upcr (3) Hypertension: QUALIFIERS: Hypertension type: essential hypertension Qualified Code(s): I10 - Essential (primary) hypertension PLAN: improved hypotension. (4) Cardiomyopathy: PLAN: EF 10-15% continue with lasix for hypervolemia (5) History of PTCA: PLAN: CAD s/p stent 2016 (6) Leg edema: PLAN: venous doppler neg for DVT. Continue diuretic (7) CHF (congestive heart failure): PLAN: fluid restriction, low sodium diet, lasix (8) Hyponatremia: PLAN: likely due to volume expansion
[2020-12-17] MEDS: Carvedilol 6.25 MG Tablet PO ×2 (09:59→21:46)
[2020-12-17] MEDS: Pantoprazole Sodium 20 MG Tablet PO (09:59)
[2020-12-17] MEDS: Sertraline 50 MG Tablet PO (09:59)
[2020-12-17 10:00] LABS: Bedside Glucose 222 mg/dL (70-110)
[2020-12-17] MEDS: LINAGLIPTIN 5 MG TABLET PO (10:00)
[2020-12-17 11:41] LABS: Bedside Glucose 238 mg/dL (70-110)
[2020-12-17 16:50] LABS: Bedside Glucose 260 mg/dL (70-110)
--- NOTE | 2020-12-17 19:28 | PCM.PN.HOSP ---
Subjective Subjective Patient was seen and examined today, patient's renal functions have declined since yesterday, cardiology has decided to postpone any cardiac catheterization due to use of contrast. Nephrology is seeing the patient and participating in her care. Objective Data Objective Data Vital Signs: Vital Signs Temp Pulse Resp BP Pulse Ox 96.5 F L 84 18 103/74 99 12/17/20 16:12 12/17/20 16:12 12/17/20 16:12 12/17/20 16:12 12/17/20 16:12 Oxygen Flow Rate (L/min) 2 Oxygen Delivery Method CPAP Weight: 101.5 kg Body Mass Index (BMI) 34.5 Intake & Output: Intake and Output for Last 24 Hours 12/15/20 12/16/20 12/17/20 23:59 23:59 23:59 Intake Total 720 / 720 480 / 480 700 / 700 Output Total 175 / 175 Balance 720 / 720 305 / 305 700 / 700 Lab / Micro Data Result Diagrams: 12/14/20 04:46 12/17/20 05:14 Labs: Laboratory Results - last 24 hr 12/16/20 22:39: POC Glucose 323 H 12/17/20 05:14: Sodium 130 L, Potassium 4.9, Chloride 96 L, Carbon Dioxide 24.0, BUN 67 H, Creatinine 2.02 H, Estim Creat Clear Calc 30.24, Est GFR (MDRD) Af Amer 33 L, Est GFR (MDRD) Non-Af 27 L, BUN/Creatinine Ratio 33.2 H, Glucose 244 H, Calcium 8.4 L, Phosphorus 6.4 H, Albumin 2.9 L 12/17/20 07:21: POC Glucose 222 H 12/17/20 11:25: POC Glucose 238 H 12/17/20 16:09: POC Glucose 260 H Micro: Microbiology 12/13/20 23:08 Nasal Secretion SARS-CoV-2 Antigen (Rapid) - Final Physical Exam Const alert, oriented x3, no apparent distress and healthy appearing General Appearance: cooperative, well kempt and well developed Orientation / Consciousness: awake, oriented to person, oriented to place and oriented to time HEENT normocephalic, head/scalp atraumatic and moist oral mucous membranes Head and Scalp: normocephalic Eyes PERRL, EOMs intact bilaterally and conjunctivae normal Neck nuchal rigidity, supple, no JVD, thyroid normal and no carotid bruits General: trachea midline Resp normal respiratory effort, no retractions, no use of accessory muscles and clear to auscultation bilaterally Auscultation: Negative for rales, rhonchi or wheezes Cardio regular rate, regular rhythm, S1 normal heart sound, S2 normal heart sound, no murmurs, no rub and no gallops GI normal to inspection, nondistended, normoactive bowel sounds, soft to palpation, non-tender and non-distended Extremity no clubbing, cyanosis or edema Skin no rashes or lesions noted and skin turgor normal General Skin Exam: no breakdown Neuro oriented x3, CN's II-XII intact bilaterally, no focal motor deficits and no sensory deficits noted Sensorium / Orientation: awake and alert Speech: speech normal Psych thought process normal and affect normal Assessment & Plan Assessment/Plan (1) CHF (congestive heart failure): (2) Cardiomyopathy: (3) Heart failure: QUALIFIERS: Heart failure type: unspecified Heart failure chronicity: acute Qualified Code(s): I50.9 - Heart failure, unspecified (4) Stented coronary artery: (5) Pleural effusion: PLAN: 1. Acute systolic congestive heart failure-due to the patient's elevated creatinine, cardiology is postponing the patient's cardiac catheterization, labs will be monitored #2 ischemic cardiomyopathy-ejection fraction 10 to 15%-cardiology at this time wants to hold off a cardiac cath due to the patient's impairment of her renal function #3 coronary artery disease #4 tachycardia secondary to #2-patient is on rate limiting medications currently, patient's pulse is better today #5 chronic obstructive pulmonary disease #6 type 2 diabetes-blood sugars will be monitored #7 hyperlipidemia #8 stage IIIa chronic kidney disease secondary to type 2 diabetes-BMP will be monitored, nephrology is following patient #9 ATN on a backdrop of stage IIIa chronic kidney disease-nephrology is participating in her care Charges/Coding Visit Charges Inpatient E&M: 76398 Subs Hosp L2
[2020-12-17 21:46] LABS: Bedside Glucose 222 mg/dL (70-110)
[2020-12-17] MEDS: Pravastatin 40 MG Tablet PO (21:47)
[2020-12-18] VITALS (13 sets, daily range): BP systolic 94–110; BP diastolic 70–77; PULSE 75–88; RESP 16–18; TEMP 36.2–36.7; O2SAT 97–100
[2020-12-18] MEDS: Acetaminophen 325 MG Tablet 650 MG PO ×2 (03:46→22:27)
[2020-12-18] MEDS: Ipratropium/Albuterol Sulfate 3 ML AMPUL.NEB INHALATION ×3 (06:45→19:18)
[2020-12-18 06:50] LABS: Bedside Glucose 197 mg/dL (70-110)
[2020-12-18] MEDS: Carvedilol 6.25 MG Tablet PO ×2 (07:33→20:55)
[2020-12-18] MEDS: Aspirin E.C. 81 MG Tablet PO (07:33)
[2020-12-18 08:01] LABS: BUN 70 mg/dL (7-18); BUN/Creat Ratio 43.8 RATIO (10-20); Calcium,Total 8.8 mg/dL (8.5-10.1); Chloride 98 mmol/L (98-107); EST Glomerular Filtration Rate 35 mL/min (>60); Est Glom Filt Rate - Afr Amer 43 mL/min (>60); Estimated Creatinine Clearance 38.18 ml/min; Glucose 164 mg/dL (74-106); Phosphorus 4.9 mg/dL (2.5-4.9); Potassium 4.7 mmol/L (3.5-5.1); Sodium Level 132 mmol/L (136-145)
--- NOTE | 2020-12-18 08:48 | PN.CARD_ITS ---
Subjective Subjective patient seen and evaluated Objective Data Vital Signs: Vital Signs Temp Pulse Resp BP Pulse Ox 97.2 F L 75 16 101/74 97 12/18/20 07:36 12/18/20 07:36 12/18/20 07:36 12/18/20 07:36 12/18/20 07:36 Oxygen Flow Rate (L/min) 2 Oxygen Delivery Method Room Air Weight: 231 lb 11.293 oz Body Mass Index (BMI) 34.5 Intake & Output: Intake and Output for Last 24 Hours 12/16/20 12/17/20 12/18/20 23:59 23:59 23:59 Intake Total 480 / 480 700 / 940 290 / 290 Output Total 175 / 175 Balance 305 / 305 700 / 940 290 / 290 Lab / Micro Data Result Diagrams: 12/14/20 04:46 12/18/20 07:10 Labs: Laboratory Results - last 24 hr 12/17/20 07:21: POC Glucose 222 H 12/17/20 11:25: POC Glucose 238 H 12/17/20 16:09: POC Glucose 260 H 12/17/20 21:39: POC Glucose 222 H 12/18/20 06:44: POC Glucose 197 H 12/18/20 07:10: Sodium 132 L, Potassium 4.7, Chloride 98, Carbon Dioxide 27.0, BUN 70 H, Creatinine 1.60 H, Estim Creat Clear Calc 38.18, Est GFR (MDRD) Af Amer 43 L, Est GFR (MDRD) Non-Af 35 L, BUN/Creatinine Ratio 43.8 H, Glucose 164 H, Calcium 8.8, Phosphorus 4.9, Albumin 3.0 L Cardiology Labs/Tests 12/18/20 07:10: Sodium 132 L, Potassium 4.7, Chloride 98, Carbon Dioxide 27.0, BUN 70 H, Creatinine 1.60 H, Est GFR (MDRD) Af Amer 43 L, Est GFR (MDRD) Non-Af 35 L, BUN/Creatinine Ratio 43.8 H, Glucose 164 H, Calcium 8.8, Phosphorus 4.9 Rhythm: EKG: ECHO: Stress Test: Cardiac Cath: PCI: CT Surgery: Holter monitor: EPS: PPM: CXR: Chest CT Scan: Assessment & Plan Assessment/Plan (1) History of PTCA: PLAN: She has had a prior history of PCI of the LAD in 2017 at [facility]. At some point we would need to reevaluate her coronary anatomy and depending on the findings further recommendations will be made. At this time however her creatinine appears to be rather precarious and we will hold off. (2) Cardiomyopathy: PLAN: She does have evidence of severe cardiomyopathy which is out of proportion to her previously reported coronary artery disease. * I would recommend at this time that we continue with her beta-filiberto * Continue to observe her creatinine until it plateaus and then decide on whether to start her on Entresto * I will hold off on any diuretics at this particular time and see how she does. She likely has had some contrast-induced nephropathy as well as hypoperfusion. * Will hold off on any APRIL inhibitor or ARB at this time due to the elevated creatinine * She will need to have a left heart catheterization at some point. This will be decided depending on how her creatinine changes. * Above discussed with patient and growth media mixer mushroom.
[2020-12-18] MEDS: Sertraline 50 MG Tablet PO (10:23)
[2020-12-18] MEDS: LINAGLIPTIN 5 MG TABLET PO (10:23)
[2020-12-18] MEDS: Pantoprazole Sodium 20 MG Tablet PO (10:23)
[2020-12-18 11:55] LABS: Bedside Glucose 210 mg/dL (70-110)
[2020-12-18] MEDS: Insulin Lispro 100 UNIT/ML INSULN.PEN SC ×3 (12:08→20:58)
--- NOTE | 2020-12-18 12:34 | PN.RENAL_ITS ---
Subjective Subjective still lightheaded with low BP. Denies SOB, CP. Edema improving Objective Data Objective Data Vital Signs: Vital Signs Temp Pulse Resp BP Pulse Ox 97.5 F L 76 18 94/71 100 12/18/20 10:20 12/18/20 11:00 12/18/20 10:20 12/18/20 10:20 12/18/20 10:20 Oxygen Flow Rate (L/min) 2 Oxygen Delivery Method Room Air Weight: 105.1 kg Body Mass Index (BMI) 34.5 Intake & Output: Intake and Output for Last 24 Hours 12/16/20 12/17/20 12/18/20 23:59 23:59 23:59 Intake Total 480 / 480 700 / 940 410 / 410 Output Total 175 / 175 Balance 305 / 305 700 / 940 410 / 410 Lab / Micro Data Result Diagrams: 12/14/20 04:46 12/18/20 07:10 Labs: Laboratory Results - last 24 hr 12/17/20 16:09: POC Glucose 260 H 12/17/20 21:39: POC Glucose 222 H 12/18/20 06:44: POC Glucose 197 H 12/18/20 07:10: Sodium 132 L, Potassium 4.7, Chloride 98, Carbon Dioxide 27.0, BUN 70 H, Creatinine 1.60 H, Estim Creat Clear Calc 38.18, Est GFR (MDRD) Af Amer 43 L, Est GFR (MDRD) Non-Af 35 L, BUN/Creatinine Ratio 43.8 H, Glucose 164 H, Calcium 8.8, Phosphorus 4.9, Albumin 3.0 L 12/18/20 11:53: POC Glucose 210 H Micro: Microbiology 12/13/20 23:08 Nasal Secretion SARS-CoV-2 Antigen (Rapid) - Final Radiography Diagnostic Testing: Radiology Impression Renal Ultrasound 12/17/20 08:00 IMPRESSION: Complex cyst in the right kidney. Simple cyst in left kidney. Diffuse bladder wall thickening with focal thickening at the base of the bladder. Correlation with the CT scan is recommended. Electronically Signed: Axel Harris MD at 8:51 EDT , Service support , Physical Exam Const alert, oriented x3 and no apparent distress Resp Auscultation: crackles right Cardio regular rate GI non-tender and non-distended GI Narrative: obese Palpation: soft Extremity General Extremity: edema bilateral Assessment & Plan Assessment/Plan (1) PATRICIA (acute kidney injury): PLAN: due to ATN from contrast exposure, cardiorenal syndrome with EF 10- 15%, hypoperfusion state. Creatinine improved to 1.6 with baseline 1.2. Cautious, minimize dye load with cath. Watch for contrast nephropathy following heart cath (2) Type 2 diabetes mellitus: PLAN: check upcr (3) Hypertension: QUALIFIERS: Hypertension type: essential hypertension Qualified Code(s): I10 - Essential (primary) hypertension PLAN: persistent hypotension. (4) Cardiomyopathy: PLAN: EF 10-15% continue with lasix for hypervolemia (5) History of PTCA: PLAN: CAD s/p stent 2016 (6) Leg edema: PLAN: Continue diuretics (7) CHF (congestive heart failure): PLAN: fluid restriction, low sodium diet, lasix (8) Hyponatremia: PLAN: likely due to volume expansion
[2020-12-18 16:25] LABS: Bedside Glucose 276 mg/dL (70-110)
--- NOTE | 2020-12-18 18:55 | PCM.PN.HOSP ---
Subjective Subjective Patient was seen and examined today, she was initially set up for cardiac catheterization but cardiology decided to wait another day and recheck her renal function. Patient has no complaints of any chest pain or shortness of breath. Objective Data Objective Data Vital Signs: Vital Signs Temp Pulse Resp BP Pulse Ox 97.7 F L 84 18 104/74 99 12/18/20 16:20 12/18/20 16:20 12/18/20 16:20 12/18/20 16:20 12/18/20 16:20 Oxygen Flow Rate (L/min) 2 Oxygen Delivery Method Room Air Weight: 105.1 kg Body Mass Index (BMI) 34.5 Intake & Output: Intake and Output for Last 24 Hours 12/16/20 12/17/20 12/18/20 23:59 23:59 23:59 Intake Total 480 / 480 700 / 940 650 / 650 Output Total 175 / 175 Balance 305 / 305 700 / 940 650 / 650 Lab / Micro Data Result Diagrams: 12/14/20 04:46 12/18/20 07:10 Labs: Laboratory Results - last 24 hr 12/17/20 21:39: POC Glucose 222 H 12/18/20 06:44: POC Glucose 197 H 12/18/20 07:10: Sodium 132 L, Potassium 4.7, Chloride 98, Carbon Dioxide 27.0, BUN 70 H, Creatinine 1.60 H, Estim Creat Clear Calc 38.18, Est GFR (MDRD) Af Amer 43 L, Est GFR (MDRD) Non-Af 35 L, BUN/Creatinine Ratio 43.8 H, Glucose 164 H, Calcium 8.8, Phosphorus 4.9, Albumin 3.0 L 12/18/20 11:53: POC Glucose 210 H 12/18/20 16:15: POC Glucose 276 H Micro: Microbiology 12/13/20 23:08 Nasal Secretion SARS-CoV-2 Antigen (Rapid) - Final Radiography Diagnostic Testing: Radiology Impression Renal Ultrasound 12/17/20 08:00 IMPRESSION: Complex cyst in the right kidney. Simple cyst in left kidney. Diffuse bladder wall thickening with focal thickening at the base of the bladder. Correlation with the CT scan is recommended. Electronically Signed: Axel Harris MD at 8:51 EDT , Service support , Physical Exam Const alert, oriented x3, no apparent distress and healthy appearing General Appearance: cooperative, well kempt and well developed Orientation / Consciousness: awake, oriented to person, oriented to place and oriented to time HEENT normocephalic and moist oral mucous membranes Eyes PERRL, EOMs intact bilaterally and conjunctivae normal Neck nuchal rigidity, supple, no JVD, thyroid normal and no carotid bruits General: trachea midline Resp normal respiratory effort and clear to auscultation bilaterally Auscultation: Negative for rales, rhonchi or wheezes Cardio regular rate, regular rhythm, no murmurs, no rub and no gallops GI normal to inspection, nondistended, normoactive bowel sounds, soft to palpation, non-tender and non-distended Extremity no clubbing, cyanosis or edema Skin no rashes or lesions noted General Skin Exam: no breakdown Neuro oriented x3, CN's II-XII intact bilaterally, no focal motor deficits and no sensory deficits noted Sensorium / Orientation: awake and alert Speech: speech normal Psych thought process normal and affect normal Assessment & Plan Assessment/Plan (1) CHF (congestive heart failure): (2) Cardiomyopathy: (3) Heart failure: QUALIFIERS: Heart failure type: unspecified Heart failure chronicity: acute Qualified Code(s): I50.9 - Heart failure, unspecified (4) Stented coronary artery: (5) Pleural effusion: PLAN: 1. Acute systolic congestive heart failure-due to the patient's elevated creatinine, cardiology is postponing the patient's cardiac catheterization, labs will be monitored #2 ischemic cardiomyopathy-ejection fraction 10 to 15%-cardiology at this time wants to hold off a cardiac cath due to the patient's impairment of her renal function #3 coronary artery disease #4 tachycardia secondary to #2-patient is on rate limiting medications currently #5 chronic obstructive pulmonary disease #6 type 2 diabetes-blood sugars will be monitored #7 hyperlipidemia #8 stage IIIa chronic kidney disease secondary to type 2 diabetes-BMP will be monitored, nephrology is following patient #9 ATN on a backdrop of stage IIIa chronic kidney disease-nephrology is participating in her care Charges/Coding Visit Charges Inpatient E&M: 83519 Subs Hosp L2
[2020-12-18] MEDS: Pravastatin 40 MG Tablet PO (20:55)
[2020-12-18 21:05] LABS: Bedside Glucose 228 mg/dL (70-110)
[2020-12-19] VITALS (11 sets, daily range): BP systolic 94–123; BP diastolic 65–105; PULSE 70–86; RESP 16–18; TEMP 36.1–36.7; O2SAT 94–100
[2020-12-19] MEDS: Acetaminophen 325 MG Tablet 650 MG PO (05:03)
--- NOTE | 2020-12-19 05:55 | EKG12_ITS ---
Test Reason : AM EKG Blood Pressure : / mmHG Vent. Rate : 076 BPM Atrial Rate : 076 BPM P-R Int : 172 ms QRS Dur : 098 ms QT Int : 420 ms P-R-T Axes : 075 013 105 degrees QTc Int : 472 ms Normal sinus rhythm Septal infarct (cited on or before 13-DEC-2020) Abnormal ECG When compared with ECG of 13-DEC-2020 21:29, Vent. rate has decreased BY 69 BPM Confirmed by ROSE BLANCO MD ([id number]), marketing editor ELROY SHI ([id number]) on 12/20/2020 1:51:09 PM Referred By: JOVITA Confirmed By:ROSE BLANCO MD
[2020-12-19] MEDS: Aspirin E.C. 81 MG Tablet PO (06:37)
[2020-12-19] MEDS: Carvedilol 6.25 MG Tablet PO (06:37)
[2020-12-19 06:38] LABS: Absolute Lymphocyte Count 1.41 X10^3/uL (0.83-4.51); Absolute Neutrophil Count 8.3 X10^3/uL (2.0-7.7); Basophil# 0.07 X10^3/uL; Basophil% 0.6 % (0-1); Eosinophils% 0.9 % (0-5); Hematocrit 34.5 % (37-47); Hemoglobin 11.1 g/dL (12.0-15.0); Lymphocyte # 1.41 X10^3/ul (0.83-4.51); Lymphocyte % 12.6 % (19-41); Mean Corp Hgb Conc 32.2 g/dL (32-36); Mean Corpuscular Hgb 27.3 pg (27.0-32.0); Mean Platelet Vol. 10.6 fl (6.2-12.0); Monocyte% 11.6 % (0-10); NRBC Flagged by Analyzer 0 % (0-5); Neutrophil # 8.27 X10^3/uL (2.7-7.7); Neutrophil % 73.9 % (47-70); Platelet Count 217 K/mm3 (150-450); RBC Distribution Width CV 16.5 % (11.6-14.6); RBC Distribution Width SD 51.2 fl (35.1-43.9); Red Blood Count 4.06 M/mm3 (4.2-5.4); White Blood Count 11.2 K/mm3 (4.4-11.0)
[2020-12-19 06:45] LABS: Bedside Glucose 117 mg/dL (70-110)
[2020-12-19] MEDS: Ipratropium/Albuterol Sulfate 3 ML AMPUL.NEB INHALATION (06:51)
[2020-12-19 07:10] LABS: ALB/GLOB Ratio 0.8 RATIO (0.9-2.4); AST(SGOT) 40 U/L (15-37); Alanine Aminotransfer ALT/SGPT 46 U/L (13-56); Albumin, Serum 2.8 g/dL (3.2-5.0); Alkaline Phosphatase 96 U/L (45-117); Anion Gap 7 (5-15); BUN 63 mg/dL (7-18); BUN/Creat Ratio 53.4 RATIO (10-20); Calcium,Total 8.6 mg/dL (8.5-10.1); Chloride 101 mmol/L (98-107); Creatinine, Serum 1.18 mg/dL (0.55-1.02); EST Glomerular Filtration Rate 50 mL/min (>60); Est Glom Filt Rate - Afr Amer 61 mL/min (>60); Estimated Creatinine Clearance 51.77 ml/min; Globulin 3.5 g/dL (2.2-4.2); Glucose 128 mg/dL (74-106); Protein, Total 6.3 g/dL (6.4-8.2); Sodium Level 131 mmol/L (136-145)
--- NOTE | 2020-12-19 08:06 | CASEMGMT ---
Addendum entered by Deepali Farr 12/19/20 08:54: [facility] is also in-network. Aneta LEBLANC CM Original Note: According to the [facility] website, the following are in-network tertiary facilities: [facility], [place], [place], [facility], [facility], [facility], [place], [facility], and . Aneta LEBLANC CM
--- NOTE | 2020-12-19 08:09 | PN.CARD_ITS ---
Subjective Subjective Patient seen and evaluated and underwent cardiac catheterization today Objective Data Vital Signs: Vital Signs Temp Pulse Resp BP Pulse Ox 98.1 F 71 16 94/65 96 12/19/20 06:38 12/19/20 07:02 12/19/20 07:02 12/19/20 06:38 12/19/20 06:38 Oxygen Flow Rate (L/min) 2 Oxygen Delivery Method Room Air Weight: 232 lb 12.93 oz Body Mass Index (BMI) 34.5 Intake & Output: Intake and Output for Last 24 Hours 12/17/20 12/18/20 12/19/20 23:59 23:59 23:59 Intake Total 700 / 940 650 / 950 600 / 600 Balance 700 / 940 650 / 950 600 / 600 Lab / Micro Data Result Diagrams: 12/19/20 06:30 12/19/20 06:30 Labs: Laboratory Results - last 24 hr 12/18/20 11:53: POC Glucose 210 H 12/18/20 16:15: POC Glucose 276 H 12/18/20 20:57: POC Glucose 228 H 12/19/20 06:30: WBC 11.2 H, RBC 4.06 L, Hgb 11.1 L, Hct 34.5 L, MCV 85.0, MCH 27.3, MCHC 32.2, RDW Std Deviation 51.2 H, RDW Coeff of [place]ble 16.5 H, Plt Count 217, MPV 10.6, Immature Gran % (Auto) 0.400, Neut % (Auto) 73.9 H, Lymph % (Auto) 12.6 L, [place] % (Auto) 11.6 H, Eos % (Auto) 0.9, Baso % (Auto) 0.6, Absolute Neuts (auto) 8.3 H, Absolute Lymphs (auto) 1.41, Nucleated RBC % 0 12/19/20 06:30: Sodium 131 L, Potassium 4.0, Chloride 101, Carbon Dioxide 23.0, Anion Gap 7, BUN 63 H, Creatinine 1.18 H, Estim Creat Clear Calc 51.77, Est GFR (MDRD) Af Amer 61, Est GFR (MDRD) Non-Af 50 L, BUN/Creatinine Ratio 53.4 H, Glucose 128 H, Calcium 8.6, Total Bilirubin 1.10 H, AST 40 H, ALT 46, Alkaline Phosphatase 96, Total Protein 6.3 L, Albumin 2.8 L, Globulin 3.5, Albumin/Globulin Ratio 0.8 L 12/19/20 06:33: POC Glucose 117 H Cardiology Labs/Tests 12/19/20 06:30: WBC 11.2 H, RBC 4.06 L, Hgb 11.1 L, Hct 34.5 L, MCV 85.0, MCH 27.3, MCHC 32.2, Plt Count 217, MPV 10.6, Immature Gran % (Auto) 0.400, Neut % (Auto) 73.9 H, Lymph % (Auto) 12.6 L, [place] % (Auto) 11.6 H, Eos % (Auto) 0.9, Baso % (Auto) 0.6, Absolute Neuts (auto) 8.3 H, Nucleated RBC % 0 12/19/20 06:30: Sodium 131 L, Potassium 4.0, Chloride 101, Carbon Dioxide 23.0, Anion Gap 7, BUN 63 H, Creatinine 1.18 H, Est GFR (MDRD) Af Amer 61, Est GFR (MDRD) Non-Af 50 L, BUN/Creatinine Ratio 53.4 H, Glucose 128 H, Calcium 8.6, Total Bilirubin 1.10 H Rhythm: EKG: ECHO: Stress Test: Cardiac Cath: PCI: CT Surgery: Holter monitor: EPS: PPM: CXR: Chest CT Scan: Radiography Diagnostic Testing: Radiology Impression Renal Ultrasound 12/17/20 08:00 IMPRESSION: Complex cyst in the right kidney. Simple cyst in left kidney. Diffuse bladder wall thickening with focal thickening at the base of the bladder. Correlation with the CT scan is recommended. Electronically Signed: Axel Harris MD at 8:51 EDT , Service support , Physical Exam Const alert, oriented x3 and no apparent distress General Appearance: cooperative HEENT hearing grossly normal bilaterally Head and Scalp: atraumatic Eyes EOMs intact bilaterally Neck General: normal visual inspection Chest inspection of chest normal and palpation of chest normal Resp normal respiratory effort Auscultation: clear to auscultation bilaterally Cardio regular rate, regular rhythm, S1 normal heart sound and S2 normal heart sound Jugular Venous Distention: JVD GI normal to inspection, nondistended, normoactive bowel sounds Extremity normal capillary refill and no pedal edema Peripheral Pulses: Yes pulses 2+ throughout and femoral pulses present Skin no rashes or lesions noted Neuro oriented x3 and CN's II-XII intact bilaterally Psych Appearance: grossly normal and appropriate Assessment & Plan Assessment/Plan (1) History of PTCA: PLAN: She has had a prior history of PCI of the LAD in 2017 at [facility]. Her cardiac catheterization demonstrated normal left main coronary artery: Left anterior descending artery with proximal stent with 70 to 80% stenosis and mid to distal stent with no in-stent stenosis. Proximal circumflex artery with 80% stenosis. Dominant right coronary artery with totally occluded mid segment and left to right collaterals. Severe left ventricular systolic dysfunction with estimated ejection fraction of 10%. 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 (2) Cardiomyopathy: PLAN: She does have evidence of severe cardiomyopathy which is out of proportion to her previously reported coronary artery disease. * I would recommend at this time that we continue with her beta-filiberto * Continue to observe her creatinine until it plateaus and then decide on whether to start her on Entresto * Cautious use of diuretic therapy
[2020-12-19] MEDS: LINAGLIPTIN 5 MG TABLET PO (08:40)
[2020-12-19] MEDS: Sertraline 50 MG Tablet PO (08:40)
[2020-12-19] MEDS: Pantoprazole Sodium 20 MG Tablet PO (08:40)
[2020-12-19] MEDS: 0.9% Normal Saline 1,000 ML 60 ML IV (08:44)
--- NOTE | 2020-12-19 08:48 | PCM.PN.BLA ---
Progress Note creatinine 1.18 today, heart cath today with multivessel disease. Denies chest pain, SOB. Still with leg edema. Assessment & Plan Assessment/Plan (1) PATRICIA (acute kidney injury): PLAN: due to ATN from contrast exposure, cardiorenal syndrome. Creatinine improved to 1.18 today. Heart cath today with limited dye showing multivessel disease, need CABG. Gentle hydration post cath. Monitor for contrast nephropathy. (2) Type 2 diabetes mellitus: (3) Cardiomyopathy: PLAN: EF 10-15% continue with lasix for hypervolemia. Consider low dose Entresto if tolerated for severe CMP. (4) History of PTCA: PLAN: CAD s/p stent 2016 (5) CHF (congestive heart failure): PLAN: fluid restriction, low sodium diet, continue lasix (6) Hyponatremia: PLAN: likely due to volume expansion
[2020-12-19 08:57] LABS: International Normalized Ratio 1.8; Prothrombin Time (Protime)PT. 20.5 SECONDS (11.7-14.9)
[2020-12-19 09:03] LABS: Partial Thromboplast Time 124.2 Seconds (24.1-36.2)
[2020-12-19] MEDS: Insulin Lispro 100 UNIT/ML INSULN.PEN SC (11:40)
[2020-12-19 11:51] LABS: Bedside Glucose 164 mg/dL (70-110)
[2020-12-19] MEDS: TICAGRELOR 90 MG TABLET 180 MG PO (12:51)
--- NOTE | 2020-12-19 13:00 | DS.PCM_ITS ---
Providers Date of Admission: 12/14/20 Date of Discharge: 12/19/20 Primary Care Physician: Dr. Ted Denis MD Consultations 12/14/20 14:58 Consult: Cardiology Routine Consulting Provider: Miranda Ross Reason for Consult: tacycardia EMERGENT Consult: No Notified: Yes Date Notified: 12/14/20 Time Notified: 14:59 Method of Notification: Verbal 12/16/20 11:27 Consult: Nephrology Routine Consulting Provider: Amber Peacock Reason for Consult: elevated BUN and Creatine EMERGENT Consult: No Notified: Yes Date Notified: 12/16/20 Time Notified: 11:29 Method of Notification: Text Reason For Visit: ACUTE HEART FAILURE Diagnosis Discharge Diagnosis (1) PATRICIA (acute kidney injury): Status: Acute Code(s): N17.9 - Acute kidney failure, unspecified (2) Type 2 diabetes mellitus: Status: Chronic Code(s): E11.9 - Type 2 diabetes mellitus without complications (3) Cardiomyopathy: Status: Acute Code(s): I42.9 - Cardiomyopathy, unspecified (4) History of PTCA: Status: Chronic Code(s): Z98.61 - Coronary angioplasty status (5) CHF (congestive heart failure): Status: Acute Code(s): I50.9 - Heart failure, unspecified (6) Hyponatremia: Status: Acute Code(s): E87.1 - Hypo-osmolality and hyponatremia Plan: 1. Acute systolic congestive heart failure #2 ischemic cardiomyopathy #3 occlusive coronary artery [id number] #4 tachycardia secondary to #2 #5 chronic obstructive pulmonary disease #6 type 2 diabetes #7 hyperlipidemia #8 stage IIIa chronic kidney disease secondary to type 2 diabetes #9 acute tubular necrosis on a backdrop of stage IIIa chronic kidney disease Medications at Discharge Home Medications Brilinta 90 mg PO BID 07/02/18 losartan [Cozaar] 50 mg PO DAILY 07/02/18 metformin 1,000 mg PO BIDCM 07/02/18 omeprazole 20 mg PO DAILY 07/02/18 Januvia 100 mg PO DAILY 07/29/18 glimepiride 4 mg PO DAILY 07/29/18 acetaminophen [Tylenol] 650 mg PO Q6H PRN PRN tablet 08/03/18 albuterol sulfate 1 puff INHALATION Q4H PRN PRN 10/01/20 pravastatin 40 mg PO QHS 10/01/20 umeclidinium-vilanterol [Anoro Ellipta] 1 inh INHALATION DAILY 10/01/20 furosemide 80 mg PO DAILY 12/13/20 sertraline 50 mg PO DAILY 12/13/20 Hospital Course Operations None Procedures 2-D Echocardiogram and Cardiac catheterization Summary of Care Provided Minutes Spent on Discharge: 33 Hospital Course: This 55-year-old white female was seen in the emergency room at [facility] with a chief complaint of shortness of breath, she had been seen as an outpatient by her PCP and placed on medications a few days prior but her shortness of breath increased. Work-up in the emergency room included a chest x-ray which showed no evidence of acute disease, EKG was obtained which showed a sinus tachycardia with a ventricular rate of 145 bpm. Patient's D-dimer was elevated at 4, a CT of the chest was obtained which showed a right-sided pleural effusion without evidence of PE, there was some concern of groundglass opacities. Patient's COVID-19 test was negative. Patient was admitted to PCU for congestive heart failure, an echocardiogram was obtained which showed the patient had a severely impaired ejection fraction of 10 to 15%. Patient was seen in consultation by cardiology who scheduled the patient for a cardiac catheterization, however, the patient's creatinine went up-this was felt secondary to ATN because the patient had contrast for her CTA. The patient's cardiac catheterization was postponed due to this and she was seen in consultation by nephrology. Patient finally had a cardiac catheterization performed which showed severe triple-vessel disease, arrangements were made for the patient be transferred to tertiary facility for evaluation of further invasive treatment such as a bypass surgery. On 12/19/2020, patient was seen and examined: On examination she appeared in good health and spirits, she does not appear to be in any distress. Vital signs as documented. Skin warm and dry and without overt rashes. Neck without JVD, thyroi d appears normal, trachea is midline, neck is supple. Lungs clear, normal air movement was noted. Heart exam notable for regular rhythm, normal sounds and absence of murmurs, rubs or gallops. Abdomen unremarkable and without evidence of organomegaly, masses, or abdominal aortic enlargement, bowel sounds are present in all 4 quadrants, no abdominal tenderness was noted. Extremities nonedematous, no cyanosis was noted, no clubbing was noted. Neuro: Cranial nerves II through XII are grossly intact, no focal motor deficits were noted, sensation to light touch and pinprick is intact, motor exam 5/5 throughout. Psych: Patient is alert and oriented x3, she does not appear anxious or depressed, she does not appear agitated. Patient appears stable for transfer to [facility] in [facility] for further treatment on 12/19/2020. Weight / BMI Weight Weight: 105.6 kg Body Mass Index (BMI) 34.5 ABG / Lab / Microbiology Data Result Diagrams: 12/19/20 06:30 12/19/20 06:30 Microbiology: Microbiology 12/13/20 23:08 Nasal Secretion SARS-CoV-2 Antigen (Rapid) - Final Meaningful Use Info Meaningful Use Diagnoses (Choose all that apply): CHF CHF APRIL/ARB ordered at discharge?: No Reason APRIL/ARB not ordered?: Worsening renal disease Documented LVEF (%): 10 Discharge Plan Admission Admit Date/Time: 12/14/20 01:16 Attending Provider: Vitaly Recinos Primary Care Provider: Ted Denis Consulting Providers: Miranda Ross ; Amber Peacock Instructions Patient Instructions: Thoracentesis Dc Additional Instructions / Restrictions: Patient Problems: Altered Health Status related to Hospitalization Patient Goals: *Optimal Level of Health *Keep Appointments *Medication Compliance *Remain Safe Discharge Orders/Prescriptions Prescriptions: No Action losartan [Cozaar] 50 MG tablet 50 mg PO DAILY RF: 0 metformin 1,000 MG tablet 1,000 mg PO BIDCM RF: 0 omeprazole 20 MG capsule 20 mg PO DAILY RF: 0 Brilinta 90 MG tablet 90 mg PO BID RF: 0 glimepiride 4 tablet 4 mg PO DAILY RF: 0 Januvia 100 MG tablet 100 mg PO DAILY RF: 0 acetaminophen [Tylenol] 325 MG tablet 650 mg PO Q6H PRN PRN (Reason: Mild Pain (1-3)/Temp > 100.7 F) RF: 0 pravastatin 40 mg tablet 40 mg PO QHS RF: 0 albuterol sulfate 90 mcg/actuation HFA aerosol inhaler 1 puff INHALATION Q4H PRN PRN (Reason: Shortness Of Breath) RF: 0 Anoro Ellipta 62.5-25 mcg/actuation blister with device 1 inh INHALATION DAILY RF: 0 furosemide 80 mg tablet 80 mg PO DAILY RF: 0 sertraline 50 mg tablet 50 mg PO DAILY RF: 0 Referrals / Follow Up: Ted Denis MD [Primary Care Provider] - Disposition Discharge Orders: Discharge Patient (Routine); Ordered 12/19/20 Ordered By: Dr. Vitaly Recinos Charges/Coding Visit Charges Inpatient E&M: 36267 Disch Hosp
--- NOTE | 2020-12-24 11:23 | CL.D_ITS ---
Patient Name: DENZEL WALLS Study Date: 12/19/2020 Performing: Ruel Steen MD Ht: 67 inches 171 cm : 1965 Wt: 234 lbs 106 kg Age: 55 Gender: female BSA: 2.17 PROCEDURE(S) PERFORMED [id number] CLINICAL PROFILE AND INDICATIONS Indications: Cardiomyopathy Heart Failure: NYHA Class: 3, Newly Diagnosed: Yes, Heart Failure Type: Systolic Stress/Imaging Stress/Image Study Performed: No CAD Presentations: Other: sob CONCLUSIONS Severe triple-vessel disease with severe left ventricular systolic dysfunction and precarious renal s john. RECOMMENDATIONS Will need to discuss with interventionalist, renal service, surgery as to the best approach for this patient. DESCRIPTION OF PROCEDURE The patient arrived to the procedure lab. The risks and benefits of the procedure as well as a full d escription of our services here and current unavailability of surgical backup were fully explained to the patient and/or their significant other prior to the catheterization. The Timeout was completed, verifying the correct patient and procedure. The patient's procedural site was prepped and draped in the usual fashion. Local anesthetic was given subcutaneously to right radial region with Lidocaine 2% . Using a modified Seldinger technique, arterial access was obtained via the right radial artery, a 6 Fr sheath was inserted. Right Coronary Artery selective angiography was then performed in multiple v iews using a 5 Fr. 4.0 [place] catheter. Left Coronary Artery selective angiography was performed in mu ltiple views using a 5 Fr. 4.0 [place] catheter.The arterial sheath was pulled and a TR Band was applie d for hemostasis. 10cc of air CORONARY ANGIOGRAPHY DOMINANCE: Right Dominant LEFT HEART ASSESSMENT Left Ventricular Ejection Fraction: by Echo 10 % Global Hypokinesis - Severe Depressed Left Ventricular systolic function LEFT MAIN: No significant disease noted LEFT ANTERIOR DESCENDING ARTERY: PROX LAD: Previously placed stent has an instent 70 % restenosis DISTAL LAD: Previously placed stent is patent CIRCUMFLEX ARTERY: PROX CIRC: 80 % Stenosis RIGHT CORONARY ARTERY: MID RCA: is occluded COLLATERAL FLOW: Collateral flow from Left to Right COMPLICATIONS No Complications PROCEDURE MEDICATIONS Fentanyl 25 mcg IV Versed 0.5 mg IV Oxygen: 2 L/min via nasal cannula Heparin given IA 12/19/2020 07:54:39 SUMMARY OF HEMODYNAMIC DATA Time AIR REST ECG 07:40:56 AO 97/72 (83) SA 07:56:35 Signed By Ruel Steen MD On 12/24/2020 11:21:23 Ruel Steen MD
== END 2020-12-19 15:37 | disposition short-term general hospital (02) | DRG 286 ==
LOC: ED 21:25 → PCU 12-14 02:11
PROVIDERS: Family Medicine; Internal Medicine Nephrology; Admitting Provider Hospitalist; Emergency Provider Student in an Organized Health Care Education/Training Program; Visit Provider Internal Medicine
DX: I13.0 Hypertensive heart and chronic kidney disease with heart failure and stage 1 through stage 4 chronic kidney disease, or unspecified chronic kidney disease (principal); N17.0 Acute kidney failure with tubular necrosis; I50.23 Acute on chronic systolic (congestive) heart failure; E87.1 Hypo-osmolality and hyponatremia; N18.31 Chronic kidney disease, stage 3a; J44.9 Chronic obstructive pulmonary disease, unspecified; E11.22 Type 2 diabetes mellitus with diabetic chronic kidney disease; G47.30 Sleep apnea, unspecified; F17.210 Nicotine dependence, cigarettes, uncomplicated; I25.5 Ischemic cardiomyopathy; E78.5 Hyperlipidemia, unspecified; I25.10 Atherosclerotic heart disease of native coronary artery without angina pectoris; I25.2 Old myocardial infarction; Z91.19 Patient's noncompliance with other medical treatment and regimen; H54.7 Unspecified visual loss; E11.21 Type 2 diabetes mellitus with diabetic nephropathy; Z79.84 Long term (current) use of oral hypoglycemic drugs; Z95.5 Presence of coronary angioplasty implant and graft
CPT/HCPCS: 36415; 71045; 71275; 76604; 76770; 80048; 80053; 80069; 82570; 82962; 83615; 84156; 84300; 84484; 85025; 85379; 85610; 85730; 87426; 87635; 93005; 93306; 93458; 93970; 94640; 99152; 99153; 99285; 99406; J7030; J7040; Q9957; Q9967; U0005; A4216; C1769; C1894; C8929; J1940; J3490; U0003